=== PATIENT | male | born 1935 | race Caucasian/White ===

== ENCOUNTER 2018-07-22 21:32 | Inpatient (IN) ==
[2018-07-22] MEDS ORDERED: Acetaminophen 325 MG Tablet PO ONE (21:50)
[2018-07-22] MEDS ORDERED: Diphtheria/Tetanus/Pertussis Vaccine Inj 0.5 ML Syringe IM ONE (21:50)
--- NOTE | 2018-07-22 21:56 | ED ---
HPI General Chief complaint: Head Injury Stated complaint: Fall x 1 hr/hit head Time Seen by Provider: 07/22/18 21:42 Source: patient, family and RN notes reviewed Mode of arrival: ambulatory History of Present Illness HPI narrative: 82yM presenting with head injury. The patient's friend says that she had mopped the tile floor in front of the patient's chair, and when he got up he slipped and fell forward, hitting his head on the floor. No LOC, patient reports neck pain ("aching", non-radiating, constant, moderate intensity, not made better or worse by anything), denies numbness/ tingling/ weakness of extremities. He takes aspirin but no other anticoagulants/ antiplatelets. He does not recall when his last tetanus booster was. Family history is non-contributory. Related Data Home Medications Medication Instructions Recorded Confirmed amlodipine 10 mg PO DAILY 07/22/18 07/22/18 aspirin 81 mg PO DAILY 07/22/18 07/22/18 benazepril-hydrochlorothiazide 1 tab PO DAILY 07/22/18 07/22/18 carbidopa-levodopa 2 tab PO Q8H 07/22/18 07/22/18 cetirizine 10 mg PO HS 07/22/18 07/22/18 citalopram 10 mg PO DAILY 07/22/18 07/22/18 ibuprofen 800 mg PO TID PRN 07/22/18 07/22/18 Allergies Allergy/AdvReac Type Severity Reaction Status Date / Time simvastatin Allergy Intermediate RASH Verified 07/22/18 22:02 haloperidol [From Haldol] Allergy Hallucinati Verified 07/22/18 22:05 ons prochlorperazine Allergy Anaphylaxis Verified 07/22/18 22:05 [From Compazine] Review of Systems ROS: all other systems reviewed are negative Constitutional Denies headache(s) Eyes Denies blurry vision Cardiovascular Denies chest pain Respiratory Denies cough Gastrointestinal Denies nausea Genitourinary Denies dysuria Musculoskeletal Reports neck pain Integumentary/Breasts Reports wounds Neurologic Reports tremor(s) Psychiatric Denies confusion PMFSH History History Provided By: Patient Medical History Medical History Hypertension (Acute) Parkinson disease (Acute) Surgical History Surgical History H/O hernia repair (Acute) Social History Social History (Reviewed 07/22/18 @ 21:56 by DEBORAH Block Substance History: No History of Abuse Second Hand Smoke Exposure: No Smoking Status: Former smoker How Often Do You Have a Drink Containing Alcohol: Never Recent Travel in [facility] within the Last 8 Weeks: No Recent Out of Country Travel within the Last 8 Weeks: No Exam Const General: healthy appearing and no acute distress [facility] Other: Superficial 1 cm abrasion to midline upper forehead near hairline, no active bleeding No raccoon eyes or Jeronimo's sign No other head or facial trauma Eyes General: appearance normal, both eyes and all related structures Pupils: PERRL Neck Other: No midline cervical spinal tenderness, cervical collar applied in triage Chest Chest: normal inspection of the chest Resp Effort & Inspection: normal respiratory effort Auscultation: no rhonchi and no wheezes Cardio Rate: regular rate Rhythm: regular rhythm GI Inspection: non-distended Palpation: soft and nontender Skin General: no rashes or lesions noted Neuro General: alert, awake, oriented x3 and no focal motor deficits Other: GCS 15, pupils 3 mm and reactive, speech clear and fluent, answers questions slowly but appropriately (+) tremor (baseline as per friend) Motor strength 5/5 in bilateral shoulder abduction/ adduction/ flexion/ extension, elbow flexion/ extension, deputy assessor strength Motor strength 5/5 in lower extremities, no foot drop Sensation intact to all extremities Psych Affect: normal affect Course Consultations Consultation #1: Case discussed with Dr. Currie of neurosurgery, who recommends that the patient be transferred to the main campus for ICU level of care with AM MRI. I also spoke with Dr. Muse (trauma/ [facility]), who has accepted the patient and would like a CTA neck to rule out blunt cerebrovascular injury, preferably before transfer. Time: 23:03 Initial Documented Vital Signs Temperature 98.5 F 07/22/18 21:36 Pulse Rate 86 07/22/18 21:36 Respiratory Rate 20 07/22/18 21:36 Blood Pressure 132/70 07/22/18 21:36 Pulse Oximetry 96 07/22/18 21:36 Last Documented Vital Signs Temperature 98.5 F 07/22/18 21:36 Pulse Rate 89 07/22/18 23:29 Respiratory Rate 15 07/22/18 23:29 Blood Pressure 146/73 H 07/22/18 23:29 Pulse Oximetry 97 07/22/18 23:29 Critical Care Time Critical Care Time: Yes Total Critical Care Time: 35 Attestation: Total critical care time 35 minutes. This includes examining and stabilizing the patient, gathering a history from a source other than the patient (i.e., chart review, friend), formulating a differential diagnosis, ordering and interpreting laboratory tests, ordering and interpreting radiology tests, discussing the patient's care with other providers (neurosurgery, trauma / critical care attending), arranging transfer to another institution for higher level of care, re-evaluation at frequent intervals, and documentation. Amount of time is separate from teaching, counseling the patient and/or family, and exclusive of procedures. Medical Decision Making MDM Narrative Medical decision making narrative: Assessment: 82yM presenting with head injury after mechanical fall Plan: Tylenol for pain Update tetanus CTH and C spine Addendum: Patient found to have type 3 dens fracture and C1 arch fractures. He will need transfer to the main campus for trauma/ neurosurgical evaluations and ICU level of care. I spoke at length with the patient and his hospice liason ( he is on home hospice for Parkinson's disease); the patient is unsure if he would want surgical intervention if needed but is agreeable to transfer and further workup. Case discussed with Dr. Currie of neurosurgery and Dr. Mina of trauma, please see "consults" section above. Medical Screen Exam Complete: Yes Emergency Medical Condition: Yes Differential Diagnosis Differential Diagnosis: Differential diagnosis includes, but is not limited to: ICH, skull fracture, C spine fracture, closed head injury, facial abrasion Lab Data Lab results reviewed: Yes I reviewed the patient's lab results. Result diagrams: 07/22/18 23:20 07/22/18 23:20 Lab Results 07/22/18 07/22/18 Range/Units 23:20 23:20 CBC w Diff Auto diff final WBC 7.7 (4.0-11.0) th/mm3 RBC 4.78 (4.50-5.90) mil/mm3 Hgb 14.2 (13.0-17.0) gm/dL Hct 42.5 (39.0-51.0) % MCV 88.8 (80.0-100.0) fL MCH 29.7 (27.0-34.0) pg MCHC 33.4 (32.0-36.0) % RDW 13.3 (11.6-17.2) % Plt Count 256 (150-450) th/mm3 MPV 8.1 (7.0-11.0) fL Neut % (Auto) 72.9 H (16.0-70.0) % Lymph % (Auto) 18.3 (9.0-44.0) % [place] % (Auto) 5.3 (0.0-8.0) % Eos % (Auto) 2.8 (0.0-4.0) % Baso % (Auto) 0.7 (0.0-2.0) % Neut # (Auto) 5.6 (1.8-7.7) th/mm3 Lymph # (Auto) 1.4 (1.0-4.8) th/mm3 [place] # (Auto) 0.4 (0.0-0.9) th/mm3 Eos # (Auto) 0.2 (0.0-0.4) th/mm3 Baso # (Auto) 0.1 (0.0-0.2) th/mm3 WBC Differential . Differential Comment . PT 10.8 (9.8-11.6) sec INR 1.1 Ratio Imaging Data Radiologist's impression: Cervical Spine CT 07/22/18 21:50 CONCLUSION: 1. Fracture of the dens at the level of the inferior arch of C1 with mild widening anterior but no posterior displaced fragment. 2. Fractures of the posterior arch of C1 on both the right and left side. Head CT 07/22/18 21:50 CONCLUSION: 1. No acute findings in the brain. . Discharge Plan Discharge Disposition Patient Disposition: 02 Transfer To [facility] Discharge Condition Condition: Stable Discharge Details Diagnosis: C1 cervical fracture, Closed dens fracture, Fall from standing Physicians Team ED Provider: Margarita Pena Primary Care Provider: Robin Jackson Attending Provider: Shilpa Mina Other Providers: Ephraim Currie Status ED Status: Admitted Patient
--- NOTE | 2018-07-22 22:23 | CT ---
EXAM DATE: 07/22/2018 9:57 PM EDT AGE/SEX: 82 years / Male INDICATIONS: Trauma. Fall. Frontal abrasion. CLINICAL DATA: This is the patient's initial encounter. Patient reports that signs and symptoms have been present for 1 day and indicates a pain score of 1/10. MEDICAL/SURGICAL HISTORY: Hypertension. Parkinson's disease. None. RADIATION DOSE: 67.02 CTDI (mGy) COMPARISON: [facility], CT BRAIN W/O CONTRAST, 02/26/2016. . TECHNIQUE: CT of the head without contrast. Using automated exposure control and adjustment of the mA and/or kV according to patient size, radiation dose was kept as low as reasonably achievable to ob tain optimal diagnostic quality images. DICOM format image data is available electronically for revi ew and comparison. FINDINGS: Cerebrum: The ventricles are normal for age. No evidence of midline shift, mass lesion, hemorrhage or acute infarction. No extraaxial fluid collections are seen. Decreased attenuation in the supraten torial white matter suggests diffuse ischemic change, stable from 2016. Posterior Fossa: The cerebellum and brainstem are intact. The 4th ventricle is midline. The cerebe llopontine angle is unremarkable. Extracranial: The visualized portion of the orbits is intact. Skull: The calvaria is intact. No evidence of skull fracture. CONCLUSION: 1. No acute findings in the brain. . Electronically signed by: Wilton Lemos MD 07/22/2018 10:21 PM EDT
--- NOTE | 2018-07-22 22:31 | CT ---
EXAM DATE: 07/22/2018 9:57 PM EDT AGE/SEX: 82 years / Male INDICATIONS: Trauma. Fall. CLINICAL DATA: This is the patient's initial encounter. Patient reports that signs and symptoms have been present for 1 day and indicates a pain score of 1/10. MEDICAL/SURGICAL HISTORY: Hypertension. Parkinson's disease. None. RADIATION DOSE: 26.39 CTDI (mGy) COMPARISON: No prior exams available for comparison. TECHNIQUE: Contiguous axial images were obtained using helical multirow detector technique. The vol umetric data was post-processed with multiplanar reconstruction in oblique axial, sagittal, and coron al planes. Using automated exposure control and adjustment of the mA and/or kV according to patient s ize, radiation dose was kept as low as reasonably achievable to obtain optimal diagnostic quality salvatore ges. DICOM format image data is available electronically for review and comparison. FINDINGS: Examination is abnormal. At C1, there are bilateral posterior ring fractures with 3 mm separation of the right fracture and no displacement of the left fracture. The anterior arch is intact. There is a fracture of the mid dens with mild widening of the anterior fracture line. There is no dis placement of the posterior cortex of the dens with respect to the body of C2. The relationship of ant erior arch and the dens is maintained. The alignment of the cervical vertebral bodies is maintained. There is extensive discogenic degenerat roosevelt changes from C3 through C7 and prominent hypertrophic changes in the facet joints on the left roma e from C3 through C7. No evidence of locked or perched facets. No significant epidural impression seen. Moderate bony neural foraminal stenosis at C3-4, C4-5, C5-6. CONCLUSION: 1. Fracture of the dens at the level of the inferior arch of C1 with mild widening anterior but no p osterior displaced fragment. 2. Fractures of the posterior arch of C1 on both the right and left side. Electronically signed by: Wilton Lemos MD 07/22/2018 10:30 PM EDT
[2018-07-22 23:55] LABS: Baso # (Auto) 0.1 th/mm3 (0.0-0.2); Baso % (Auto) 0.7 % (0.0-2.0); Eos # (Auto) 0.2 th/mm3 (0.0-0.4); Eos % (Auto) 2.8 % (0.0-4.0); Hematocrit 42.5 % (39.0-51.0); Hemoglobin 14.2 gm/dL (13.0-17.0); Lymph # (Auto) 1.4 th/mm3 (1.0-4.8); Lymph % (Auto) 18.3 % (9.0-44.0); Mean Corpuscular HGB Conc 33.4 % (32.0-36.0); Mean Corpuscular Hemoglobin 29.7 pg (27.0-34.0); Mean Corpuscular Volume 88.8 fL (80.0-100.0); Mean Platelet Volume 8.1 fL (7.0-11.0); Mono # (Auto) 0.4 th/mm3 (0.0-0.9); Mono % (Auto) 5.3 % (0.0-8.0); Neut # (Auto) 5.6 th/mm3 (1.8-7.7); Neut % (Auto) 72.9 % (16.0-70.0); Platelet Count 256 th/mm3 (150-450); Red Blood Count 4.78 mil/mm3 (4.50-5.90); Red Cell Distribution Width 13.3 % (11.6-17.2); White Blood Count 7.7 th/mm3 (4.0-11.0)
[2018-07-23 00:05] LABS: INR 1.1 Ratio; Prothrombin Time 10.8 sec (9.8-11.6)
[2018-07-23 00:26] LABS: Chloride 100 meq/L (98-107); Potassium 3.8 meq/L (3.5-5.1); Sodium 135 meq/L (136-145)
[2018-07-23 00:28] LABS: Anion Gap 7 meq/L (5-15); Calcium 9.2 mg/dL (8.5-10.1); Carbon Dioxide 28.1 meq/L (21.0-32.0); Glucose,Random 103 mg/dL (74-106)
[2018-07-23 00:29] LABS: Blood Urea Nitrogen 17 mg/dL (7-18)
[2018-07-23 00:32] LABS: Glomerular Filtration Rate Greater Than 89 mL/min (>89)
[2018-07-23] MEDS: Sod Chloride 0.9% Inj 1,000 ML IV.CONT SCH (01:15)
--- NOTE | 2018-07-23 01:34 | CT ---
EXAM DATE: 07/23/2018 1:04 AM EDT AGE/SEX: 82 years / Male INDICATIONS: Neck fracture. CLINICAL DATA: This is the patient's initial encounter. Patient reports that signs and symptoms have been present for 1 day and indicates a pain score of 8/10. MEDICAL/SURGICAL HISTORY: Non-responsive. Non-responsive. RADIATION DOSE: 12.06 CTDI (mGy) COMPARISON: No prior exams available for comparison. TECHNIQUE: Volumetric scanning was performed using a multirow detector CT scanner during bolus infus ion of 75 ml Omnipaque 350 (iohexol) nonionic water-soluble contrast as a single exam dose. The da ta was postprocessed with a variety of visualization algorithms including full-volume maximum intensi ty projection, multiplanar sliding thin-slab reformation, curved-planar reformation, and surface-rend ering techniques. Using automated exposure control and adjustment of the mA and/or kV according to p atient size, radiation dose was kept as low as reasonably achievable to obtain optimal diagnostic sonia lity images. DICOM format image data is available electronically for review and comparison. Percent stenosis is calculated using the diameter of the stenotic region over the diameter of the nor mal distal internal carotid artery. FINDINGS: Aortic Arch: There is a three-vessel origin of the great vessels from the aorta. No evidence of ost ial narrowing Right Carotid: The common carotid artery is intact. Calcified plaque at the carotid bulb. No evidenc e of significant stenosis. The internal carotid artery lumen is smooth without stenosis. The externa l carotid artery is intact. Left Carotid: The common carotid artery is intact. Calcified plaque at the carotid bulb. No evidenc e of significant stenosis. The internal carotid artery lumen is smooth without stenosis. The exter nal carotid artery is intact. Vertebrals: Left vertebral artery is dominant. No evidence of significant stenosis or dissection CONCLUSION: 1. Atherosclerotic disease of the carotid bulbs but no evidence of significant carotid stenosis. 2. Vertebral arteries are widely patent. No evidence of dissection. 3. Cervical spine fracture fully described on cervical spine CT report. Electronically signed by: Carlyle Quinteros MD 07/23/2018 1:33 AM EDT
[2018-07-23] MEDS ORDERED: Chlorhexidine Gluconate 2% 1 Pack (2 Cloths) TOPICAL PRN (04:00)
[2018-07-23] MEDS: Chlorhexidine Gluconate 2% 1 Pack (2 Cloths) TOPICAL SCH (04:16)
[2018-07-23] MEDS ORDERED: Bisacodyl 10 MG Supp RECTAL PRN (06:08)
[2018-07-23 06:18] LABS: Hematocrit 39.9 % (39.0-51.0)
[2018-07-23 06:32] LABS: Anion Gap 7 meq/L (5-15); Blood Urea Nitrogen 13 mg/dL (7-18); Calcium 8.9 mg/dL (8.5-10.1); Carbon Dioxide 27.7 meq/L (21.0-32.0); Chloride 102 meq/L (98-107); Glomerular Filtration Rate Greater Than 89 mL/min (>89); Glucose,Random 92 mg/dL (74-106); Potassium 4.2 meq/L (3.5-5.1); Sodium 137 meq/L (136-145)
[2018-07-23 06:34] LABS: Hemoglobin 13.5 gm/dL (13.0-17.0); Mean Corpuscular Hemoglobin 29.9 pg (27.0-34.0); Mean Corpuscular Volume 87.5 fL (80.0-100.0); Mean Platelet Volume 8.1 fL (7.0-11.0); Platelet Count 219 th/mm3 (150-450); Red Blood Count 4.53 mil/mm3 (4.50-5.90); Red Cell Distribution Width 13.9 % (11.6-17.2); White Blood Count 7.2 th/mm3 (4.0-11.0)
[2018-07-23] MEDS: Pantoprazole Inj 40 MG Vial IV.PUSH SCH (08:24)
[2018-07-23 09:23] LABS: Baso % (Auto) 0.9 % (0.0-2.0); Eos % (Auto) 2.1 % (0.0-4.0); Lymph # (Auto) 1.1 th/mm3 (1.0-4.8); Lymph % (Auto) 15.3 % (9.0-44.0); Mono # (Auto) 0.4 th/mm3 (0.0-0.9); Mono % (Auto) 6.1 % (0.0-8.0); Neut # (Auto) 5.4 th/mm3 (1.8-7.7); Neut % (Auto) 75.6 % (16.0-70.0)
[2018-07-23 09:24] LABS: Baso # (Auto) 0.1 th/mm3 (0.0-0.2); Eos # (Auto) 0.1 th/mm3 (0.0-0.4)
--- NOTE | 2018-07-23 11:41 | MR ---
EXAM DATE: 07/23/2018 10:14 AM EDT AGE/SEX: 82 years / Male INDICATIONS: Fracture. Post fall. CLINICAL DATA: This is the patient's subsequent encounter. Patient reports that signs and symptoms h ave been present for 1 day and indicates a pain score of 3/10. MEDICAL/SURGICAL HISTORY: Parkinson's disease. . hernia COMPARISON: [facility], CT CERVICAL SPINE W/O CONTRAST, 07/22/2018. . TECHNIQUE: Multiplanar, multisequence MRI examination of the cervical spine was performed without co ntrast. FINDINGS: There are stable fractures of the posterior arch of C1 and minimally displaced dens fracture unchange d from recent CT on July 22. Exaggerated cervical lordosis present. There is moderate degenerative disc disease throughout the cervical spine with posterior disc osteoph yte complexes effacing the anterior thecal sac. However no cord compression. Minimal degenerative ant erolisthesis of C5 on C6, stable. No cord signal abnormalities or evidence for cord impingement or contusion. CONCLUSION: 1. Fractures of the posterior arch of C1 and the dens unchanged from recent CT. No cord signal abnor malities to suggest contusion. No cord impingement. Moderate degenerative changes as above. Electronically signed by: Rickie Choudhury MD 07/23/2018 11:40 AM EDT
--- NOTE | 2018-07-23 13:47 | P.CONNS ---
History of Present Illness Service: Neurosurgery Consult date: 07/23/18 Requesting Physician: Shilpa Mina (Trauma surgery) Reason for Consult: C2 type II odontoid fracture; C1 posterior arch fractures Primary Care Provider: Robin Jackson MD, PhD Family Provider: Robin Jackson MD, PhD History of Present Illness: 82-year-old gentleman who presented to [facility] emergency room after a trip and a fall last evening. The patient's friend says that she had mopped the tile floor in front of the patient's chair, and when he got up he slipped and fell forward, hitting his head on the floor. No LOC, patient reports neck pain but denies any new numbness/ tingling/ weakness of extremities. He relates chronic numbness related to peripheral neuropathy. He also has Parkinson's disease. Workup included CT of the head was negative for any intracranial injury and CT of cervical spine reveals C1 posterior arch bilateral fracture as well as a C2 type II odontoid fracture with widening of the fracture line anteriorly. She is maintaining a cervical spinal precautions with a collar and transferred to [facility] for further management. Review of Systems Constitutional: Reports headache(s), Denies anorexia, Denies body ache(s), Denies chills, Denies daytime sleepiness, Denies excessive sweating, Denies fatigue, Denies fever(s), Denies increased appetite, Denies lack of energy, Denies malaise, Denies night sweats, Denies weakness, Denies weight gain, Denies weight loss, Denies other Eyes: Denies blind spots, Denies blurry vision, Denies bulging eyes, Denies change in vision, Denies double vision, Denies discharge, Denies dry eyes, Denies floaters, Denies irritation, Denies itchy eyes, Denies loss of vision, Denies pain, Denies requires corrective lenses, Denies sensitivity to light, Denies other Ears, Nose, Mouth, and Throat: Denies abnormal hearing, Denies bleeding gums, Denies bad breath, Denies change in voice, Denies dental pain, Denies difficulty swallowing, Denies dizziness, Denies dry mouth, Denies ear discharge , Denies ear pain, Denies facial pain, Denies headache(s), Denies hearing loss, Denies hoarseness, Denies lip swelling, Denies nosebleed, Denies mouth lesions, Denies mouth pain, Denies nasal congestion, Denies nasal discharge, Denies nasal obstruction, Denies nasal trauma, Denies neck lump, Denies neck pain, Denies nose pain, Denies pain with swallowing, Denies poor balance, Denies post nasal drip, Denies ringing in the ears, Denies sinus pain, Denies sinus pressure , Denies sore throat, Denies throat swelling, Denies tongue swelling, Denies other Cardiovascular: Denies chest pain, Denies chest pain at rest, Denies chest pain with activity, Denies excessive sweating, Denies fainting, Denies fast heart rate, Denies foot swelling, Denies generalized swelling, Denies irregular heart rhythm, Denies leg pain with activity, Denies leg sores, Denies leg swelling, Denies lightheadedness, Denies radiating jaw, neck or arm pain, Denies rapid, pounding, or irregular heartbeat, Denies shortness of breath, Denies shortness of breath with activity, Denies shortness of breath when lying down, Denies shortness of breath causing sudden awakening, Denies slow heart rate, Denies other Respiratory: Denies change in phlegm color, Denies chest congestion, Denies cough, Denies coughing up blood, Denies excessive phlegm production, Denies pain on inspiration, Denies pain with cough, Denies shortness of breath, Denies shortness of breath with activity, Denies snoring, Denies stridor, Denies wheezing, Denies other Gastrointestinal: Denies abdominal pain, Denies belching, Denies black, tarry stools, Denies bloating, Denies bright, red blood in stools, Denies change in bowel habits, Denies constant urge to pass stool, Denies change in stools, Denies coffee ground vomit, Denies constipation, Denies cramping, Denies difficulty swallowing, Denies excessive passing of gas, Denies feeling full early, Denies heartburn, Denies incontinent of stools, Denies loose stools, Denies nausea, Denies pain with swallowing, Denies vomiting, Denies vomiting blood, Denies other Genitourinary: Denies blood in semen, Denies blood in urine, Denies decreased urination, Denies difficulty urinating, Denies difficulty with ejaculations, Denies erectile dysfunction, Denies genital lesions, Denies genital pain, Denies painful urination, Denies side pain, Denies frequent nighttime urination , Denies painful ejaculations, Denies penile discharge, Denies scrotal swelling , Denies testicle lump, Denies testicle pain, Denies urinary frequency, Denies urinary hesitancy, Denies urinary incontinence, Denies urinary urgency, Denies other Musculoskeletal: Reports neck pain, Reports numbness (Chronic numbness related to his neuropathy) Skin/Breast: Denies acne, Denies bleeding lesions, Denies boil, Denies breast swelling, Denies breast skin changes, Denies breast pain, Denies breast lump, Denies change in breast shape, Denies change in hair, Denies change in skin color, Denies changing lesions, Denies dry skin, Denies excessive hair growth, Denies hair loss, Denies itching, Denies lesions, Denies nail changes, Denies new lesions, Denies nipple discharge, Denies non-healing lesions, Denies redness , Denies sensitivity to light, Denies rash, Denies skin pain, Denies skin ulcer , Denies sores, Denies stretch pedroza, Denies unusual bruising, Denies wounds, Denies yellowing of the skin, Denies other Neurologic: Reports lack of coordination, Reports numbness, Denies abnormal hearing, Denies abnormal movements, Denies abnormal speech, Denies abnormal walking, Denies behavioral changes, Denies burning sensations, Denies confusion , Denies dizziness, Denies fainting, Denies frequent falls, Denies headache(s), Denies localized weakness, Denies loss of vision, Denies memory loss, Denies other visual disturbances, Denies radiating pain, Denies restless legs, Denies convulsions, Denies seizure-like activity, Denies sensory deficit, Denies tingling, Denies tingling/numbness/burning sensations, Denies tremor(s), Denies unsteadiness, Denies weakness, Denies other Psychiatric: Denies abnormal sleep pattern, Denies anxiety, Denies behavioral changes, Denies change in appetite, Denies change in sex drive, Denies confusion , Denies depression, Denies difficulty concentrating, Denies hearing things others do not hear, Denies hopelessness, Denies irritability, Denies lack of enjoyment, Denies memory loss, Denies mood swings, Denies panic attacks, Denies paranoia, Denies seeing things others do not see, Denies sensing things others do not sense, Denies tactile hallucinations, Denies thoughts of hurting/killing others, Denies thoughts of hurting/killing yourself, Denies other Endocrine: Denies cold intolerance, Denies excessive sweating, Denies flushing, Denies heat intolerance, Denies increased hunger, Denies increased thirst, Denies increased urination, Denies rapid, pounding, or irregular heartbeat, Denies other Hematologic/Lymphatic: Denies easy bleeding, Denies easy bruising, Denies enlarged lymph nodes, Denies other Allergic/Immunologic: Denies GI upset with certain foods, Denies hives, Denies itchy eyes, Denies lip swelling, Denies seasonal runny nose, Denies throat swelling, Denies tongue swelling, Denies wheezing, Denies other PMFSH - History History Provided By: Patient - Medical History Medical History: Medical History (Last Updated 07/23/18 @ 13:46 by Ephraim Currie MD) Hypertension Neuropathy, peripheral Parkinson disease - Surgical History Surgical History: Surgical History (Last Reviewed 07/23/18 @ 13:45 by Ephraim Currie MD) H/O hernia repair - Tobacco History Second Hand Smoke Exposure: No Tobacco Use In Past 30 Days: No Smoking Status: Former smoker - Alcohol History How Often Do You Have a Drink Containing Alcohol: Never - Substance Use History Substance History: No History of Abuse - Travel History Recent Travel in the [facility] Within the Last 8 Weeks: No Recent Travel Out of the Country Within the Last 8 Weeks: No - Immunization History Tetanus Immunization: Unsure Hx Influenza Vaccine This Season: No Medications and Allergies Active Medications: Active Medications Albuterol (Duoneb Neb (Prn)) 1 ampul NEB Q2HR NEB PRN PRN Reason: SHORTNESS OF BREATH Bisacodyl (Dulcolax Supp) 10 mg RECTAL DAILY PRN PRN Reason: constipation Chlorhexidine Gluconate (Chlorhexidine 2% Cloth) 3 pack TOPICAL DAILY@0400 [facility] Stop: 07/28/18 03:59 Last Admin: 07/23/18 04:16 Dose: 3 pack Chlorhexidine Gluconate (Chlorhexidine 2% Cloth) 3 pack TOPICAL DAILY@0400 PRN PRN Reason: Extra cloth needed Stop: 07/28/18 03:59 Enalaprilat (Vasotec Inj) 1.25 mg IV.PUSH Q6H PRN PRN Reason: SBP>180, DBP>95 Sodium Chloride (Ns Inj) 1,000 mls @ 75 mls/hr IV.CONT .[id number] [facility] Last Admin: 07/23/18 01:15 Dose: 75 mls/hr Acetaminophen (Ofirmev Inj) 1,000 mg in 100 mls @ 400 mls/hr IV.SIG Q6H PRN PRN Reason: PAIN SCALE 1 TO 10 Last Admin: 07/23/18 08:24 Dose: 400 mls/hr Ondansetron HCl (Zofran Inj) 4 mg IV.PUSH Q6H PRN PRN Reason: NAUSEA OR VOMITING Pantoprazole Sodium (Protonix Inj) 40 mg IV.PUSH Q24H [facility] Last Admin: 07/23/18 08:24 Dose: 40 mg Allergies Allergy/AdvReac Type Severity Reaction Status Date / Time simvastatin Allergy Intermediate RASH Verified 07/22/18 22:02 haloperidol [From Haldol] Allergy Hallucinati Verified 07/22/18 22:05 ons prochlorperazine Allergy Anaphylaxis Verified 07/22/18 22:05 [From Compazine] Home Medications Medication Instructions Recorded Confirmed Type amlodipine 10 mg PO DAILY 07/22/18 07/22/18 History aspirin 81 mg PO DAILY 07/22/18 07/22/18 History benazepril-hydrochlorothiazide 1 tab PO DAILY 07/22/18 07/22/18 History carbidopa-levodopa 2 tab PO Q8H 07/22/18 07/22/18 History cetirizine 10 mg PO HS 07/22/18 07/22/18 History citalopram 10 mg PO DAILY 07/22/18 07/22/18 History ibuprofen 800 mg PO TID PRN 07/22/18 07/22/18 History Exam Vital signs: Vital Signs 07/22/18 21:36 07/22/18 23:29 07/23/18 04:00 Temperature 98.5 F 98.2 F Pulse Rate 86 89 72 Respiratory Rate 20 15 18 Blood Pressure 132/70 146/73 H 133/62 Pulse Oximetry 96 97 97 07/23/18 08:00 07/23/18 12:00 Temperature 97.7 F 98.0 F Pulse Rate 73 76 Respiratory Rate 14 15 Blood Pressure 148/77 H 131/63 Pulse Oximetry 96 96 Intake & Output 07/22/18 07/23/18 07/23/18 18:59 06:59 18:59 Intake Total 0 / 0 Output Total 800 / 800 Balance -800 / -800 Weight 74.6 kg Intake: Oral 0 / 0 Output: Urine Amount (Catheter) 800 / 800 Coude 800 / 800 - Constitutional no acute distress - Routine HEENT Exam Head: Present: normocephalic, abrasion (Forehead abrasion), hematoma Eye: Present: EOMI, PERRL ENT: Present: mucous membranes moist, oropharynx clear, nares patent, external ear normal - Routine Neck Exam Present: tenderness ([place] J cervical collar in place), trachea midline - Routine Respiratory Exam Present: CTA bilaterally - Routine Cardiovascular Exam Present: RRR, S1, S2 - Routine Abdominal Exam Present: soft, normoactive bowel sounds - Routine Extremities Exam Present: full ROM - Routine Skin Exam Present: intact, wounds - Routine Neurological Exam Present: oriented X3, CN II-XII intact, plantar reflex, moving all extremities, normal speech, tremors Results - Laboratory Findings CBC and BMP: 07/23/18 05:43 07/23/18 05:43 Abnormal lab findings: Abnormal Labs 07/22/18 07/22/18 07/23/18 23:20 23:20 05:43 Neut % (Auto) 72.9 H 75.6 H Sodium 135 L Creatinine 07/23/18 05:43 Neut % (Auto) Sodium Creatinine 0.57 L - Diagnostic Findings Additional findings: Impressions Cervical Spine CT 07/22/18 21:50 CONCLUSION: 1. Fracture of the dens at the level of the inferior arch of C1 with mild widening anterior but no posterior displaced fragment. 2. Fractures of the posterior arch of C1 on both the right and left side. Head CT 07/22/18 21:50 CONCLUSION: 1. No acute findings in the brain. . Cervical Spine MRI 07/23/18 00:00 CONCLUSION: 1. Fractures of the posterior arch of C1 and the dens unchanged from recent CT. No cord signal abnormalities to suggest contusion. No cord impingement. Moderate degenerative changes as above. Neck CTA 07/23/18 00:00 CONCLUSION: 1. Atherosclerotic disease of the carotid bulbs but no evidence of significant carotid stenosis. 2. Vertebral arteries are widely patent. No evidence of dissection. 3. Cervical spine fracture fully described on cervical spine CT report. Assessment and Plan - Assessment (1) Type II dens fracture of second cervical vertebra Code(s): S12.110A - Anterior displaced Type II dens fracture, initial encounter for closed fracture Status: Acute (2) C1 cervical fracture Code(s): S12.000A - Unspecified displaced fracture of first cervical vertebra, initial encounter for closed fracture Status: Acute (3) Parkinson disease Code(s): G20 - Parkinson's disease Status: Acute - Plan 82-year-old gentleman with debilitating Parkinson's disease with the C1 bilateral posterior arch and C2 type II odontoid fracture after a fall last evening. The C1 fracture will likely heal with a collar but the type II odontoid fracture is unstable and will require intervention with anterior C2 odontoid screw placement. 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 Plan for surgical intervention tomorrow and will discuss with family when available. (1) Type II dens fracture of second cervical vertebra Qualifiers: Encounter type: initial encounter Fracture type: closed Fracture alignment: posteriorly displaced Qualified Code(s): S12.111A - Posterior displaced Type II dens fracture, initial encounter for closed fracture (2) C1 cervical fracture Qualifiers: Encounter type: initial encounter Fracture type: closed Fracture morphology : posterior arch Fracture alignment: displaced Qualified Code(s): S12.030A - Displaced posterior arch fracture of first cervical vertebra, initial encounter for closed fracture
[2018-07-23] MEDS ORDERED: Non-Formulary Drug (Benazepril-Hydrochlorothiazide [Benazepril-Hydrochlorothiazide] 1 TAB) PO SCH (14:00)
--- NOTE | 2018-07-23 14:16 | P.HPCC ---
History of Present Illness Primary Care Physician: Robin Jackson MD, PhD History of Present Illness: 82-year-old male transfer from [facility]. She was seen in the ER after a fall from his wheelchair, which resulted in a C1 fracture -patient is with severe Parkinson disease, he is hemodynamically normal, neurologically intact, his baseline range of motion all extremities Inpatient Certification: I certify that the inpatient services were ordered in accordance with Medicare regulations governing the order. This includes certification that hospital inpatient services are reasonable and necessary and in the case of services not specified as inpatient-only under 42 CFR 419.22(n), that they are appropriately provided as inpatient services in accordance to with the 2-midnight benchmark under 43 CFR 412.3(e) Estimated Total Length of Stay (Days): 2 Plans for Post Hospital Care: Home Review of Systems All other systems reviewed negative except as stated in HPI [facility] - History History Provided By: Patient - Medical History Medical History: Medical History (Last Reviewed 07/23/18 @ 13:55 by Maria Del Rosario Currie PT) Hypertension Neuropathy, peripheral Parkinson disease - Surgical History Surgical History: Surgical History (Last Reviewed 07/23/18 @ 13:55 by Maria Del Rosario Currie, PT) H/O hernia repair - Tobacco History Second Hand Smoke Exposure: No Tobacco Use In Past 30 Days: No Smoking Status: Former smoker - Alcohol History How Often Do You Have a Drink Containing Alcohol: Never - Substance Use History Substance History: No History of Abuse - Travel History Recent Travel in the [place] Within the Last 8 Weeks: No Recent Travel Out of the Country Within the Last 8 Weeks: No - Immunization History Tetanus Immunization: Unsure Hx Influenza Vaccine This Season: No Medications and Allergies Active Medications: Active Medications Albuterol (Duoneb Neb (Prn)) 1 ampul NEB Q2HR NEB PRN PRN Reason: SHORTNESS OF BREATH Amlodipine Besylate (Norvasc) 10 mg PO DAILY [facility] Aspirin (Ecotrin) 81 mg PO DAILY [facility] Bisacodyl (Dulcolax Supp) 10 mg RECTAL DAILY PRN PRN Reason: constipation Cetirizine HCl (Zyrtec) 10 mg PO HS [facility] Chlorhexidine Gluconate (Chlorhexidine 2% Cloth) 3 pack TOPICAL DAILY@0400 [facility] Stop: 07/28/18 03:59 Last Admin: 07/23/18 04:16 Dose: 3 pack Chlorhexidine Gluconate (Chlorhexidine 2% Cloth) 3 pack TOPICAL DAILY@0400 PRN PRN Reason: Extra cloth needed Stop: 07/28/18 03:59 Enalaprilat (Vasotec Inj) 1.25 mg IV.PUSH Q6H PRN PRN Reason: SBP>180, DBP>95 Sodium Chloride (Ns Inj) 1,000 mls @ 75 mls/hr IV.CONT .[id number] [facility] Last Admin: 07/23/18 01:15 Dose: 75 mls/hr Acetaminophen (Ofirmev Inj) 1,000 mg in 100 mls @ 400 mls/hr IV.SIG Q6H PRN PRN Reason: PAIN SCALE 1 TO 10 Last Admin: 07/23/18 08:24 Dose: 400 mls/hr Ibuprofen (Motrin) 800 mg PO TID PRN PRN Reason: Pain Non-Formulary Medication (Benazepril-Hydrochlorothiazide [Benazepril- Hydrochlorothiazide]) 1 tab PO DAILY [facility] Non-Formulary Medication (Carbidopa-Levodopa [Carbidopa-Levodopa]) 2 tab PO Q8H [facility] Non-Formulary Medication (Citalopram [Citalopram]) 10 mg PO DAILY [facility] Ondansetron HCl (Zofran Inj) 4 mg IV.PUSH Q6H PRN PRN Reason: NAUSEA OR VOMITING Pantoprazole Sodium (Protonix Inj) 40 mg IV.PUSH Q24H [facility] Last Admin: 07/23/18 08:24 Dose: 40 mg Allergies Allergy/AdvReac Type Severity Reaction Status Date / Time simvastatin Allergy Intermediate RASH Verified 07/22/18 22:02 haloperidol [From Haldol] Allergy Hallucinati Verified 07/22/18 22:05 ons prochlorperazine Allergy Anaphylaxis Verified 07/22/18 22:05 [From Compazine] Home Medications Medication Instructions Recorded Confirmed Type amlodipine 10 mg PO DAILY 07/22/18 07/22/18 History aspirin 81 mg PO DAILY 07/22/18 07/22/18 History benazepril-hydrochlorothiazide 1 tab PO DAILY 07/22/18 07/22/18 History carbidopa-levodopa 2 tab PO Q8H 07/22/18 07/22/18 History cetirizine 10 mg PO HS 07/22/18 07/22/18 History citalopram 10 mg PO DAILY 07/22/18 07/22/18 History ibuprofen 800 mg PO TID PRN 07/22/18 07/22/18 History Results - Labs CBC & Chem 7: 07/23/18 05:43 07/23/18 05:43 Labs: Short CBC 07/22/18 07/23/18 Range/Units 23:20 05:43 WBC 7.7 7.2 (4.0-11.0) th/mm3 Hgb 14.2 13.5 (13.0-17.0) gm/dL Hct 42.5 39.9 (39.0-51.0) % Plt Count 256 219 (150-450) th/mm3 BMP 07/22/18 07/23/18 23:20 05:43 Sodium 135 L 137 Potassium 3.8 4.2 Chloride 100 102 Carbon Dioxide 28.1 27.7 BUN 17 13 Creatinine 0.70 0.57 L Calcium 9.2 8.9 - Imaging Impressions Cervical Spine CT 07/22/18 21:50 CONCLUSION: 1. Fracture of the dens at the level of the inferior arch of C1 with mild widening anterior but no posterior displaced fragment. 2. Fractures of the posterior arch of C1 on both the right and left side. Head CT 07/22/18 21:50 CONCLUSION: 1. No acute findings in the brain. . Cervical Spine MRI 07/23/18 00:00 CONCLUSION: 1. Fractures of the posterior arch of C1 and the dens unchanged from recent CT. No cord signal abnormalities to suggest contusion. No cord impingement. Moderate degenerative changes as above. Neck CTA 07/23/18 00:00 CONCLUSION: 1. Atherosclerotic disease of the carotid bulbs but no evidence of significant carotid stenosis. 2. Vertebral arteries are widely patent. No evidence of dissection. 3. Cervical spine fracture fully described on cervical spine CT report. Exam Vital signs: Vital Signs 07/22/18 21:36 07/22/18 23:29 07/23/18 04:00 Temperature 98.5 F 98.2 F Pulse Rate 86 89 72 Respiratory Rate 20 15 18 Blood Pressure 132/70 146/73 H 133/62 Pulse Oximetry 96 97 97 07/23/18 08:00 07/23/18 12:00 Temperature 97.7 F 98.0 F Pulse Rate 73 76 Respiratory Rate 14 15 Blood Pressure 148/77 H 131/63 Pulse Oximetry 96 96 Intake & Output 07/22/18 07/23/18 07/23/18 18:59 06:59 18:59 Intake Total 0 / 0 Output Total 800 / 800 Balance -800 / -800 Weight 74.6 kg Intake: Oral 0 / 0 Output: Urine Amount (Catheter) 800 / 800 Coude 800 / 800 - Constitutional no acute distress - Routine HEENT Exam Head: Present: normocephalic, atraumatic Eye: Present: EOMI, PERRL ENT: Present: mucous membranes dry - Routine Neck Exam Present: supple, tenderness, trachea midline - Routine Respiratory Exam Present: CTA bilaterally - Routine Cardiovascular Exam Present: RRR - Routine Abdominal Exam Present: soft - Routine Extremities Exam Present: full ROM, pulses intact - Routine Skin Exam Present: intact - Routine Neurological Exam Present: alert, normal speech, tremors Caprini VTE Risk Assessment Caprini VTE Risk Assessment: Moderate/High Risk (score >= 2) (trauma) VTE Pharmacological Exception Reason: High risk for bleeding Caprini Risk Assessment Model: Point Value = 1 Point Value = 2 Point Value = 3 Point Value = 5 Age 41-60 Minor surgery BMI > 25 kg/m2 Swollen legs Varicose veins or History of unexplained or recurrent spontaneous Oral contraceptives or hormone replacement Sepsis (< 1 month) Serious lung disease, including pneumonia (< 1 month) Abnormal pulmonary function Acute myocardial infarction Congestive heart failure (< 1 month) History of inflammatory bowel disease Medical patient at bed rest Age 61-74 Arthroscopic surgery Major open surgery (> 45 min) Laparoscopic surgery (> 45 min) Malignancy Confined to bed (> 72 hours) Immobilizing plaster cast Central venous access Age >= 75 History of VTE Family history of VTE Factor V Leiden Prothrombin [id number] Lupus anticoagulant Anticardiolipin antibodies Elevated serum homocysteine Heparin-induced thrombocytopenia Other congenital or acquired thrombophilia Stroke (< 1 month) Elective arthroplasty Hip, pelvis, or leg fracture Acute spinal cord injury (< 1 month) Prophylaxis Regimen: Total Risk Factor Score Risk Level Prophylaxis Regimen 0-1 Low Early ambulation 2 Moderate Order ONE of the following: *Sequential Compression Device (SCD) *Heparin 5000 units SQ BID 3-4 Higher Order ONE of the following medications: *Heparin 5000 units SQ TID *Enoxaparin/Lovenox 40 mg SQ daily (WT < 150 kg, CrCl > 30 mL/min) *Enoxaparin/Lovenox 30 mg SQ daily (WT < 150 kg, CrCl > 10-29 mL/min) *Enoxaparin/Lovenox 30 mg SQ BID (WT < 150 kg, CrCl > 30 mL/min) AND/OR *Sequential Compression Device (SCD) 5 or more Highest Order ONE of the following medications: *Heparin 5000 units SQ TID (Preferred with Epidurals) *Enoxaparin/Lovenox 40 mg SQ daily (WT < 150 kg, CrCl > 30 mL/min) *Enoxaparin/Lovenox 30 mg SQ daily (WT < 150 kg, CrCl > 10-29 mL/min) *Enoxaparin/Lovenox 30 mg SQ BID (WT < 150 kg, CrCl > 30 mL/min) AND *Sequential Compression Device (SCD) Assessment and Plan - Assessment and Plan Plan: pain control MRI C spine as per NS speech and swallow study Edward martinez
[2018-07-23] MEDS: Citalopram 20 MG Tablet PO SCH (15:00)
[2018-07-23] MEDS: amLODIPine 10 MG Tablet PO SCH (15:00)
--- NOTE | 2018-07-23 16:27 | XR ---
EXAM DATE: 07/23/2018 12:00 AM EDT AGE/SEX: 82 years / Male INDICATIONS: Short of breath. CLINICAL DATA: This is the patient's subsequent encounter. Patient reports that signs and symptoms h ave been present for 2 days and indicates a pain score of 0/10. MEDICAL/SURGICAL HISTORY: None. None. COMPARISON: No prior exams available for comparison. FINDINGS: Mild diffuse interstitial prominence and senescent changes. Right apical pleural-parenchymal scarring . No significant focal pleural or parenchymal abnormalities. The cardiomediastinal contours are unrem arkable. Osseous structures are intact. CONCLUSION: 1. Senescent changes and right apical pleural-parenchymal scarring. 2. No acute abnormality. Electronically signed by: Lavell Carreno MD 07/23/2018 4:25 PM EDT
--- NOTE | 2018-07-23 16:33 | P.CONIM ---
History of Present Illness Service: [facility] Consult date: 07/23/18 Requesting Physician: Shilpa Mina Reason for Consult: MEDICAL MANAGEMENT Primary Care Provider: Robin Jackson MD, PhD Family Provider: Robin Jackson MD, PhD Chief Complaint: C2 type II odontoid fracture and C1 posterior arch fractures History of Present Illness: Patient is a 82-year-old gentleman who was recently in hospice. He was seen at the [place] emergency department after trip and fall last evening. Patient's friend states that he had down off the tile floor and from the patient's chair and when he got up he slipped and fell forward hitting his head on the floor denies any loss of consciousness patient reports neck pain but denies any new numbness or tingling or weakness of extremities. He had chronic numbness related to peripheral neuropathy. Also has history of Parkinson disease. Had a CT of the head which was negative for any intracranial injury and CAT scan of the cervical spine revealed a C1 posterior arch bilateral fracture as well as a C2 type II odontoid fracture with widening of the fracture line anteriorly patient has a cervical collar in place transferred to the main hospital for evaluation has been seen by neurosurgery as well as trauma surgery we have now been consulted to help with medical management and to assume care of appears We will follow the patient throughout the admission for any other issues that may arise Patient is scheduled to have surgery tomorrow with neurosurgery Dr. Currie Review of Systems All other systems reviewed negative except as stated in HPI PMFSH - History History Provided By: Patient - Medical History Medical History: Medical History (Last Reviewed 07/23/18 @ 16:21 by Harvinder Mayo DO) Hypertension Neuropathy, peripheral Parkinson disease - Surgical History Surgical History: Surgical History (Last Reviewed 07/23/18 @ 16:21 by Harvinder Mayo DO) H/O hernia repair - Family History Family History: Family History (Last Reviewed 07/23/18 @ 16:21 by Harvinder Mayo DO) Other Family history of hypertension - Social History I have reviewed the patient's Social History: Yes - Tobacco History Second Hand Smoke Exposure: No Tobacco Use In Past 30 Days: No Smoking Status: Former smoker Tobacco Type: Cigarettes - Alcohol History How Often Do You Have a Drink Containing Alcohol: Never - Substance Use History Substance History: No History of Abuse - Travel History History of Recent Travel: No Recent Travel in the [place] Within the Last 8 Weeks: No Recent Travel Out of the Country Within the Last 8 Weeks: No - Immunization History Tetanus Immunization: Unsure Hx Influenza Vaccine This Season: No Medications and Allergies Active Medications: Active Medications Albuterol (Duoneb Neb (Prn)) 1 ampul NEB Q2HR NEB PRN PRN Reason: SHORTNESS OF BREATH Amlodipine Besylate (Norvasc) 10 mg PO DAILY [facility] Aspirin (Ecotrin) 81 mg PO DAILY [facility] Bisacodyl (Dulcolax Supp) 10 mg RECTAL DAILY PRN PRN Reason: constipation Carbidopa/Levodopa (Sinemet Cr 50/200 Mg) 1 tab PO Q8H [facility] Cetirizine HCl (Zyrtec) 10 mg PO HS [facility] Chlorhexidine Gluconate (Chlorhexidine 2% Cloth) 3 pack TOPICAL DAILY@0400 [facility] Stop: 07/28/18 03:59 Last Admin: 07/23/18 04:16 Dose: 3 pack Chlorhexidine Gluconate (Chlorhexidine 2% Cloth) 3 pack TOPICAL DAILY@0400 PRN PRN Reason: Extra cloth needed Stop: 07/28/18 03:59 Citalopram Hydrobromide (Celexa) 10 mg PO DAILY [facility] Enalaprilat (Vasotec Inj) 1.25 mg IV.PUSH Q6H PRN PRN Reason: SBP>180, DBP>95 Hydrochlorothiazide (Microzide) 12.5 mg PO DAILY [facility] Sodium Chloride (Ns Inj) 1,000 mls @ 75 mls/hr IV.CONT .[id number] [facility] Last Admin: 07/23/18 01:15 Dose: 75 mls/hr Acetaminophen (Ofirmev Inj) 1,000 mg in 100 mls @ 400 mls/hr IV.SIG Q6H PRN PRN Reason: PAIN SCALE 1 TO 10 Last Admin: 07/23/18 08:24 Dose: 400 mls/hr Ibuprofen (Motrin) 800 mg PO TID PRN PRN Reason: PAIN SCALE 1 TO 10 Lisinopril (Prinivil) 10 mg PO DAILY [facility] Ondansetron HCl (Zofran Inj) 4 mg IV.PUSH Q6H PRN PRN Reason: NAUSEA OR VOMITING Pantoprazole Sodium (Protonix Inj) 40 mg IV.PUSH Q24H [facility] Last Admin: 07/23/18 08:24 Dose: 40 mg Allergies Allergy/AdvReac Type Severity Reaction Status Date / Time simvastatin Allergy Intermediate RASH Verified 07/22/18 22:02 haloperidol [From Haldol] Allergy Hallucinati Verified 07/22/18 22:05 ons prochlorperazine Allergy Anaphylaxis Verified 07/22/18 22:05 [From Compazine] Home Medications Medication Instructions Recorded Confirmed Type amlodipine 10 mg PO DAILY 07/22/18 07/22/18 History aspirin 81 mg PO DAILY 07/22/18 07/22/18 History benazepril-hydrochlorothiazide 1 tab PO DAILY 07/22/18 07/22/18 History carbidopa-levodopa 2 tab PO Q8H 07/22/18 07/22/18 History cetirizine 10 mg PO HS 07/22/18 07/22/18 History citalopram 10 mg PO DAILY 07/22/18 07/22/18 History ibuprofen 800 mg PO TID PRN 07/22/18 07/22/18 History Exam Vital signs: Vital Signs 07/22/18 21:36 07/22/18 23:29 07/23/18 04:00 Temperature 98.5 F 98.2 F Pulse Rate 86 89 72 Respiratory Rate 20 15 18 Blood Pressure 132/70 146/73 H 133/62 Pulse Oximetry 96 97 97 07/23/18 08:00 07/23/18 12:00 Temperature 97.7 F 98.0 F Pulse Rate 73 76 Respiratory Rate 14 15 Blood Pressure 148/77 H 131/63 Pulse Oximetry 96 96 Intake & Output 07/22/18 07/23/18 07/23/18 18:59 06:59 18:59 Intake Total 0 / 0 Output Total 800 / 800 Balance -800 / -800 Weight 74.6 kg Intake: Oral 0 / 0 Output: Urine Amount (Catheter) 800 / 800 Coude 800 / 800 Narrative: GENERAL: Awake alert talkative and cooperative currently wearing a hard cervical collar appears to be a [place] J collar SKIN: Warm and dry. HEAD: Atraumatic. Normocephalic. EYES: Pupils equal and round. No scleral icterus. No injection or drainage. EOMI ENT: No nasal bleeding or discharge. Mucous membranes pink and moist. NECK: Trachea midline. No JVD. Hard collar in place [place] J CARDIOVASCULAR: Regular rate and rhythm. S1-S2 no S3 or S4 RESPIRATORY: No accessory muscle use. Clear to auscultation. Breath sounds equal bilaterally. GASTROINTESTINAL: Abdomen soft, non-tender, nondistended. Hepatic and splenic margins not palpable. MUSCULOSKELETAL: Extremities without clubbing, cyanosis, or edema. No obvious deformities. NEUROLOGICAL: Awake and alert. No obvious cranial nerve deficits. Motor grossly within normal limits. 4 out of 5 muscle strength in the arms and legs. Normal speech. PSYCHIATRIC: Appropriate mood and affect; insight and judgment ABnormal. Results - Labs CBC & Chem 7: 07/23/18 05:43 07/23/18 05:43 Labs: Laboratory Results - last 24 hr 07/22/18 07/22/18 07/22/18 23:00 23:20 23:20 CBC w Diff Auto diff final WBC 7.7 RBC 4.78 Hgb 14.2 Hct 42.5 MCV 88.8 MCH 29.7 MCHC 33.4 RDW 13.3 Plt Count 256 MPV 8.1 Neut % (Auto) 72.9 H Lymph % (Auto) 18.3 [place] % (Auto) 5.3 Eos % (Auto) 2.8 Baso % (Auto) 0.7 Neut # (Auto) 5.6 Lymph # (Auto) 1.4 [place] # (Auto) 0.4 Eos # (Auto) 0.2 Baso # (Auto) 0.1 WBC Differential . Differential Comment . PT 10.8 INR 1.1 Sodium Potassium Chloride Carbon Dioxide Anion Gap BUN Creatinine Estimated GFR Random Glucose Calcium Nasal Screen MRSA (PCR) Blood Type O Positive Blood Type Recheck Required Antibody Screen Negative 07/22/18 07/23/18 07/23/18 23:20 05:43 05:43 CBC w Diff WBC 7.2 RBC 4.53 Hgb 13.5 Hct 39.9 MCV 87.5 MCH 29.9 MCHC RDW 13.9 Plt Count 219 MPV 8.1 Neut % (Auto) 75.6 H Lymph % (Auto) 15.3 [place] % (Auto) 6.1 Eos % (Auto) 2.1 Baso % (Auto) 0.9 Neut # (Auto) 5.4 Lymph # (Auto) 1.1 [place] # (Auto) 0.4 Eos # (Auto) 0.1 Baso # (Auto) 0.1 WBC Differential . Differential Comment Auto diff final PT INR Sodium 135 L 137 Potassium 3.8 4.2 Chloride 100 102 Carbon Dioxide 28.1 27.7 Anion Gap 7 7 BUN 17 13 Creatinine 0.70 0.57 L Estimated GFR Greater than 89 Greater than 89 Random Glucose 103 92 Calcium 9.2 8.9 Nasal Screen MRSA (PCR) Blood Type Blood Type Recheck Antibody Screen 07/23/18 06:30 CBC w Diff WBC RBC Hgb Hct MCV MCH MCHC RDW Plt Count MPV Neut % (Auto) Lymph % (Auto) [place] % (Auto) Eos % (Auto) Baso % (Auto) Neut # (Auto) Lymph # (Auto) [place] # (Auto) Eos # (Auto) Baso # (Auto) WBC Differential Differential Comment PT INR Sodium Potassium Chloride Carbon Dioxide Anion Gap BUN Creatinine Estimated GFR Random Glucose Calcium Nasal Screen MRSA (PCR) Not detected Blood Type Blood Type Recheck Antibody Screen - Imaging Impressions Cervical Spine CT 07/22/18 21:50 CONCLUSION: 1. Fracture of the dens at the level of the inferior arch of C1 with mild widening anterior but no posterior displaced fragment. 2. Fractures of the posterior arch of C1 on both the right and left side. Head CT 07/22/18 21:50 CONCLUSION: 1. No acute findings in the brain. . Cervical Spine MRI 07/23/18 00:00 CONCLUSION: 1. Fractures of the posterior arch of C1 and the dens unchanged from recent CT. No cord signal abnormalities to suggest contusion. No cord impingement. Moderate degenerative changes as above. Neck CTA 07/23/18 00:00 CONCLUSION: 1. Atherosclerotic disease of the carotid bulbs but no evidence of significant carotid stenosis. 2. Vertebral arteries are widely patent. No evidence of dissection. 3. Cervical spine fracture fully described on cervical spine CT report. Assessment and Plan - Plan Patient is an 82-year-old gentleman with Parkinson's disease found to have a C1 bilateral posterior arch and C2 type II odontoid fracture after a fall yesterday. See one fracture will likely heal with the collars but the type II odontoid fracture is unstable or require intervention with an anterior C2 odontoid screw placement. And/or Halo. Patient will undergo surgery tomorrow with neurosurgery Dr. Currie Pain control N.p.o. after midnight Status post fall Once patient has had surgery will need physical therapy and occupational therapy and possibly even speech therapy Chronic Parkinson's disease -Continue on his Sinemet carbidopalevodopa Chronic peripheral neuropathy Hypertension on amlodipine and benazepril hydrochlorothiazide Depression on citalopram Seasonal allergies continue on CERTIRIZINE A.m. labs Discussed with RN and patient Code Status: DNR Discussed Condition With: RN and patient Discharge Planning: Once
[2018-07-23] MEDS: Carbidopa/Levodopa CR 50/200 MG Tablet PO SCH (17:00)
[2018-07-23] MEDS: Lisinopril 10 MG Tablet PO SCH (17:00)
[2018-07-23 19:44] LABS: Bilirubin,Urine Negative (Negative); Clarity,Urine Clear (Clear); Color,Urine Yellow (Yellw/Straw); Glucose,Urine (UA) Negative (Negative); Leukocyte Esterase,Urine Trace (Negative); Mucus,Urine Few /lpf (Occasional); Nitrite,Urine Negative (Negative); Specific Gravity,Urine 1.014 (1.002-1.035)
[2018-07-24] MEDS: Carbidopa/Levodopa CR 50/200 MG Tablet PO SCH ×2 (00:57→08:00)
[2018-07-24] MEDS: Sod Chloride 0.9% Inj 1,000 ML IV.CONT SCH ×2 (01:58→01:59)
[2018-07-24 04:29] LABS: Baso # (Auto) 0.1 th/mm3 (0.0-0.2); Baso % (Auto) 0.9 % (0.0-2.0); Eos # (Auto) 0.2 th/mm3 (0.0-0.4); Eos % (Auto) 3.1 % (0.0-4.0); Hematocrit 39.8 % (39.0-51.0); Hemoglobin 13.5 gm/dL (13.0-17.0); Lymph # (Auto) 1.3 th/mm3 (1.0-4.8); Mean Corpuscular HGB Conc 34.1 % (32.0-36.0); Mean Corpuscular Hemoglobin 29.9 pg (27.0-34.0); Mean Corpuscular Volume 87.9 fL (80.0-100.0); Mean Platelet Volume 7.9 fL (7.0-11.0); Mono # (Auto) 0.6 th/mm3 (0.0-0.9); Mono % (Auto) 7.3 % (0.0-8.0); Neut # (Auto) 5.6 th/mm3 (1.8-7.7); Neut % (Auto) 71.7 % (16.0-70.0); Platelet Count 225 th/mm3 (150-450); Red Blood Count 4.52 mil/mm3 (4.50-5.90); Red Cell Distribution Width 14.2 % (11.6-17.2); White Blood Count 7.8 th/mm3 (4.0-11.0)
[2018-07-24 05:01] LABS: Albumin 3.6 g/dL (3.4-5.0); Anion Gap 7 meq/L (5-15); Aspartate Aminotransferase 10 U/L (15-37); Blood Urea Nitrogen 15 mg/dL (7-18); Calcium 8.7 mg/dL (8.5-10.1); Carbon Dioxide 28.9 meq/L (21.0-32.0); Chloride 102 meq/L (98-107); Glomerular Filtration Rate Greater Than 89 mL/min (>89); Glucose,Random 90 mg/dL (74-106); Magnesium 2.1 mg/dL (1.5-2.5); Sodium 138 meq/L (136-145)
[2018-07-24 05:02] LABS: Alanine Aminotransferase 7 U/L (12-78); Phosphorus 3.4 mg/dL (2.5-4.9)
[2018-07-24 05:11] LABS: Alkaline Phosphatase 91 U/L (45-117); Free T4 (Free Thyroxine) 0.95 ng/dL (0.76-1.46); Total Protein 6.8 g/dL (6.4-8.2)
[2018-07-24] MEDS: Chlorhexidine Gluconate 2% 1 Pack (2 Cloths) TOPICAL SCH (06:25)
[2018-07-24] MEDS: Pantoprazole Inj 40 MG Vial IV.PUSH SCH (06:28)
[2018-07-24] MEDS ORDERED: Bupivacaine/Epinephrine 0.5% Inj 50 ML Vial ONE (06:51)
[2018-07-24] MEDS ORDERED: Thrombin Topical Soln 5,000 UNIT Vial TOPICAL ONE (06:58)
[2018-07-24] MEDS ORDERED: Gelatin Size 100 Topical Foam ONE (06:58)
[2018-07-24] MEDS: Citalopram 20 MG Tablet PO SCH (08:00)
[2018-07-24] MEDS: Lisinopril 10 MG Tablet PO SCH (08:02)
[2018-07-24] MEDS: amLODIPine 10 MG Tablet PO SCH (08:03)
--- NOTE | 2018-07-24 11:09 | P.PNIM ---
Subjective Interval history: Patient is a 82-year-old gentleman who was recently in hospice. He was seen at the [place] emergency department after trip and fall last evening. Patient's friend states that he had down off the tile floor and from the patient's chair and when he got up he slipped and fell forward hitting his head on the floor denies any loss of consciousness patient reports neck pain but denies any new numbness or tingling or weakness of extremities. He had chronic numbness related to peripheral neuropathy. Also has history of Parkinson disease. Had a CT of the head which was negative for any intracranial injury and CAT scan of the cervical spine revealed a C1 posterior arch bilateral fracture as well as a C2 type II odontoid fracture with widening of the fracture line anteriorly patient has a cervical collar in place transferred to the main hospital for evaluation has been seen by neurosurgery as well as trauma surgery we have now been consulted to help with medical management and to assume care of appears We will follow the patient throughout the admission for any other issues that may arise Patient is scheduled to have surgery tomorrow with neurosurgery Dr. Currie 07-24 to go for surgery later today remains in collar needs sinemet clarified AM LABS DW RN Physical Exam Vital signs: Vital Signs 07/23/18 12:00 07/23/18 16:00 07/23/18 20:00 Temperature 98.0 F 98.5 F 97.4 F L Pulse Rate 76 81 78 Respiratory Rate 15 13 15 Blood Pressure 131/63 141/68 H 151/72 H Pulse Oximetry 96 96 96 07/24/18 00:00 07/24/18 04:00 07/24/18 08:00 Temperature 98.1 F 98 F 98.4 F Pulse Rate 69 66 73 Respiratory Rate 20 16 17 Blood Pressure 114/65 124/59 L 125/63 Pulse Oximetry 94 L 97 95 Intake & Output 07/23/18 07/24/18 07/24/18 18:59 06:59 18:59 Intake Total 100 / 100 1120 / 1120 Output Total 950 / 950 Balance 100 / 100 170 / 170 Weight 72.5 kg Intake: IV 100 / 100 1000 / 1000 NS Inj 1,000 ML @ 75 mls/hr IV. 1000 / 1000 CONT .[id number] [facility]ASU Rx#: [id number] Ofirmev Inj 1,000 mg In 100 ml 100 / 100 @ 400 mls/hr IV.SIG Q6H PRN Rx# :[id number] Oral 120 / 120 Output: Urine Amount (Catheter) 950 / 950 Coude 950 / 950 Narrative: GENERAL: Awake alert talkative and cooperative currently wearing a hard cervical collar appears to be a [place] J collar SKIN: Warm and dry. HEAD: Atraumatic. Normocephalic. EYES: Pupils equal and round. No scleral icterus. No injection or drainage. EOMI ENT: No nasal bleeding or discharge. Mucous membranes pink and moist. NECK: Trachea midline. No JVD. Hard collar in place [place] J CARDIOVASCULAR: Regular rate and rhythm. S1-S2 no S3 or S4 RESPIRATORY: No accessory muscle use. Clear to auscultation. Breath sounds equal bilaterally. GASTROINTESTINAL: Abdomen soft, non-tender, nondistended. Hepatic and splenic margins not palpable. MUSCULOSKELETAL: Extremities without clubbing, cyanosis, or edema. No obvious deformities. NEUROLOGICAL: Awake and alert. No obvious cranial nerve deficits. Motor grossly within normal limits. 4 out of 5 muscle strength in the arms and legs. Normal speech. PSYCHIATRIC: Appropriate mood and affect; insight and judgment ABnormal. - Urinary Catheter Management Coude Cath placed during this visit: yes Reason for continuing: Acute urinary retention Insertion date: 07/23/18 Insertion time: 01:42 Results - Labs CBC & Chem 7: 07/24/18 03:46 07/24/18 03:46 Laboratory Results - last 24 hr 07/23/18 07/24/18 07/24/18 18:26 03:46 03:46 WBC 7.8 RBC 4.52 Hgb 13.5 Hct 39.8 MCV 87.9 MCH 29.9 MCHC 34.1 RDW 14.2 Plt Count 225 MPV 7.9 Neut % (Auto) 71.7 H Lymph % (Auto) 17.0 [place] % (Auto) 7.3 Eos % (Auto) 3.1 Baso % (Auto) 0.9 Neut # (Auto) 5.6 Lymph # (Auto) 1.3 [place] # (Auto) 0.6 Eos # (Auto) 0.2 Baso # (Auto) 0.1 WBC Differential . Differential Comment Auto diff final Sodium 138 Potassium 4.0 Chloride 102 Carbon Dioxide 28.9 Anion Gap 7 BUN 15 Creatinine 0.71 Estimated GFR Greater than 89 Random Glucose 90 Calcium 8.7 Phosphorus 3.4 Magnesium 2.1 Total Bilirubin 0.5 AST 10 L ALT 7 L Alkaline Phosphatase 91 Total Protein 6.8 Albumin 3.6 TSH 1.210 Free T4 0.95 Urine Color Yellow Urine Clarity Clear Urine pH 7.0 Ur Specific [place] 1.014 Urine Protein Negative Urine Glucose (UA) Negative Urine Ketones Negative Urine Occult Blood Moderate H Urine Nitrate Negative Urine Bilirubin Negative Urine Urobilinogen Less than 2 Ur Leukocyte Esterase Trace H Urine RBC 24 H Urine WBC 8 H Urine Mucus Few H Micro UA Comment Culture not ind Ur Microscopic Review Not Reportable Urine Culture Comments Culture not ind - Imaging Impressions Cervical Spine MRI 07/23/18 00:00 CONCLUSION: 1. Fractures of the posterior arch of C1 and the dens unchanged from recent CT. No cord signal abnormalities to suggest contusion. No cord impingement. Moderate degenerative changes as above. Chest X-Ray 07/23/18 00:00 CONCLUSION: 1. Senescent changes and right apical pleural-parenchymal scarring. 2. No acute abnormality. Assessment and Plan - Plan Patient is an 82-year-old gentleman with Parkinson's disease found to have a C1 bilateral posterior arch and C2 type II odontoid fracture after a fall yesterday. See one fracture will likely heal with the collars but the type II odontoid fracture is unstable or require intervention with an anterior C2 odontoid screw placement. And/or Halo. Patient will undergo surgery tomorrow with neurosurgery Dr. Currie Pain control N.p.o. after midnight Status post fall Once patient has had surgery will need physical therapy and occupational therapy and possibly even speech therapy Chronic Parkinson's disease -Continue on his Sinemet carbidopalevodopa Chronic peripheral neuropathy Hypertension on amlodipine and benazepril hydrochlorothiazide Depression on citalopram Seasonal allergies continue on CERTIRIZINE A.m. labs Discussed with RN and patient FOR SURGERY LATER TODAY Code Status: DNR Discussed Condition With: VANDANA RN AND PT Discharge Planning: Once
--- NOTE | 2018-07-24 14:18 | OTSOAPIP ---
TIME SESSION COMPLETED: 1400 TREATMENT TIME: 0 MINS. CHART REVIEWED. ATTEMPTED TO SEE PATIENT HOWEVER PATIENT WAS NOT AVAILABLE SECONDARY TO BEING INVOLVED IN A SURGICAL PROCEDURE. PLAN: WILL SEE NEXT TREATMENT DAY Therapist: Lincoln Rasmussen Signature on file
[2018-07-24] MEDS ORDERED: HYDROmorphone PF Inj 2 MG/ML Vial ONE (15:09)
[2018-07-24] MEDS ORDERED: Propofol Inj 500 MG/50 ML Vial ONE (15:09)
[2018-07-24] MEDS ORDERED: Sugammadex Inj 200 MG/2 ML Vial IV.PUSH ONE (15:09)
--- NOTE | 2018-07-24 15:15 | ECG ---
Date Performed: 07/23/2018 Time Performed: 15:57:36 PTAGE: 82 years EKG: Sinus rhythm NORMAL ECG Since the PREVIOUS TRACING , no significant change noted PREVIOUS TRACIN12/25/2009 13.12 DOCTOR: Beronica Dunn Interpretating Date/Time 07/24/2018 15:10:28
--- NOTE | 2018-07-24 15:40 | P.PNCC ---
Subjective Brief History: 82-year-old gentleman who presented to [place] emergency room after a trip and a fall last evening. The patient's friend says that she had mopped the tile floor in front of the patient's chair, and when he got up he slipped and fell forward, hitting his head on the floor. No LOC, patient reports neck pain but denies any new numbness/ tingling/ weakness of extremities. He relates chronic numbness related to peripheral neuropathy. He also has Parkinson's disease. Workup included CT of the head was negative for any intracranial injury and CT of cervical spine reveals C1 posterior arch bilateral fracture as well as a C2 type II odontoid fracture with widening of the fracture line anteriorly. She is maintaining a cervical spinal precautions with a collar and transferred to [facility] for further management. Patient is known to have severe Parkinson's disease and is medicated appropriately. Patient will be admitted to ICU for further care Neurosurgery consult greatly appreciated Objective Vital Signs / I&O: Vital Signs 07/23/18 16:00 07/23/18 20:00 07/24/18 00:00 Temperature 98.5 F 97.4 F L 98.1 F Pulse Rate 81 78 69 Respiratory Rate 13 15 20 Blood Pressure 141/68 H 151/72 H 114/65 Pulse Oximetry 96 96 94 L 07/24/18 04:00 07/24/18 08:00 07/24/18 12:00 Temperature 98 F 98.4 F 97.6 F Pulse Rate 66 73 77 Respiratory Rate 16 17 14 Blood Pressure 124/59 L 125/63 139/64 Pulse Oximetry 97 95 96 07/24/18 13:29 07/24/18 13:45 07/24/18 14:00 Temperature 98.3 F Pulse Rate 75 71 69 Respiratory Rate 12 14 15 Blood Pressure 133/60 118/58 L 127/60 Pulse Oximetry 95 97 97 07/24/18 15:00 Temperature Pulse Rate 68 Respiratory Rate 17 Blood Pressure 130/61 Pulse Oximetry 96 Intake & Output 07/23/18 07/24/18 07/24/18 18:59 06:59 18:59 Intake Total 100 / 100 1120 / 1120 Output Total 950 / 950 Balance 100 / 100 170 / 170 Weight 72.5 kg Intake: IV 100 / 100 1000 / 1000 NS Inj 1,000 ML @ 75 mls/hr IV. 1000 / 1000 CONT .[id number] [facility]ASU Rx#: [id number] Ofirmev Inj 1,000 mg In 100 ml 100 / 100 @ 400 mls/hr IV.SIG Q6H PRN Rx# :[id number] Oral 120 / 120 Output: Urine Amount (Catheter) 950 / 950 Coude 950 / 950 Result Diagrams: 07/24/18 03:46 07/24/18 03:46 Imaging: Impressions Chest X-Ray 07/23/18 00:00 CONCLUSION: 1. Senescent changes and right apical pleural-parenchymal scarring. 2. No acute abnormality. Disinhibition Score: 14.00 Aggression Score: 14.00 Lability Score: 14.00 Agitated Behavior Total Score: 14 - Exam BULK RECEIVER: Patient is awake alert and oriented slightly somnolent but has not slept the whole night Neurologically he is fully intact For neurosurgical intervention C1-C2 today Hemodynamic/Cardiac: Hemodynamically stable Pulmonary/Respiratory: Bilateral breath sounds decreased over the both lung connell consistent with senile emphysema Loss of chest were musculature consistent with pulmonary cachexia and functional decline being a combination of COPD and severe Parkinson's disease Neurosurgery and medicine help greatly appreciated Abdomen/GI Nutrition: Abdomen soft patulous active bowel sounds no rebound guarding or trauma Renal/I&O: Renal function preserved Assessment and Plan Attestation: For neurosurgical fixation of C1 and C2 fracture today Patient's prognosis is very guarded considering his age and severe injury as well as comorbidities He may end up for prolonged time on the respirator Critical care time 34 minutes
[2018-07-24] MEDS ORDERED: Lidocaine PF 1% Inj 5 ML Syringe OTHER ONE (15:45)
[2018-07-24] MEDS ORDERED: Phenylephrine/NS 1000 MCG/10ML Syringe IV.PUSH ONE (15:45)
[2018-07-24] MEDS ORDERED: Glycopyrrolate Inj 1 MG/5 ML Syringe IV.PUSH ONE (15:45)
[2018-07-24 17:40] LABS: Hemoglobin A1c 5.9 % (4.3-6.0)
[2018-07-24] MEDS ORDERED: fentaNYL Citrate Inj 100 MCG/2 ML Ampul ONE (18:22)
--- NOTE | 2018-07-24 18:25 | P.OP ---
- Preoperative Diagnosis (1) Type II dens fracture of second cervical vertebra (2) C1 cervical fracture Date of procedure: 07/24/18 Procedure: Anterior cervical C2 odontoid screw placement Anesthesia: JERODA Surgeon: Ephraim Currie MD Sealing And Canceling Machine Operator: Juliane Bowers Estimated blood loss (mL): 10 Operation and Findings: Following administration of general endotracheal anesthesia with the neck maintained in a [place] J collar, the patient received a gram of vancomycin and Decadron 10 mg intravenously. Sequential compression devices were placed in supine position on a Gilberto table and all pressure points adequately padded. The head secured in a donut and anterior cervical region then shaved and prepped with Chloraprep and sterilely draped with Ioban along with the usual sterile draping. A longitudinal skin incision on the right side of the neck was then made after infiltrating the skin with 0.5% Marcaine with epinephrine solution extending down through the platysma. At the anterior border of the sternocleidomastoid further dissection was undertaken developing a plane between the carotid sheath laterally and the trachea esophagus medially. The prevertebral fascia was exposed and dissected out. Using AP and lateral fluoroscopy the base of the anterior inferior C2 body was localized today with placement of the [employer] guide and subsequently a drill trajectory created extending through the C2 vertebral body into the tip of the dens crossing the fracture line. Subsequent lag screw 36 mm in length was then placed with position confirmed with AP and lateral fluoroscopy. The guide was then removed and muscular bleeding points were cauterized with bipolar cautery and Gelfoam was then also used for hemostasis which was removed. The platysma was then approximated using 3-0 Vicryl interrupted stitches and 3-0 Vicryl subcuticular stitch also placed in an interrupted fashion, and final skin closure was with Mastisol and Steri-Strips. Sterile dressing was then applied. The neck was then immobilized in a [place] J collar. The patient was then extubated and taken to the recovery room. There are no intraoperative complications and all sponge and needle counts were correct at the end of procedure. Estimated blood loss was about 10 cc. The patient did undergo intraoperative neurologic monitoring which remained stable throughout the surgery.
[2018-07-24] MEDS ORDERED: Magnesium Sulfate Inj 2 GM in Sodium Chlor 0.9% Inj 96 ML IV.SIG PRN (18:26)
[2018-07-24] MEDS ORDERED: Calcium Gluconate Inj 1 GM in Sodium Chlor 0.9% Inj 100 ML IV.SIG PRN (18:26)
[2018-07-24] MEDS ORDERED: Potassium Chlor 20 mEq Premix 20 MEQ/100 ML PIGGYBACK IV.SIG PRN (18:26)
[2018-07-24] MEDS ORDERED: Labetalol HCl Inj 100 MG/20 ML Vial IV.PUSH PRN (18:26)
[2018-07-24] MEDS ORDERED: Menthol 5.8 MG Lozenge BUCCAL PRN (18:26)
[2018-07-24] MEDS ORDERED: Morphine Sulfate Inj 2 MG/ML Vial IV.PUSH PRN (18:26)
[2018-07-24] MEDS ORDERED: Aluminum/Magnesium/Simethacone Susp 30 ML UDC PO PRN (18:26)
--- NOTE | 2018-07-24 18:53 | XR ---
EXAM DATE: 07/24/2018 12:00 AM EDT AGE/SEX: 82 years / Male INDICATIONS: Odontoid screw placement. CLINICAL DATA: This is the patient's subsequent encounter. Patient reports that signs and symptoms h ave been present for 1 day and indicates a pain score of Nonresponsive. MEDICAL/SURGICAL HISTORY: Non-responsive. Non-responsive. COMPARISON: No prior exams available for comparison. FINDINGS: AP and lateral views of the cervical spine reveal lack screw fixation. Dense fracture with near-anato bev alignment. Patient intubated. No complications identified. CONCLUSION: C2 fixation as above. Electronically signed by: Rickie Choudhury MD 07/24/2018 6:52 PM EDT
[2018-07-24] MEDS: Senna/Docusate Sodium 8.6/50 MG Tablet PO SCH (20:50)
[2018-07-25] MEDS: Chlorhexidine Gluconate 2% 1 Pack (2 Cloths) TOPICAL SCH (04:26)
[2018-07-25 04:36] LABS: Baso % (Auto) 0.1 % (0.0-2.0); Hematocrit 39.6 % (39.0-51.0); Hemoglobin 13.5 gm/dL (13.0-17.0); Lymph # (Auto) 0.3 th/mm3 (1.0-4.8); Lymph % (Auto) 4.1 % (9.0-44.0); Mean Corpuscular HGB Conc 34.1 % (32.0-36.0); Mean Corpuscular Hemoglobin 29.9 pg (27.0-34.0); Mean Corpuscular Volume 87.6 fL (80.0-100.0); Mean Platelet Volume 7.9 fL (7.0-11.0); Mono # (Auto) 0.1 th/mm3 (0.0-0.9); Mono % (Auto) 1.1 % (0.0-8.0); Neut # (Auto) 7.4 th/mm3 (1.8-7.7); Neut % (Auto) 94.7 % (16.0-70.0); Platelet Count 218 th/mm3 (150-450); Red Blood Count 4.52 mil/mm3 (4.50-5.90); Red Cell Distribution Width 14.1 % (11.6-17.2); White Blood Count 7.8 th/mm3 (4.0-11.0)
[2018-07-25 04:58] LABS: Albumin 3.4 g/dL (3.4-5.0); Anion Gap 10 meq/L (5-15); Aspartate Aminotransferase 13 U/L (15-37); Blood Urea Nitrogen 15 mg/dL (7-18); Calcium 8.2 mg/dL (8.5-10.1); Carbon Dioxide 28.1 meq/L (21.0-32.0); Chloride 99 meq/L (98-107); Glomerular Filtration Rate Greater Than 89 mL/min (>89); Glucose,Random 152 mg/dL (74-106); Magnesium 1.9 mg/dL (1.5-2.5); Potassium 4.7 meq/L (3.5-5.1); Sodium 137 meq/L (136-145)
[2018-07-25 04:59] LABS: Alanine Aminotransferase 7 U/L (12-78); Phosphorus 4.3 mg/dL (2.5-4.9)
[2018-07-25 05:01] LABS: Alkaline Phosphatase 87 U/L (45-117); Total Protein 6.9 g/dL (6.4-8.2)
[2018-07-25] MEDS: Pantoprazole Inj 40 MG Vial IV.PUSH SCH (06:17)
[2018-07-25] MEDS: Citalopram 20 MG Tablet PO SCH (08:08)
[2018-07-25] MEDS: Lisinopril 10 MG Tablet PO SCH (08:08)
[2018-07-25] MEDS: Senna/Docusate Sodium 8.6/50 MG Tablet PO SCH ×2 (08:09→21:10)
[2018-07-25] MEDS: amLODIPine 10 MG Tablet PO SCH (08:09)
[2018-07-25] MEDS: Sod Chloride 0.9% Inj 1,000 ML IV.CONT SCH ×3 (08:10→23:15)
--- NOTE | 2018-07-25 10:56 | P.PNIM ---
Subjective Interval history: Patient reports he is feeling okay. He denies any pain. Discussed with RN. Doing well postop. Physical Exam Vital signs: Vital Signs 07/24/18 12:00 07/24/18 13:29 07/24/18 13:45 Temperature 97.6 F 98.3 F Pulse Rate 77 75 71 Respiratory Rate 14 12 14 Blood Pressure 139/64 133/60 118/58 L Pulse Oximetry 96 95 97 07/24/18 14:00 07/24/18 15:00 07/24/18 18:10 Temperature 98.1 F Pulse Rate 69 68 92 H Respiratory Rate 15 17 8 L Blood Pressure 127/60 130/61 105/54 L Pulse Oximetry 97 96 96 07/24/18 18:15 07/24/18 18:20 07/24/18 18:30 Temperature Pulse Rate 99 H 100 H Respiratory Rate 14 15 Blood Pressure 110/52 L 124/64 Pulse Oximetry 97 98 98 07/24/18 18:45 07/24/18 19:00 07/24/18 19:15 Temperature Pulse Rate 98 H 95 H 99 H Respiratory Rate 16 15 15 Blood Pressure 108/54 L 109/58 L 112/59 L Pulse Oximetry 99 98 96 07/24/18 19:25 07/24/18 19:30 07/24/18 20:00 Temperature 98.6 F 98.4 F Pulse Rate 98 H 106 H Respiratory Rate 16 14 Blood Pressure 117/68 107/55 L Pulse Oximetry 97 97 95 07/24/18 21:32 07/25/18 00:00 07/25/18 04:00 Temperature 98.4 F 98.5 F Pulse Rate 88 86 Respiratory Rate 11 L 11 L Blood Pressure 102/59 L 119/54 L Pulse Oximetry 100 99 100 07/25/18 08:00 07/25/18 09:16 Temperature 98.4 F Pulse Rate 90 Respiratory Rate 16 Blood Pressure 123/65 Pulse Oximetry 99 97 Intake & Output 07/24/18 07/25/18 07/25/18 18:59 06:59 18:59 Intake Total 2500 / 2500 320 / 320 Output Total 210 / 210 1000 / 1000 Balance 2290 / 2290 -680 / -680 Weight 74 kg Intake: IV 1000 / 1000 200 / 200 NS Inj 1,000 ML @ 75 mls/hr IV. 1000 / 1000 CONT .[id number] [facility] Rx#: [id number] Ancef Inj 1,000 MG In NS Inj 200 / 200 100 ML @ 200 mls/hr IV.SIG Q8H [facility] Rx#:[id number] Oral 120 / 120 Anesthesia Amount 1500 / 1500 Output: Estimated Blood Loss 10 / 10 Urine Amount (Catheter) 200 / 200 1000 / 1000 Coude 200 / 200 850 / 850 Indwelling Urethral Catheter 150 / 150 Narrative: GENERAL: Elderly male, no acute distress. Cervical collar in place CARDIOVASCULAR: Regular rate and rhythm. S1-S2 no S3 or S4 RESPIRATORY: No accessory muscle use. Clear to auscultation. Breath sounds equal bilaterally. GASTROINTESTINAL: Abdomen soft, non-tender, nondistended. Hepatic and splenic margins not palpable. MUSCULOSKELETAL: Extremities without clubbing, cyanosis, or edema. No obvious deformities. NEUROLOGICAL: Awake and alert. No obvious cranial nerve deficits. Motor grossly within normal limits. 4 out of 5 muscle strength in the arms and legs bilaterally. Normal speech. - Urinary Catheter Management Coude Cath placed during this visit: yes Reason for continuing: Hourly intake/output Insertion date: 07/23/18 Insertion time: 01:42 Indwelling Urethral Catheter Cath placed during this visit: no Reason for continuing: Hourly intake/output Results - Labs CBC & Chem 7: 07/25/18 04:01 07/25/18 04:01 Laboratory Results - last 24 hr 07/24/18 07/25/18 07/25/18 03:46 04:01 04:01 WBC 7.8 RBC 4.52 Hgb 13.5 Hct 39.6 MCV 87.6 MCH 29.9 MCHC 34.1 RDW 14.1 Plt Count 218 MPV 7.9 Neut % (Auto) 94.7 H Lymph % (Auto) 4.1 L [place] % (Auto) 1.1 Eos % (Auto) 0.0 Baso % (Auto) 0.1 Neut # (Auto) 7.4 Lymph # (Auto) 0.3 L [place] # (Auto) 0.1 Eos # (Auto) 0.0 Baso # (Auto) 0.0 WBC Differential . Differential Comment Auto diff final Sodium 137 Potassium 4.7 Chloride 99 Carbon Dioxide 28.1 Anion Gap 10 BUN 15 Creatinine 0.80 Estimated GFR Greater than 89 Random Glucose 152 H Hemoglobin A1c 5.9 Calcium 8.2 L Phosphorus 4.3 Magnesium 1.9 Total Bilirubin 0.6 AST 13 L ALT 7 L Alkaline Phosphatase 87 Total Protein 6.9 Albumin 3.4 - Imaging Impressions Cervical Spine X-Ray 07/24/18 00:00 CONCLUSION: C2 fixation as above. Assessment and Plan - Plan 82-year-old male with Parkinson's disease admitted to the trauma service after traumatic fall where he sustained a C1 bilateral posterior arch fracture in the C2 odontoid fracture. C1 bilateral posterior arch and C2 type II odontoid fracture: -Neurosurgery following. Patient is status post anterior cervical C2 odontoid screw placement -Routine postoperative care per neurosurgery. - Early PT Chronic Parkinson's disease -Continue on his Sinemet carbidopalevodopa Chronic peripheral neuropathy: -Fall risk. PT Hypertension: on amlodipine and benazepril hydrochlorothiazide Depression: on citalopram Seasonal allergies continue on CERTIRIZINE Discussed with RN, patient and his son at bedside.
--- NOTE | 2018-07-25 11:13 | P.PNCC ---
Subjective Brief History: 82-year-old gentleman who presented to [place] emergency room after a trip and a fall last evening. The patient's friend says that she had mopped the tile floor in front of the patient's chair, and when he got up he slipped and fell forward, hitting his head on the floor. No LOC, patient reports neck pain but denies any new numbness/ tingling/ weakness of extremities. He relates chronic numbness related to peripheral neuropathy. He also has Parkinson's disease. Workup included CT of the head was negative for any intracranial injury and CT of cervical spine reveals C1 posterior arch bilateral fracture as well as a C2 type II odontoid fracture with widening of the fracture line anteriorly. She is maintaining a cervical spinal precautions with a collar and transferred to [facility] for further management. Patient is known to have severe Parkinson's disease and is medicated appropriately. Patient will be admitted to ICU for further care Neurosurgery consult greatly appreciated 07/25/2018 Patient is awake alert and oriented and status post C2 anterior screw placement Neurologically patient is intact Hemodynamically stable Bilateral breath sounds with good inspiratory effort Abdomen soft active bowel sounds and patient is started on a diet Restart levodopa / carbodopa i.e. Sinemet for Parkinson's disease Renal function preserved Patient will require aggressive physical therapy and should be referred to the [facility] rehab Consult Dr. Eller Objective Vital Signs / I&O: Vital Signs 07/24/18 12:00 07/24/18 13:29 07/24/18 13:45 Temperature 97.6 F 98.3 F Pulse Rate 77 75 71 Respiratory Rate 14 12 14 Blood Pressure 139/64 133/60 118/58 L Pulse Oximetry 96 95 97 07/24/18 14:00 07/24/18 15:00 07/24/18 18:10 Temperature 98.1 F Pulse Rate 69 68 92 H Respiratory Rate 15 17 8 L Blood Pressure 127/60 130/61 105/54 L Pulse Oximetry 97 96 96 07/24/18 18:15 07/24/18 18:20 07/24/18 18:30 Temperature Pulse Rate 99 H 100 H Respiratory Rate 14 15 Blood Pressure 110/52 L 124/64 Pulse Oximetry 97 98 98 07/24/18 18:45 07/24/18 19:00 07/24/18 19:15 Temperature Pulse Rate 98 H 95 H 99 H Respiratory Rate 16 15 15 Blood Pressure 108/54 L 109/58 L 112/59 L Pulse Oximetry 99 98 96 07/24/18 19:25 07/24/18 19:30 07/24/18 20:00 Temperature 98.6 F 98.4 F Pulse Rate 98 H 106 H Respiratory Rate 16 14 Blood Pressure 117/68 107/55 L Pulse Oximetry 97 97 95 07/24/18 21:32 07/25/18 00:00 07/25/18 04:00 Temperature 98.4 F 98.5 F Pulse Rate 88 86 Respiratory Rate 11 L 11 L Blood Pressure 102/59 L 119/54 L Pulse Oximetry 100 99 100 07/25/18 08:00 07/25/18 09:16 Temperature 98.4 F Pulse Rate 90 Respiratory Rate 16 Blood Pressure 123/65 Pulse Oximetry 99 97 Intake & Output 07/24/18 07/25/18 07/25/18 18:59 06:59 18:59 Intake Total 2500 / 2500 320 / 320 Output Total 210 / 210 1000 / 1000 Balance 2290 / 2290 -680 / -680 Weight 74 kg Intake: IV 1000 / 1000 200 / 200 NS Inj 1,000 ML @ 75 mls/hr IV. 1000 / 1000 CONT .[id number] [facility] Rx#: [id number] Ancef Inj 1,000 MG In NS Inj 200 / 200 100 ML @ 200 mls/hr IV.SIG Q8H [facility] Rx#:[id number] Oral 120 / 120 Anesthesia Amount 1500 / 1500 Output: Estimated Blood Loss 10 / 10 Urine Amount (Catheter) 200 / 200 1000 / 1000 Coude 200 / 200 850 / 850 Indwelling Urethral Catheter 150 / 150 Result Diagrams: 07/25/18 04:01 07/25/18 04:01 Imaging: Impressions Cervical Spine X-Ray 07/24/18 00:00 CONCLUSION: C2 fixation as above. Disinhibition Score: 14.00 Aggression Score: 14.00 Lability Score: 14.00 Agitated Behavior Total Score: 14 Assessment and Plan Attestation: Critical care 32 minutes
--- NOTE | 2018-07-25 16:18 | P.PNNS ---
Subjective Interval history: No acute events overnight. Physical Exam Vital signs: Vital Signs 07/24/18 18:10 07/24/18 18:15 07/24/18 18:20 Temperature 98.1 F Pulse Rate 92 H 99 H Respiratory Rate 8 L 14 Blood Pressure 105/54 L 110/52 L Pulse Oximetry 96 97 98 07/24/18 18:30 07/24/18 18:45 07/24/18 19:00 Temperature Pulse Rate 100 H 98 H 95 H Respiratory Rate 15 16 15 Blood Pressure 124/64 108/54 L 109/58 L Pulse Oximetry 98 99 98 07/24/18 19:15 07/24/18 19:25 07/24/18 19:30 Temperature 98.6 F Pulse Rate 99 H 98 H Respiratory Rate 15 16 Blood Pressure 112/59 L 117/68 Pulse Oximetry 96 97 97 07/24/18 20:00 07/24/18 21:32 07/25/18 00:00 Temperature 98.4 F 98.4 F Pulse Rate 106 H 88 Respiratory Rate 14 11 L Blood Pressure 107/55 L 102/59 L Pulse Oximetry 95 100 99 07/25/18 04:00 07/25/18 08:00 07/25/18 09:16 Temperature 98.5 F 98.4 F Pulse Rate 86 90 Respiratory Rate 11 L 16 Blood Pressure 119/54 L 123/65 Pulse Oximetry 100 99 97 07/25/18 12:00 Temperature 98.6 F Pulse Rate 86 Respiratory Rate 13 Blood Pressure 96/54 L Pulse Oximetry 100 Intake & Output 07/24/18 07/25/18 07/25/18 18:59 06:59 18:59 Intake Total 2600 / 2600 320 / 320 Output Total 210 / 210 1000 / 1000 Balance 2390 / 2390 -680 / -680 Weight 74 kg Intake: IV 1100 / 1100 200 / 200 NS Inj 1,000 ML @ 75 mls/hr IV. 1000 / 1000 CONT .[id number] [facility] Rx#: [id number] Ofirmev Inj 1,000 mg In 100 ml 100 / 100 @ 400 mls/hr IV.SIG Q6H PRN Rx# :[id number] Ancef Inj 1,000 MG In NS Inj 200 / 200 100 ML @ 200 mls/hr IV.SIG Q8H [facility] Rx#:[id number] Oral 120 / 120 Anesthesia Amount 1500 / 1500 Output: Estimated Blood Loss 10 / 10 Urine Amount (Catheter) 200 / 200 1000 / 1000 Coude 200 / 200 850 / 850 Indwelling Urethral Catheter 150 / 150 Narrative: Opens eyes spontaneously Alert and oriented to self, place Follows commands x4 Anti-gravity throughout Cervical collar in place Incision/dressing: clean, dry, intact - Urinary Catheter Management Coude Cath placed during this visit: yes Reason for continuing: Hourly intake/output Insertion date: 07/23/18 Insertion time: 01:42 Indwelling Urethral Catheter Cath placed during this visit: no Reason for continuing: Hourly intake/output Assessment and Plan - Plan 82 y/o male with Parkinson's disease, C1 arch fracture, C2 type 2 dens fracture s/p C2 odontoid screw by Dr. Currie on 07/24/18. Neurologically stable. Plan: Maintain cervical collar PT/OT Pain control
[2018-07-26] MEDS: Pantoprazole Inj 40 MG Vial IV.PUSH SCH (06:34)
[2018-07-26] MEDS: Chlorhexidine Gluconate 2% 1 Pack (2 Cloths) TOPICAL SCH (06:35)
--- NOTE | 2018-07-26 09:41 | P.PNIM ---
Subjective Interval history: Patient reports is feeling okay today. He denies any pain. Discussed with RN. Physical Exam Vital signs: Vital Signs 07/25/18 12:00 07/25/18 16:00 07/25/18 20:00 Temperature 98.6 F 98.5 F 98.1 F Pulse Rate 86 87 92 H Respiratory Rate 13 20 12 Blood Pressure 96/54 L 118/58 L 132/63 Pulse Oximetry 100 98 97 07/25/18 21:12 07/26/18 00:00 07/26/18 04:00 Temperature 98.4 F 97.7 F Pulse Rate 89 83 Respiratory Rate 16 18 Blood Pressure 129/60 146/84 H Pulse Oximetry 94 L 99 98 07/26/18 06:00 07/26/18 09:08 Temperature Pulse Rate 84 Respiratory Rate Blood Pressure Pulse Oximetry 95 Intake & Output 07/25/18 07/26/18 07/26/18 18:59 06:59 18:59 Intake Total 720 / 720 1360 / 1360 Output Total 600 / 600 1850 / 1850 Balance 120 / 120 -490 / -490 Weight 74.6 kg Intake: IV 1000 / 1000 NS Inj 1,000 ML @ 75 mls/hr IV. 1000 / 1000 CONT .[id number] [facility] Rx#: [id number] Oral 720 / 720 360 / 360 Output: Urine 1850 / 1850 Urine Amount (Catheter) 600 / 600 Coude 600 / 600 Other: # Voids 1 # Incontinent Voids 1 1 # Bowel Movements 0 0 Narrative: GENERAL: Elderly male, no acute distress. Cervical collar in place CARDIOVASCULAR: Regular rate and rhythm. S1-S2 no S3 or S4 RESPIRATORY: No accessory muscle use. Clear to auscultation. Breath sounds equal bilaterally. GASTROINTESTINAL: Abdomen soft, non-tender, nondistended. Hepatic and splenic margins not palpable. MUSCULOSKELETAL: Extremities without clubbing, cyanosis, or edema. No obvious deformities. NEUROLOGICAL: Awake and alert. No obvious cranial nerve deficits. Motor grossly within normal limits. 4 out of 5 muscle strength in the arms and legs bilaterally. Normal speech. - Urinary Catheter Management Coude Cath placed during this visit: yes Reason for continuing: Hourly intake/output Insertion date: 07/23/18 Insertion time: 01:42 Indwelling Urethral Catheter Cath placed during this visit: no Reason for continuing: Hourly intake/output Results - Labs CBC & Chem 7: 07/25/18 04:01 07/25/18 04:01 Assessment and Plan - Plan 82-year-old male with Parkinson's disease admitted to the trauma service after traumatic fall where he sustained a C1 bilateral posterior arch fracture in the C2 odontoid fracture. C1 bilateral posterior arch and C2 type II odontoid fracture: -Neurosurgery following. Patient is status post anterior cervical C2 odontoid screw placement -Routine postoperative care per neurosurgery. - Early PT Chronic Parkinson's disease -Continue on his Sinemet carbidopalevodopa. Discussed q 4 hours dosing with RN. Chronic peripheral neuropathy: -Fall risk. Continue PT Hypertension: on amlodipine and benazepril hydrochlorothiazide Depression: on citalopram Seasonal allergies continue on CERTIRIZINE Discussed with RN Patient appears to be medically stable. He needs rehabilitation.
[2018-07-26] MEDS: Enoxaparin Inj 40 MG/0.4 ML Syringe SQ SCH (10:37)
[2018-07-26] MEDS: Senna/Docusate Sodium 8.6/50 MG Tablet PO SCH ×2 (10:37→23:09)
[2018-07-26] MEDS: amLODIPine 10 MG Tablet PO SCH (10:38)
[2018-07-26] MEDS: Lisinopril 10 MG Tablet PO SCH (10:38)
[2018-07-26] MEDS: Citalopram 20 MG Tablet PO SCH (10:39)
--- NOTE | 2018-07-26 10:57 | P.PNNS ---
Subjective Interval history: No acute events overnight. Dysphagia. Physical Exam Vital signs: Vital Signs 07/25/18 12:00 07/25/18 16:00 07/25/18 20:00 Temperature 98.6 F 98.5 F 98.1 F Pulse Rate 86 87 92 H Respiratory Rate 13 20 12 Blood Pressure 96/54 L 118/58 L 132/63 Pulse Oximetry 100 98 97 07/25/18 21:12 07/26/18 00:00 07/26/18 04:00 Temperature 98.4 F 97.7 F Pulse Rate 89 83 Respiratory Rate 16 18 Blood Pressure 129/60 146/84 H Pulse Oximetry 94 L 99 98 07/26/18 06:00 07/26/18 09:08 Temperature Pulse Rate 84 Respiratory Rate Blood Pressure Pulse Oximetry 95 Intake & Output 07/25/18 07/26/18 07/26/18 18:59 06:59 18:59 Intake Total 720 / 720 1360 / 1360 Output Total 600 / 600 1850 / 1850 Balance 120 / 120 -490 / -490 Weight 74.6 kg Intake: IV 1000 / 1000 NS Inj 1,000 ML @ 75 mls/hr IV. 1000 / 1000 CONT .[id number] [facility] Rx#: [id number] Oral 720 / 720 360 / 360 Output: Urine 1850 / 1850 Urine Amount (Catheter) 600 / 600 Coude 600 / 600 Other: # Voids 1 # Incontinent Voids 1 1 # Bowel Movements 0 0 Narrative: Opens eyes spontaneously Alert and oriented to self, place Follows commands x4 Anti-gravity throughout Cervical collar in place Incision/dressing: clean, dry, intact - Urinary Catheter Management Coude Cath placed during this visit: yes Reason for continuing: Hourly intake/output Insertion date: 07/23/18 Insertion time: 01:42 Indwelling Urethral Catheter Cath placed during this visit: no Reason for continuing: Hourly intake/output Assessment and Plan - Plan 82 y/o male with Parkinson's disease, C1 arch fracture, C2 type 2 dens fracture s/p C2 odontoid screw by Dr. Currie on 07/24/18. Neurologically stable. 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 PT/OT Pain control
[2018-07-26] MEDS: Sod Chloride 0.9% Inj 1,000 ML IV.CONT SCH (11:12)
--- NOTE | 2018-07-26 11:18 | P.PNCC ---
Subjective Brief History: 82-year-old gentleman who presented to [place] emergency room after a trip and a fall last evening. The patient's friend says that she had mopped the tile floor in front of the patient's chair, and when he got up he slipped and fell forward, hitting his head on the floor. No LOC, patient reports neck pain but denies any new numbness/ tingling/ weakness of extremities. He relates chronic numbness related to peripheral neuropathy. He also has Parkinson's disease. Workup included CT of the head was negative for any intracranial injury and CT of cervical spine reveals C1 posterior arch bilateral fracture as well as a C2 type II odontoid fracture with widening of the fracture line anteriorly. She is maintaining a cervical spinal precautions with a collar and transferred to [facility] for further management. Patient is known to have severe Parkinson's disease and is medicated appropriately. Patient will be admitted to ICU for further care Neurosurgery consult greatly appreciated 07/25/2018 Patient is awake alert and oriented and status post C2 anterior screw placement Neurologically patient is intact Hemodynamically stable Bilateral breath sounds with good inspiratory effort Abdomen soft active bowel sounds and patient is started on a diet Restart levodopa / carbodopa i.e. Sinemet for Parkinson's disease Renal function preserved Patient will require aggressive physical therapy and [facility] be [facility] Consult Dr. Eller 07/09/2018 Nothing to add to care at this time Patient is neurologically intact awake alert and oriented Tolerates regular diet well Patient is ready to transfer to floor or to rehab unit which ever is available Aggressive physical and occupational therapy necessary Objective Vital Signs / I&O: Vital Signs 07/25/18 12:00 07/25/18 16:00 07/25/18 20:00 Temperature 98.6 F 98.5 F 98.1 F Pulse Rate 86 87 92 H Respiratory Rate 13 20 12 Blood Pressure 96/54 L 118/58 L 132/63 Pulse Oximetry 100 98 97 07/25/18 21:12 07/26/18 00:00 07/26/18 04:00 Temperature 98.4 F 97.7 F Pulse Rate 89 83 Respiratory Rate 16 18 Blood Pressure 129/60 146/84 H Pulse Oximetry 94 L 99 98 07/26/18 06:00 07/26/18 09:08 Temperature Pulse Rate 84 Respiratory Rate Blood Pressure Pulse Oximetry 95 Intake & Output 07/25/18 07/26/18 07/26/18 18:59 06:59 18:59 Intake Total 720 / 720 1360 / 1360 900 / 900 Output Total 600 / 600 1850 / 1850 Balance 120 / 120 -490 / -490 900 / 900 Weight 74.6 kg Intake: IV 1000 / 1000 900 / 900 NS Inj 1,000 ML @ 75 mls/hr IV. 1000 / 1000 900 / 900 CONT .[id number] [facility] Rx#: [id number] Oral 720 / 720 360 / 360 Output: Urine 1850 / 1850 Urine Amount (Catheter) 600 / 600 Coude 600 / 600 Other: # Voids 1 # Incontinent Voids 1 1 # Bowel Movements 0 0 Result Diagrams: 07/25/18 04:01 07/25/18 04:01 Disinhibition Score: 14.00 Aggression Score: 14.00 Lability Score: 14.00 Agitated Behavior Total Score: 14
--- NOTE | 2018-07-26 11:37 | P.PNIM ---
Physical Exam Vital signs: Vital Signs 07/25/18 12:00 07/25/18 16:00 07/25/18 20:00 Temperature 98.6 F 98.5 F 98.1 F Pulse Rate 86 87 92 H Respiratory Rate 13 20 12 Blood Pressure 96/54 L 118/58 L 132/63 Pulse Oximetry 100 98 97 07/25/18 21:12 07/26/18 00:00 07/26/18 04:00 Temperature 98.4 F 97.7 F Pulse Rate 89 83 Respiratory Rate 16 18 Blood Pressure 129/60 146/84 H Pulse Oximetry 94 L 99 98 07/26/18 06:00 07/26/18 09:08 Temperature Pulse Rate 84 Respiratory Rate Blood Pressure Pulse Oximetry 95 Intake & Output 07/25/18 07/26/18 07/26/18 18:59 06:59 18:59 Intake Total 720 / 720 1360 / 1360 900 / 900 Output Total 600 / 600 1850 / 1850 Balance 120 / 120 -490 / -490 900 / 900 Weight 74.6 kg Intake: IV 1000 / 1000 900 / 900 NS Inj 1,000 ML @ 75 mls/hr IV. 1000 / 1000 900 / 900 CONT .[id number] [facility] Rx#: [id number] Oral 720 / 720 360 / 360 Output: Urine 1850 / 1850 Urine Amount (Catheter) 600 / 600 Coude 600 / 600 Other: # Voids 1 # Incontinent Voids 1 1 # Bowel Movements 0 0 - Urinary Catheter Management Coude Cath placed during this visit: yes Reason for continuing: Hourly intake/output Insertion date: 07/23/18 Insertion time: 01:42 Indwelling Urethral Catheter Cath placed during this visit: no Reason for continuing: Hourly intake/output Results - Labs CBC & Chem 7: 07/25/18 04:01 07/25/18 04:01 Assessment and Plan - Plan 82-year-old male with Parkinson's disease admitted to the trauma service after traumatic fall where he sustained a C1 bilateral posterior arch fracture in the C2 odontoid fracture. C1 bilateral posterior arch and C2 type II odontoid fracture: -Neurosurgery following. Patient is status post anterior cervical C2 odontoid screw placement -Routine postoperative care per neurosurgery. - Early PT Chronic Parkinson's disease -Continue on his Sinemet carbidopalevodopa Chronic peripheral neuropathy: -Fall risk. PT Hypertension: on amlodipine and benazepril hydrochlorothiazide Depression: on citalopram Seasonal allergies continue on CERTIRIZINE Discussed with RN, patient and his son at bedside.
[2018-07-26] MEDS ORDERED: Digoxin Inj 500 MCG/2 ML Ampul IV.PUSH STA (20:39)
[2018-07-26] MEDS ORDERED: Sodium Chloride 0.9% 2 ML Flush PRN IV.FLUSH (20:44)
[2018-07-26] MEDS ORDERED: Sod Chloride 0.9% Inj 1,000 ML IV.SIG SCH (20:45)
[2018-07-26 21:57] LABS: Magnesium 1.9 mg/dL (1.5-2.5); Potassium 3.6 meq/L (3.5-5.1)
[2018-07-26] MEDS: Sodium Chloride 0.9% 2 ML Flush BID IV.FLUSH SCH (23:08)
[2018-07-26] MEDS ORDERED: Sodium Phosphate Inj 30 MMOL in Sodium Chlor 0.9% Inj 250 ML IV.SIG PRN (23:41)
[2018-07-26] MEDS ORDERED: Potassium Phosphate 500 MG Soluble Tablet PO PRN ×2 (23:41)
[2018-07-26] MEDS ORDERED: Potassium Chloride 25 MEQ Effervescent Tablet PO PRN (23:41)
[2018-07-26] MEDS ORDERED: Potassium Chlor 40 mEq Premix 40 MEQ/100 ML PIGGYBACK IV.SIG PRN ×2 (23:41)
[2018-07-26] MEDS ORDERED: Potassium Phosphate Inj 30 MMOL in Sodium Chlor 0.9% Inj 250 ML IV.SIG PRN (23:41)
[2018-07-26] MEDS ORDERED: Magnesium Sulfate Inj 4 GM in Sodium Chlor 0.9% Inj 92 ML IV.SIG PRN (23:41)
[2018-07-26] MEDS ORDERED: Magnesium Oxide 400 MG Tablet PO PRN (23:41)
[2018-07-26] MEDS ORDERED: Potassium Chlor 20 mEq Premix 20 MEQ/100 ML PIGGYBACK IV.SIG PRN ×2 (23:41)
[2018-07-26] MEDS ORDERED: Magnesium Sulfate Inj 2 GM in Sodium Chlor 0.9% Inj 96 ML IV.SIG PRN (23:41)
[2018-07-27] MEDS ORDERED: Digoxin Inj 500 MCG/2 ML Ampul IV.PUSH ONE ×2 (02:45→09:00)
[2018-07-27 05:31] LABS: Baso # (Auto) 0.1 th/mm3 (0.0-0.2); Baso % (Auto) 0.8 % (0.0-2.0); Eos # (Auto) 0.4 th/mm3 (0.0-0.4); Eos % (Auto) 4.3 % (0.0-4.0); Hematocrit 41.1 % (39.0-51.0); Hemoglobin 13.8 gm/dL (13.0-17.0); Lymph # (Auto) 1.4 th/mm3 (1.0-4.8); Lymph % (Auto) 14.3 % (9.0-44.0); Mean Corpuscular HGB Conc 33.6 % (32.0-36.0); Mean Corpuscular Hemoglobin 29.8 pg (27.0-34.0); Mean Corpuscular Volume 88.8 fL (80.0-100.0); Mean Platelet Volume 8.1 fL (7.0-11.0); Mono # (Auto) 0.8 th/mm3 (0.0-0.9); Mono % (Auto) 7.8 % (0.0-8.0); Neut # (Auto) 7.1 th/mm3 (1.8-7.7); Neut % (Auto) 72.8 % (16.0-70.0); Platelet Count 237 th/mm3 (150-450); Red Blood Count 4.62 mil/mm3 (4.50-5.90); Red Cell Distribution Width 14.1 % (11.6-17.2); White Blood Count 9.7 th/mm3 (4.0-11.0)
[2018-07-27 05:52] LABS: Alanine Aminotransferase 11 U/L (12-78); Albumin 3.3 g/dL (3.4-5.0); Anion Gap 7 meq/L (5-15); Aspartate Aminotransferase 27 U/L (15-37); Blood Urea Nitrogen 17 mg/dL (7-18); Calcium 9.1 mg/dL (8.5-10.1); Carbon Dioxide 30.8 meq/L (21.0-32.0); Chloride 102 meq/L (98-107); Glomerular Filtration Rate Greater Than 89 mL/min (>89); Glucose,Random 86 mg/dL (74-106); Sodium 140 meq/L (136-145)
[2018-07-27 06:05] LABS: Alkaline Phosphatase 81 U/L (45-117); Total Protein 6.6 g/dL (6.4-8.2)
[2018-07-27] MEDS: Chlorhexidine Gluconate 2% 1 Pack (2 Cloths) TOPICAL SCH (08:09)
[2018-07-27] MEDS: Enoxaparin Inj 40 MG/0.4 ML Syringe SQ SCH (09:44)
[2018-07-27] MEDS: Pantoprazole Inj 40 MG Vial IV.PUSH SCH (09:44)
[2018-07-27] MEDS: Citalopram 20 MG Tablet PO SCH (09:45)
[2018-07-27] MEDS: Lisinopril 10 MG Tablet PO SCH (09:45)
[2018-07-27] MEDS: Dextrose 5%/Lactated Ringer's 1,000 ML IV.CONT SCH (09:46)
[2018-07-27] MEDS: Senna/Docusate Sodium 8.6/50 MG Tablet PO SCH ×2 (09:46→21:32)
[2018-07-27] MEDS: Sodium Chloride 0.9% 2 ML Flush BID IV.FLUSH SCH ×2 (09:50→21:32)
--- NOTE | 2018-07-27 10:43 | P.PNNS ---
Subjective Interval history: No events overnight Physical Exam Vital signs: Vital Signs 07/26/18 12:00 07/26/18 16:00 07/26/18 20:00 Temperature 98.4 F 97.7 F 98.2 F Pulse Rate 76 72 95 H Respiratory Rate 15 16 17 Blood Pressure 109/55 L 146/64 H 107/52 L Pulse Oximetry 100 98 07/26/18 20:45 07/26/18 22:00 07/27/18 00:00 Temperature 98 F Pulse Rate 164 H 102 H 142 H Respiratory Rate 20 Blood Pressure 96/82 L Pulse Oximetry 07/27/18 02:00 07/27/18 04:00 07/27/18 06:00 Temperature 98.3 F Pulse Rate 152 H 76 76 Respiratory Rate 14 Blood Pressure 120/57 L Pulse Oximetry 07/27/18 08:00 07/27/18 08:12 07/27/18 09:17 Temperature 98.1 F Pulse Rate 71 Respiratory Rate 17 Blood Pressure 130/57 L Pulse Oximetry 96 94 L 99 07/27/18 10:00 Temperature Pulse Rate 80 Respiratory Rate Blood Pressure Pulse Oximetry Intake & Output 07/26/18 07/27/18 07/27/18 18:59 06:59 18:59 Intake Total 1200 / 1200 690 / 690 1000 / 1000 Output Total 600 / 600 1510 / 1510 Balance 600 / 600 -820 / -820 1000 / 1000 Weight 73.6 kg Intake: IV 900 / 900 450 / 450 1000 / 1000 Cordarone Inj 450 MG In D5W Inj 250 / 250 241 ML @ 1 MG/MIN 33.33 mls/hr IV.CONT TITRATE PRN Rx#: [id number] NS Inj 1,000 ML @ 75 mls/hr IV. 900 / 900 CONT .[id number] [facility] Rx#: [id number] Magnesium Sulfate Inj 2 GM In 200 / 200 NS Inj 96 ML @ 50 mls/hr IV.SIG UNSCH PRN Rx#:[id number] NS Inj 1,000 ML @ 60 mls/hr IV. 1000 / 1000 SIG .[id number] [facility] Rx#:[id number] Oral 300 / 300 240 / 240 Output: Urine 900 / 900 Estimated Blood Loss 10 / 10 Urine Amount (Catheter) 600 / 600 600 / 600 Coude 600 / 600 Indwelling Urethral Catheter 600 / 600 Other: # Incontinent Voids 1 # Bowel Movements 0 Narrative: Narrative: Opens eyes spontaneously Alert and oriented to self, place Follows commands x4 Anti-gravity throughout Cervical collar in place Incision/dressing: clean, dry, intact - Urinary Catheter Management Coude Cath placed during this visit: yes Reason for continuing: Hourly intake/output Insertion date: 07/23/18 Insertion time: 01:42 Indwelling Urethral Catheter Cath placed during this visit: no Reason for continuing: Hourly intake/output Assessment and Plan - Plan 82 y/o male with Parkinson's disease, C1 arch fracture, C2 type 2 dens fracture s/p C2 odontoid screw by Dr. Currie on 07/24/18. Neurologically stable. 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 PT/OT Pain control
--- NOTE | 2018-07-27 15:41 | P.PNCC ---
Subjective Brief History: 82-year-old gentleman who presented to [place] emergency room after a trip and a fall last evening. The patient's friend says that she had mopped the tile floor in front of the patient's chair, and when he got up he slipped and fell forward, hitting his head on the floor. No LOC, patient reports neck pain but denies any new numbness/ tingling/ weakness of extremities. He relates chronic numbness related to peripheral neuropathy. He also has Parkinson's disease. Workup included CT of the head was negative for any intracranial injury and CT of cervical spine reveals C1 posterior arch bilateral fracture as well as a C2 type II odontoid fracture with widening of the fracture line anteriorly. She is maintaining a cervical spinal precautions with a collar and transferred to [facility] for further management. Patient is known to have severe Parkinson's disease and is medicated appropriately. Patient will be admitted to ICU for further care Neurosurgery consult greatly appreciated 07/25/2018 Patient is awake alert and oriented and status post C2 anterior screw placement Neurologically patient is intact Hemodynamically stable Bilateral breath sounds with good inspiratory effort Abdomen soft active bowel sounds and patient is started on a diet Restart levodopa / carbodopa i.e. Sinemet for Parkinson's disease Renal function preserved Patient will require aggressive physical therapy and should be referred to the [facility] rehab Consult Dr. Eller 07/09/2018 Nothing to add to care at this time Patient is neurologically intact awake alert and oriented Tolerates regular diet well Patient is ready to transfer to floor or to rehab unit which ever is available Aggressive physical and occupational therapy necessary 24 Hour Review/Hospital Course: 07/27 Patient Ewelina gray last night Has been started on amiodarone and digoxin with his rate control was achieved His magnesium and potassium are within normal limits an EKG and troponin will be obtained I will consult cardiology echocardiogram will be ordered Patient will be maintained on IV fluids as he is felt he is speech assessment today he has dysphasia combination of postop dysphagia on his C1 fracture in an elderly patient and also Parkinson With this findings we will proceed with a Dobbhoff insertion to continue tube feeds and his oral medications I believe it would be advisable to obtain a GI consult for PEG after discussion with the Objective Vital Signs / I&O: Vital Signs 07/26/18 16:00 07/26/18 20:00 07/26/18 20:45 Temperature 97.7 F 98.2 F Pulse Rate 72 95 H 164 H Respiratory Rate 16 17 Blood Pressure 146/64 H 107/52 L Pulse Oximetry 100 98 07/26/18 22:00 07/27/18 00:00 07/27/18 02:00 Temperature 98 F Pulse Rate 102 H 142 H 152 H Respiratory Rate 20 Blood Pressure 96/82 L Pulse Oximetry 07/27/18 04:00 07/27/18 06:00 07/27/18 08:00 Temperature 98.3 F 98.1 F Pulse Rate 76 76 71 Respiratory Rate 14 17 Blood Pressure 120/57 L 130/57 L Pulse Oximetry 96 07/27/18 08:12 07/27/18 09:17 07/27/18 10:00 Temperature Pulse Rate 80 Respiratory Rate Blood Pressure Pulse Oximetry 94 L 99 07/27/18 12:00 07/27/18 14:00 Temperature 98.1 F Pulse Rate 71 69 Respiratory Rate 16 Blood Pressure 115/58 L Pulse Oximetry 99 Intake & Output 07/26/18 07/27/18 07/27/18 18:59 06:59 18:59 Intake Total 1200 / 1200 690 / 690 1000 / 1000 Output Total 600 / 600 1510 / 1510 Balance 600 / 600 -820 / -820 1000 / 1000 Weight 73.6 kg Intake: IV 900 / 900 450 / 450 1000 / 1000 Cordarone Inj 450 MG In D5W Inj 250 / 250 241 ML @ 1 MG/MIN 33.33 mls/hr IV.CONT TITRATE PRN Rx#: [id number] NS Inj 1,000 ML @ 75 mls/hr IV. 900 / 900 CONT .[id number] VASU Rx#: [id number] Magnesium Sulfate Inj 2 GM In 200 / 200 NS Inj 96 ML @ 50 mls/hr IV.SIG UNSCH PRN Rx#:[id number] NS Inj 1,000 ML @ 60 mls/hr IV. 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 Renal/I&O: Adequate urine output well-hydrated Assessment and Plan Plan: Iliac workup for A. fib Continue pain control Continue hydration Obtain GI consult tomorrow discussion with patient for PEG In the meantime is dobhoff l for feeding
--- NOTE | 2018-07-27 16:11 | MB ---
cc: Omar Bains MD DATE: 07/27/2018 HISTORY OF PRESENT ILLNESS: Reza is a very pleasant 82-year-old gentleman who had a fall, status post multiple trauma to his cervical spine, status post surgery. He has a history of dementia. He went into atrial fibrillation today per the nursing staff. He was treated with IV digoxin. Currently in normal sinus rhythm with no acute distress with a neck collar in place, getting an echocardiogram done. He otherwise denies any fever, chills, cough, GI or bleeding, PND, orthopnea, syncope or dizziness. PAST MEDICAL HISTORY: As per history of present illness, the patient came into the emergency room on 07/22/2018 with a chief complaint of a head injury after he slipped on the floor. Past medical history includes hypertension, Parkinson's disease, hernia repair. SOCIAL HISTORY: Denies tobacco use. Denies alcohol use. ALLERGIES: 1. SIMVASTATIN 2. HALOPERIDOL. 3. PROCHLORPERAZINE. HOME MEDICATIONS: 1. Albuterol. 2. Amiodarone IV. 3. Aspirin 81 mg a day. 4. Carbidopa/levodopa. 5. Lovenox 40 subcutaneously daily. 6. HCTZ 12.5 daily. 7. Lisinopril 10 mg daily. 8. Magnesium supplementation. 9. Pantoprazole 40 mg IV q.24 hours. 10. Potassium supplementation. 11. IV digoxin. PHYSICAL EXAMINATION: VITAL SIGNS: Temperature 98.1, pulse 71 and normal sinus rhythm, blood pressure 115/58, respiratory rate 16. GENERAL: He is alert and oriented x2, in no acute distress. NECK: Collar in place. CARDIOVASCULAR: S1, S2. No murmurs, rubs or gallops auscultated bilaterally. ABDOMEN: Soft, nontender, nondistended, positive bowel sounds. EXTREMITIES: Lower extremity edema. DIAGNOSTIC STUDIES: Cervical spine CT 07/22/2018: Fracture of the dons at the level of the inferior arch of C1 with mild widening anterior but no posterior displacement fragment, fractures of the posterior arch of C1 on both the right and left side. Head CT 07/22/2018: No acute findings of the brain. Cervical spine MRI: Fractures of the posterior arch of C1 and dons, unchanged from recent CT. No cord signal abnormality to suggest contusion. No cord impingement. Moderate degenerative changes as above. Chest x-ray 07/23/2018: Senescent changes and right apical pleural parenchymal scarring, no acute abnormality. EKG 07/23/2019: Normal sinus rhythm at 76 beats per minute. CTA: Atherosclerotic disease of the carotid bulbs, but no evidence of significant carotid stenosis. Vertebral arteries are widely patent. No evidence of dissection. Cervical spine fracture flow described on cervical spine CT report. PROCEDURE: On 07/24/2018, patient underwent anterior cervical C2 odontoid screw placement by Dr. Ephraim Currie. LABORATORY DATA: White count 9.7, hemoglobin 13.8, hematocrit 41.1, platelet count 237. INR 1.1. Sodium 140, potassium 4.0, chloride 100, bicarbonate 3.8, BUN 17, creatinine 0.64. TSH 1.20. INR 1.1. DIAGNOSES: 1. Paroxysmal atrial fibrillation. 2. Fracture of the dons at the level of the inferior arch of C1 with mild widening anterior but no posterior displaced fragment, status post anterior cervical C2 odontoid screw placement. DISCUSSION: The patient is currently being treated with aspirin. He appears to be a fall risk. He has dementia and Parkinson's disease. I am not sure if he is an ideal candidate for anticoagulation for Coumadin or novel oral anticoagulant agent. His CHADS-VASc score is at least 3. Therefore, outside of any contraindication to Coumadin, novel oral anticoagulant agent is indicated. Would also need to determine from a neurosurgical standpoint would the patient be able to tolerate Coumadin or novel oral anticoagulant agent this close to surgery, which was done on 07/24/2018. We will need to discuss with Dr. Ephraim Currie. Otherwise, it is reasonable to use IV amiodarone. The patient started to receive digoxin IV. MD AMADOR Carroll/yamila , 02:41 PM , 02:52 PM
--- NOTE | 2018-07-27 16:26 | ECHRPT ---
Indication: CONCLUSIONS Normal left ventricular size. Wall thickness is normal. The left ventricular systolic function is normal with an estimated ejection fraction in the range of 55-60%. There is trace tricuspid valve regurgitation. The estimated pulmonary arterial pressure is 28 mmHg. The pulmonary valve is not well visualized. BP: / HR: Rhythm: Technical Quality:Technically difficult study FINDINGS LEFT VENTRICLE Normal left ventricular size. Wall thickness is normal. The left ventricular systolic function is normal with an estimated ejection fraction in the range of 55-60%. RIGHT VENTRICLE Normal right ventricular size and systolic function. LEFT ATRIUM The left atrial size is normal. RIGHT ATRIUM The right atrial size is normal. ATRIAL SEPTUM Normal atrial septal thickness without atrial level shunting by limited color doppler interrogation. AORTA The aortic root and proximal ascending aorta are normal in size on limited imaging. MITRAL VALVE Structurally normal mitral valve. No mitral valve stenosis or regurgitation. AORTIC VALVE Trileaflet aortic valve. TRICUSPID VALVE There is trace tricuspid valve regurgitation. The estimated pulmonary arterial pressure is 28 mmHg. PULMONARY VALVE The pulmonary valve is not well visualized. VESSELS The inferior vena cava is normal in size. PERICARDIUM No pericardial effusion. Omar Bains MD, FACC, FSCAI Edited by: branch office administrator branch office administrator (Electronically Signed) Final Date:27 July 2018 14:32 Amended: 27 July 2018 16:25
--- NOTE | 2018-07-27 16:31 | ECG ---
Date Performed: 07/27/2018 Time Performed: 09:40:36 PTAGE: 82 years EKG: Sinus rhythm NORMAL ECG PREVIOUS TRACING : 07/23/2018 15.57 Since the previous tracing, no significant change noted DOCTOR: Tasha Larry Interpretating Date/Time 07/27/2018 16:28:40
--- NOTE | 2018-07-27 16:46 | P.PNIM ---
Subjective Interval history: Patient does not appear to be in any acute distress. He is responding to my questions and commands appropriately. Case discussed with the patient's nurse Joelle at bedside. Physical Exam Vital signs: Vital Signs 07/26/18 20:00 07/26/18 20:45 07/26/18 22:00 Temperature 98.2 F Pulse Rate 95 H 164 H 102 H Respiratory Rate 17 Blood Pressure 107/52 L Pulse Oximetry 98 07/27/18 00:00 07/27/18 02:00 07/27/18 04:00 Temperature 98 F 98.3 F Pulse Rate 142 H 152 H 76 Respiratory Rate 20 14 Blood Pressure 96/82 L 120/57 L Pulse Oximetry 07/27/18 06:00 07/27/18 08:00 07/27/18 08:12 Temperature 98.1 F Pulse Rate 76 71 Respiratory Rate 17 Blood Pressure 130/57 L Pulse Oximetry 96 94 L 07/27/18 09:17 07/27/18 10:00 07/27/18 12:00 Temperature 98.1 F Pulse Rate 80 71 Respiratory Rate 16 Blood Pressure 115/58 L Pulse Oximetry 99 99 07/27/18 14:00 07/27/18 15:47 07/27/18 16:00 Temperature 98.3 F Pulse Rate 69 70 Respiratory Rate 16 Blood Pressure 131/60 Pulse Oximetry 99 99 Intake & Output 07/26/18 07/27/18 07/27/18 18:59 06:59 18:59 Intake Total 1200 / 1200 690 / 690 1000 / 1000 Output Total 600 / 600 1510 / 1510 Balance 600 / 600 -820 / -820 1000 / 1000 Weight 73.6 kg Intake: IV 900 / 900 450 / 450 1000 / 1000 Cordarone Inj 450 MG In D5W Inj 250 / 250 241 ML @ 1 MG/MIN 33.33 mls/hr IV.CONT TITRATE PRN Rx#: [id number] NS Inj 1,000 ML @ 75 mls/hr IV. 900 / 900 CONT .[id number] VASU Rx#: [id number] Magnesium Sulfate Inj 2 GM In 200 / 200 NS Inj 96 ML @ 50 mls/hr IV.SIG UNSCH PRN Rx#:[id number] NS Inj 1,000 ML @ 60 mls/hr IV. 1000 / 1000 SIG .[id number] [facility]AS[facility] Rx#:[id number] Oral 300 / 300 240 / 240 Output: Urine 900 / 900 Estimated Blood Loss Urine Amount (Catheter) 600 / 600 600 / 600 Coude 600 / 600 Indwelling Urethral Catheter 600 / 600 Other: # Incontinent Voids 1 # Bowel Movements 0 Narrative: General patient in no acute distress HEENT extraocular movements are intact, NG tube in place, nickel sized wound over the top of the patient's head scabbing over. C-collar in place. Cardiovascular S1-S2 audible, RRR, no murmurs rubs or gallops Respiratory clear to auscultation bilaterally Abdomen soft, nontender, nondistended, normal bowel sounds Extremities no edema 2+ distal pulses in bilateral upper and lower extremities Neuro patient can move all 4 extremities sensation is intact bilaterally - Urinary Catheter Management Coude Cath placed during this visit: yes Reason for continuing: Hourly intake/output Insertion date: 07/23/18 Insertion time: 01:42 Indwelling Urethral Catheter Cath placed during this visit: no Reason for continuing: Hourly intake/output Results - Labs CBC & Chem 7: 07/27/18 05:02 07/27/18 05:02 Laboratory Results - last 24 hr 07/26/18 07/27/18 07/27/18 21:00 05:02 05:02 WBC 9.7 RBC 4.62 Hgb 13.8 Hct 41.1 MCV 88.8 MCH 29.8 MCHC 33.6 RDW 14.1 Plt Count 237 MPV 8.1 Neut % (Auto) 72.8 H Lymph % (Auto) 14.3 [place] % (Auto) 7.8 Eos % (Auto) 4.3 H Baso % (Auto) 0.8 Neut # (Auto) 7.1 Lymph # (Auto) 1.4 [place] # (Auto) 0.8 Eos # (Auto) 0.4 Baso # (Auto) 0.1 WBC Differential . Differential Comment Auto diff final Sodium 140 Potassium 3.6 D 4.0 Chloride 102 Carbon Dioxide 30.8 Anion Gap 7 BUN 17 Creatinine 0.64 Estimated GFR Greater than 89 Random Glucose 86 Calcium 9.1 Magnesium 1.9 Total Bilirubin 0.7 AST 27 ALT 11 L Alkaline Phosphatase 81 Total Protein 6.6 Albumin 3.3 L 07/27/18 05:02 WBC RBC Hgb Hct MCV MCH MCHC RDW Plt Count MPV Neut % (Auto) Lymph % (Auto) [place] % (Auto) Eos % (Auto) Baso % (Auto) Neut # (Auto) Lymph # (Auto) [place] # (Auto) Eos # (Auto) Baso # (Auto) WBC Differential Differential Comment Sodium Potassium Chloride Carbon Dioxide Anion Gap BUN Creatinine Estimated GFR Random Glucose Calcium Magnesium 2.4 Total Bilirubin AST ALT Alkaline Phosphatase Total Protein Albumin Assessment and Plan - Plan 82-year-old male with Parkinson's disease admitted to the trauma service after traumatic fall where he sustained a C1 bilateral posterior arch fracture in the C2 odontoid fracture. The patient was under the care of neurosurgery as well as the trauma service. This morning he was found to have what appears to be atrial flutter with rapid ventricular rate. Atrial flutter Heart rate is currently under control. The patient is now in normal sinus rhythm. The patient was given 2 doses of digoxin and was started on an amiodarone drip. Cardiology was consulted. Will follow up with recommendations from cardiology. Patient will be started on a beta-isi. TSH is ordered. Twelve-lead EKG shows normal sinus rhythm no acute ST segment or T wave changes. The patient is asymptomatic no complaints of chest pain or palpitations. Continue to monitor electrolytes. Basic metabolic panel ordered for tomorrow a.m. C1 bilateral posterior arch and C2 type II odontoid fracture: Neurosurgery following. Patient is status post anterior cervical C2 odontoid screw placement Routine postoperative care per neurosurgery. C-collar in place. Early PT Chronic Parkinson's disease Continue on his Sinemet carbidopalevodopa. Continue current management. Patient has worsening dysphagia. We will continue to monitor the patient however he may require a PEG tube placement given his history of progressively worsening dysphagia. Continue current feeds through the NG tube. Chronic peripheral neuropathy: Fall risk. Continue PT Hypertension on amlodipine, benazepril hydrochlorothiazide. Depression on citalopram
[2018-07-27] MEDS ORDERED: Amiodarone Inj 450 MG in Sodium Chlor 0.9% Inj 241 ML IV.CONT PRN (19:30)
[2018-07-27 20:00] LABS: Magnesium 2.1 mg/dL (1.5-2.5)
[2018-07-27 20:03] LABS: Creatine Kinase 229 U/L (39-308)
[2018-07-27 20:15] LABS: Creatine Kinase MB 5.4 ng/mL (0.5-3.6)
[2018-07-27] MEDS: Metoprolol Tartrate 25 MG Tablet PO SCH (21:30)
--- NOTE | 2018-07-27 22:33 | XR ---
EXAM DATE: 07/27/2018 9:54 PM EDT AGE/SEX: 82 years / Male INDICATIONS: Dobhoff placement CLINICAL DATA: This is the patient's initial encounter. Patient reports that signs and symptoms have been present for 4 - 6 days and indicates a pain score of Nonresponsive. MEDICAL/SURGICAL HISTORY: . Hypertension. Parkinson's disease. None. COMPARISON: No prior exams available for comparison. FINDINGS: Dobbhoff feeding tube has its tip in the mid body of the stomach, slightly left of midline. Visualize d bowel gas pattern is nonobstructive. CONCLUSION: Dobbhoff feeding tube tip is in the mid stomach. Electronically signed by: Christiano Win MD 07/27/2018 10:31 PM EDT
[2018-07-28] MEDS: Dextrose 5%/Lactated Ringer's 1,000 ML IV.CONT SCH ×2 (04:07→20:38)
[2018-07-28 05:33] LABS: Anion Gap 7 meq/L (5-15); Blood Urea Nitrogen 18 mg/dL (7-18); Calcium 8.4 mg/dL (8.5-10.1); Carbon Dioxide 32.7 meq/L (21.0-32.0); Chloride 100 meq/L (98-107); Glomerular Filtration Rate Greater Than 89 mL/min (>89); Glucose,Random 101 mg/dL (74-106); Potassium 3.8 meq/L (3.5-5.1); Sodium 140 meq/L (136-145)
[2018-07-28] MEDS: Pantoprazole Inj 40 MG Vial IV.PUSH SCH (06:45)
--- NOTE | 2018-07-28 09:21 | P.PNNS ---
Subjective Interval history: Made NPO yesterday by Speech Therapy Physical Exam Vital signs: Vital Signs 07/27/18 10:00 07/27/18 12:00 07/27/18 14:00 Temperature 98.1 F Pulse Rate 80 71 69 Respiratory Rate 16 Blood Pressure 115/58 L Pulse Oximetry 99 07/27/18 15:47 07/27/18 16:00 07/27/18 17:59 Temperature 98.3 F Pulse Rate 70 68 Respiratory Rate 16 Blood Pressure 131/60 Pulse Oximetry 99 99 07/27/18 20:00 07/27/18 22:00 07/28/18 00:00 Temperature 98 F 98.2 F Pulse Rate 68 68 64 Respiratory Rate 12 30 H Blood Pressure 136/63 137/62 Pulse Oximetry 100 100 07/28/18 02:00 07/28/18 04:00 07/28/18 06:00 Temperature 98.2 F Pulse Rate 76 66 64 Respiratory Rate 16 Blood Pressure 125/59 L Pulse Oximetry 100 07/28/18 08:04 Temperature Pulse Rate Respiratory Rate Blood Pressure Pulse Oximetry 100 Intake & Output 07/27/18 07/28/18 07/28/18 18:59 06:59 18:59 Intake Total 1250 / 1250 950 / 950 Output Total 300 / 300 275 / 275 Balance 950 / 950 675 / 675 Weight 70.7 kg Intake: IV 1000 / 1000 950 / 950 D5W/LR Inj 1,000 ML @ 60 mls/hr 950 / 950 IV.CONT .[id number] VASU Rx#: [id number] NS Inj 1,000 ML @ 60 mls/hr IV. 1000 / 1000 SIG .[id number] [facility]AS[facility] Rx#:[id number] Oral 250 / 250 Output: Urine 300 / 300 Urine Amount (Catheter) 275 / 275 Coude 275 / 275 Other: # Voids 1 Date of Last Bowel Movement 07/28/18 # Bowel Movements 1 Narrative: Opens eyes spontaneously Alert and oriented to self, place Follows commands x4 Anti-gravity throughout Cervical collar in place Incision/dressing: clean, dry, intact - Urinary Catheter Management Coude Cath placed during this visit: yes Reason for continuing: Hourly intake/output Insertion date: 07/23/18 Insertion time: 01:42 Indwelling Urethral Catheter Cath placed during this visit: no Reason for continuing: Hourly intake/output Assessment and Plan - Plan 82 y/o male with Parkinson's disease, C1 arch fracture, C2 type 2 dens fracture s/p C2 odontoid screw by Dr. Currie on 07/24/18. Neurologically stable. 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
[2018-07-28] MEDS: Metoprolol Tartrate 25 MG Tablet PO SCH ×2 (09:35→20:11)
[2018-07-28] MEDS: Senna/Docusate Sodium 8.6/50 MG Tablet PO SCH ×2 (09:35→20:12)
[2018-07-28] MEDS: Lisinopril 10 MG Tablet PO SCH (09:35)
[2018-07-28] MEDS: Citalopram 20 MG Tablet PO SCH (09:35)
[2018-07-28] MEDS: Enoxaparin Inj 40 MG/0.4 ML Syringe SQ SCH (09:36)
[2018-07-28] MEDS: Sodium Chloride 0.9% 2 ML Flush BID IV.FLUSH SCH ×2 (09:36→20:12)
--- NOTE | 2018-07-28 10:36 | P.CONGI ---
History of Present Illness Consult date: 07/28/18 Consult reason: PEG tube placement Chief complaint: C1 and C2 Fracture History of Present Illness: This is a 82-year-old male currently in the intensive care unit status post traumatic fall on 07/22/2018. Patient currently is being monitored with c- collar on and has noted fractures of C1 and C2. He has had a history and some complications during this hospital stay with atrial flutter and also has chronic Parkinson's disease as well as chronic peripheral neuropathy hypertension and depression. Gastroenterology was consulted to assist with long -term nutritional needs with percutaneous endoscopic gastric tube placement. Current labs show hemoglobin 13.8, PT/INR 1.1, bilirubin and LFTs are normal. Patient has Dobbhoff in place and clamped but has orders for Jevity 1.5 at 20 cc an hour goal rate 50 cc an hour. There is currently no family present and patient is unresponsive to any verbal stimuli but according to nurse does respond to painful stimuli. Current oxygen per nasal cannula at 1 L and no obvious shortness of breath. <Kay Villafuerte - Last Filed: 07/28/18 10:29> Review of Systems All other systems reviewed negative except as stated in HPI <Kay Villafuerte - Last Filed: 07/28/18 10:29> PMFSH - History History Provided By: Patient - Medical History Medical History: Medical History (Last Reviewed 07/28/18 @ 07:31 by Naomi Paz) Hypertension Neuropathy, peripheral Parkinson disease - Surgical History Surgical History: Surgical History (Last Reviewed 07/28/18 @ 07:31 by Naomi Paz) H/O hernia repair - Family History Family History: Family History (Last Reviewed 07/25/18 @ 17:08 by Lincoln Rasmussen) Other Family history of hypertension - Tobacco History Second Hand Smoke Exposure: No Tobacco Use In Past 30 Days: No Smoking Status: Former smoker Tobacco Type: Cigarettes - Alcohol History How Often Do You Have a Drink Containing Alcohol: Never - Substance Use History Substance History: No History of Abuse - Travel History History of Recent Travel: No Recent Travel in the [place] Within the Last 8 Weeks: No Recent Travel Out of the Country Within the Last 8 Weeks: No - Immunization History Tetanus Immunization: Unsure Hx Influenza Vaccine This Season: No <Kay Villafuerte - Last Filed: 07/28/18 10:29> - Medical History Medical History: Medical History (Last Reviewed 07/28/18 @ 07:31 by Naomi Paz) Hypertension Neuropathy, peripheral Parkinson disease - Surgical History Surgical History: Surgical History (Last Reviewed 07/28/18 @ 07:31 by Naomi Paz) H/O hernia repair - Family History Family History: Family History (Last Reviewed 07/25/18 @ 17:08 by Lincoln Rasmussen) Other Family history of hypertension <Jorge Melgoza - Last Filed: 07/28/18 19:08> Medications and Allergies Active Medications: Active Medications Hydrocodone Bitart/Acetaminophen ([place] 10/325) 1 tab PO Q4H PRN PRN Reason: Pain > 3 Last Admin: 07/24/18 20:49 Dose: 1 tab Al Hydrox/Mg Hydrox/Simethicone (Mag-Al Plus Susp Liq) 30 ml PO Q6H PRN PRN Reason: DYSPEPSIA Al Hydroxide/Mg Hydroxide (Milk Of Magnesia Liq) 30 ml PO Q12H [facility] Last Admin: 07/28/18 09:36 Dose: 30 ml Albuterol (Duoneb Neb (Prn)) 1 ampul NEB Q2HR NEB PRN PRN Reason: SHORTNESS OF BREATH Aspirin (Ecotrin) 81 mg PO DAILY [facility] Last Admin: 07/28/18 09:36 Dose: 81 mg Bisacodyl (Dulcolax Supp) 10 mg RECTAL DAILY PRN PRN Reason: constipation Carbidopa/Levodopa (Sinemet 25/100 Mg) 1 tab PO BID@1200,1600 [facility] Last Admin: 07/27/18 16:37 Dose: 1 tab Carbidopa/Levodopa (Sinemet 25/100 Mg) 2 tab PO BID@0800,2000 [facility] Last Admin: 07/28/18 09:34 Dose: 2 tab Cetirizine HCl (Zyrtec) 10 mg PO HS [facility] Last Admin: 07/27/18 21:32 Dose: 10 mg Citalopram Hydrobromide (Celexa) 10 mg PO DAILY [facility] Last Admin: 07/28/18 09:35 Dose: 10 mg Clonidine HCl (Catapres) 0.1 mg PO Q6H PRN PRN Reason: HYPERTENSION Enalaprilat (Vasotec Inj) 1.25 mg IV.PUSH Q6H PRN PRN Reason: SBP>180, DBP>95 Enoxaparin Sodium (Lovenox Inj) 40 mg SQ DAILY [facility] Last Admin: 07/28/18 09:36 Dose: 40 mg Hydrochlorothiazide (Microzide) 12.5 mg PO DAILY [facility] Last Admin: 07/28/18 09:35 Dose: 12.5 mg Acetaminophen (Ofirmev Inj) 1,000 mg in 100 mls @ 400 mls/hr IV.SIG Q6H PRN PRN Reason: PAIN SCALE 1 TO 10 Last Admin: 07/25/18 14:04 Dose: 400 mls/hr Magnesium Sulfate 2 gm/ Sodium (Chloride) 100 mls @ 100 mls/hr IV.SIG UNSCH PRN PRN Reason: MAGNESIUM LESS THAN 2 Last Infusion: 07/27/18 02:04 Dose: Infused Potassium Chloride (Kcl 20 Meq Premix Inj) 20 meq in 100 mls @ 50 mls/hr IV.SIG UNSCH PRN PRN Reason: POTASSIUM LESS THAN 4 Calcium Gluconate 1 gm/ Sodium (Chloride) 110 mls @ 110 mls/hr IV.SIG UNSCH PRN PRN Reason: SEE LABEL COMMENTS Amiodarone HCl 450 mg/ (Dextrose) 250 mls @ 33.33 mls/hr IV.CONT TITRATE PRN; Protocol PRN Reason: Per Protocol Last Admin: 07/27/18 07:30 Dose: 0.5 mg/min, 16.66 mls/hr Magnesium Sulfate 2 gm/ Sodium (Chloride) 100 mls @ 50 mls/hr IV.SIG UNSCH PRN PRN Reason: For Magnesium 1.2 - 1.6 mg/dL Last Infusion: 07/27/18 02:25 Dose: Infused Potassium Chloride (Kcl 40 Meq Premix Inj) 40 meq in 100 mls @ 25 mls/hr IV.SIG Q2H PRN PRN Reason: For Potassium 2.8 - 3.2 mEq/L Potassium Chloride (Kcl 20 Meq Premix Inj) 20 meq in 100 mls @ 50 mls/hr IV.SIG Q2H PRN PRN Reason: For Potassium 3.3 - 3.5 mEq/L Potassium Chloride (Kcl 40 Meq Premix Inj) 40 meq in 100 mls @ 25 mls/hr IV.SIG UNSCH PRN PRN Reason: For Potassium 3.3 - 3.5 mEq/L Potassium Chloride (Kcl 20 Meq Premix Inj) 20 meq in 100 mls @ 50 mls/hr IV.SIG Q2H PRN PRN Reason: For Potassium 2.8 - 3.2 mEq/L Potassium Phosphate 30 mmol/ (Sodium Chloride) 260 mls @ 42 mls/hr IV.SIG UNSCH PRN PRN Reason: SEE LABEL COMMENTS Sodium Phosphate 30 mmol/ (Sodium Chloride) 260 mls @ 42 mls/hr IV.SIG UNSCH PRN PRN Reason: For Phosphorus < 2.5 mg/dL Magnesium Sulfate 4 gm/ Sodium (Chloride) 100 mls @ 50 mls/hr IV.SIG UNSCH PRN PRN Reason: For Magnesium 0.9 - 1.1 mg/dL Dextrose/Lactated Ringer's (D5w/Lr Inj) 1,000 mls @ 60 mls/hr IV.CONT .[id number] [facility] Last Admin: 07/28/18 04:07 Dose: 60 mls/hr Amiodarone HCl 450 mg/ Sodium (Chloride) 250 mls @ 33.33 mls/hr IV.CONT TITRATE PRN; Protocol PRN Reason: Per Protocol Last Admin: 07/27/18 21:12 Dose: 1 mg/min, 33.33 mls/hr Cefazolin Sodium 1,000 mg/ (Sodium Chloride) 100 mls @ 200 mls/hr IV.SIG GUIDANCE SERVICES COORDINATOR [facility] Stop: 07/31/18 09:44 Labetalol HCl (Trandate Inj) 10 mg IV.PUSH Q1H PRN PRN Reason: SYS BP GREATER THAN 170 MMHG Lactulose (Lactulose Liq) 30 ml PO DAILY PRN PRN Reason: SEVERE CONSITIPATION Lisinopril (Prinivil) 10 mg PO DAILY [facility] Last Admin: 07/28/18 09:35 Dose: 10 mg Magnesium Oxide (Mag-Ox) 800 mg PO UNSCH PRN PRN Reason: For Magnesium 1.2 - 1.6 mg/dL Menthol ([place]) 1 lozenge BUCCAL UNSCH PRN PRN Reason: SORE THROAT Metoprolol Tartrate (Lopressor) 12.5 mg PO BID [facility] Last Admin: 07/28/18 09:35 Dose: 12.5 mg Miscellaneous (Pill Splitter) 1 [facility] Morphine Sulfate (Morphine Inj) 2 mg IV.PUSH Q2H PRN PRN Reason: breakthrough pain Ondansetron HCl (Zofran Inj) 4 mg IV.PUSH Q6H PRN PRN Reason: NAUSEA OR VOMITING Pantoprazole Sodium (Protonix Inj) 40 mg IV.PUSH Q24H [facility] Last Admin: 07/28/18 06:45 Dose: 40 mg Potassium Bicarb/Potassium Chloride (K-Lyte Cl Eff) 50 meq PO UNSCH PRN PRN Reason: For Potassium 3.3 - 3.5 mEq/L Potassium Phosphate (K-Phos Original) 2,000 mg PO Q4H PRN PRN Reason: Phosphorus Less Than 2.5 mg/dL Potassium Phosphate (K-Phos Original) 2,000 mg PO UNSCH PRN PRN Reason: SEE LABEL COMMENTS Senna/Docusate Sodium (Johanny-Colace) 1 tab PO BID [facility] Last Admin: 07/28/18 09:35 Dose: 1 tab Sennosides (Senokot) 17.2 mg PO Q12H PRN PRN Reason: Moderate Constipation Sodium Chloride (Ns Flush) 2 ml IV.FLUSH BID [facility] Last Admin: 07/28/18 09:36 Dose: 2 ml Sodium Chloride (Ns Flush) 2 ml IV.FLUSH PRN PRN PRN Reason: FLUSH AFTER USING IV ACCESS <Kay Villafuerte - Last Filed: 07/28/18 10:29> Active Medications: Active Medications Hydrocodone Bitart/Acetaminophen ([place] 10/325) 1 tab PO Q4H PRN PRN Reason: Pain > 3 Last Admin: 07/24/18 20:49 Dose: 1 tab Al Hydrox/Mg Hydrox/Simethicone (Mag-Al Plus Susp Liq) 30 ml PO Q6H PRN PRN Reason: DYSPEPSIA Al Hydroxide/Mg Hydroxide (Milk Of Magnesia Liq) 30 ml PO Q12H [facility] Last Admin: 07/28/18 09:36 Dose: 30 ml Albuterol (Duoneb Neb (Prn)) 1 ampul NEB Q2HR NEB PRN PRN Reason: SHORTNESS OF BREATH Aspirin (Ecotrin) 81 mg PO DAILY [facility] Last Admin: 07/28/18 09:36 Dose: 81 mg Bisacodyl (Dulcolax Supp) 10 mg RECTAL DAILY PRN PRN Reason: constipation Carbidopa/Levodopa (Sinemet 25/100 Mg) 1 tab PO BID@1200,1600 [facility] Last Admin: 07/28/18 17:46 Dose: 1 tab Carbidopa/Levodopa (Sinemet 25/100 Mg) 2 tab PO BID@0800,2000 [facility] Last Admin: 07/28/18 09:34 Dose: 2 tab Cetirizine HCl (Zyrtec) 10 mg PO HS [facility] Last Admin: 07/27/18 21:32 Dose: 10 mg Citalopram Hydrobromide (Celexa) 10 mg PO DAILY [facility] Last Admin: 07/28/18 09:35 Dose: 10 mg Clonidine HCl (Catapres) 0.1 mg PO Q6H PRN PRN Reason: HYPERTENSION Enalaprilat (Vasotec Inj) 1.25 mg IV.PUSH Q6H PRN PRN Reason: SBP>180, DBP>95 Enoxaparin Sodium (Lovenox Inj) 40 mg SQ DAILY [facility] Last Admin: 07/28/18 09:36 Dose: 40 mg Hydrochlorothiazide (Microzide) 12.5 mg PO DAILY [facility] Last Admin: 07/28/18 09:35 Dose: 12.5 mg Acetaminophen (Ofirmev Inj) 1,000 mg in 100 mls @ 400 mls/hr IV.SIG Q6H PRN PRN Reason: PAIN SCALE 1 TO 10 Last Infusion: 07/28/18 13:06 Dose: Infused Magnesium Sulfate 2 gm/ Sodium (Chloride) 100 mls @ 100 mls/hr IV.SIG UNSCH PRN PRN Reason: MAGNESIUM LESS THAN 2 Last Infusion: 07/27/18 02:04 Dose: Infused Potassium Chloride (Kcl 20 Meq Premix Inj) 20 meq in 100 mls @ 50 mls/hr IV.SIG UNSCH PRN PRN Reason: POTASSIUM LESS THAN 4 Calcium Gluconate 1 gm/ Sodium (Chloride) 110 mls @ 110 mls/hr IV.SIG UNSCH PRN PRN Reason: SEE LABEL COMMENTS Amiodarone HCl 450 mg/ (Dextrose) 250 mls @ 33.33 mls/hr IV.CONT TITRATE PRN; Protocol PRN Reason: Per Protocol Last Titration: 07/28/18 15:00 Dose: 0.5 mg/min, 16.66 mls/hr Magnesium Sulfate 2 gm/ Sodium (Chloride) 100 mls @ 50 mls/hr IV.SIG UNSCH PRN PRN Reason: For Magnesium 1.2 - 1.6 mg/dL Last Infusion: 07/27/18 02:25 Dose: Infused Potassium Chloride (Kcl 40 Meq Premix Inj) 40 meq in 100 mls @ 25 mls/hr IV.SIG Q2H PRN PRN Reason: For Potassium 2.8 - 3.2 mEq/L Potassium Chloride (Kcl 20 Meq Premix Inj) 20 meq in 100 mls @ 50 mls/hr IV.SIG Q2H PRN PRN Reason: For Potassium 3.3 - 3.5 mEq/L Potassium Chloride (Kcl 40 Meq Premix Inj) 40 meq in 100 mls @ 25 mls/hr IV.SIG UNSCH PRN PRN Reason: For Potassium 3.3 - 3.5 mEq/L Potassium Chloride (Kcl 20 Meq Premix Inj) 20 meq in 100 mls @ 50 mls/hr IV.SIG Q2H PRN PRN Reason: For Potassium 2.8 - 3.2 mEq/L Potassium Phosphate 30 mmol/ (Sodium Chloride) 260 mls @ 42 mls/hr IV.SIG UNSCH PRN PRN Reason: SEE LABEL COMMENTS Sodium Phosphate 30 mmol/ (Sodium Chloride) 260 mls @ 42 mls/hr IV.SIG UNSCH PRN PRN Reason: For Phosphorus < 2.5 mg/dL Magnesium Sulfate 4 gm/ Sodium (Chloride) 100 mls @ 50 mls/hr IV.SIG UNSCH PRN PRN Reason: For Magnesium 0.9 - 1.1 mg/dL Dextrose/Lactated Ringer's (D5w/Lr Inj) 1,000 mls @ 60 mls/hr IV.CONT .[id number] [facility] Last Infusion: 07/28/18 15:00 Dose: 60 mls/hr Amiodarone HCl 450 mg/ Sodium (Chloride) 250 mls @ 33.33 mls/hr IV.CONT TITRATE PRN; Protocol PRN Reason: Per Protocol Last Admin: 07/27/18 21:12 Dose: 1 mg/min, 33.33 mls/hr Cefazolin Sodium 1,000 mg/ (Sodium Chloride) 100 mls @ 200 mls/hr IV.SIG GUIDANCE SERVICES COORDINATOR [facility] Stop: 07/31/18 09:44 Labetalol HCl (Trandate Inj) 10 mg IV.PUSH Q1H PRN PRN Reason: SYS BP GREATER THAN 170 MMHG Lactulose (Lactulose Liq) 30 ml PO DAILY PRN PRN Reason: SEVERE CONSITIPATION Lisinopril (Prinivil) 10 mg PO DAILY [facility] Last Admin: 07/28/18 09:35 Dose: 10 mg Magnesium Oxide (Mag-Ox) 800 mg PO UNSCH PRN PRN Reason: For Magnesium 1.2 - 1.6 mg/dL Menthol ([place]) 1 lozenge BUCCAL UNSCH PRN PRN Reason: SORE THROAT Metoprolol Tartrate (Lopressor) 12.5 mg PO BID [facility] Last Admin: 07/28/18 09:35 Dose: 12.5 mg Miscellaneous (Pill Splitter) 1 each OTHER UNSCH [facility] Morphine Sulfate (Morphine Inj) 2 mg IV.PUSH Q2H PRN PRN Reason: breakthrough pain Ondansetron HCl (Zofran Inj) 4 mg IV.PUSH Q6H PRN PRN Reason: NAUSEA OR VOMITING Pantoprazole Sodium (Protonix Inj) 40 mg IV.PUSH Q24H [facility] Last Admin: 07/28/18 06:45 Dose: 40 mg Potassium Bicarb/Potassium Chloride (K-Lyte Cl Eff) 50 meq PO UNSCH PRN PRN Reason: For Potassium 3.3 - 3.5 mEq/L Potassium Phosphate (K-Phos Original) 2,000 mg PO Q4H PRN PRN Reason: Phosphorus Less Than 2.5 mg/dL Potassium Phosphate (K-Phos Original) 2,000 mg PO UNSCH PRN PRN Reason: SEE LABEL COMMENTS Senna/Docusate Sodium (Johanny-Colace) 1 tab PO BID [facility] Last Admin: 07/28/18 09:35 Dose: 1 tab Sennosides (Senokot) 17.2 mg PO Q12H PRN PRN Reason: Moderate Constipation Sodium Chloride (Ns Flush) 2 ml IV.FLUSH BID [facility] Last Admin: 07/28/18 09:36 Dose: 2 ml Sodium Chloride (Ns Flush) 2 ml IV.FLUSH PRN PRN PRN Reason: FLUSH AFTER USING IV ACCESS <Jorge Melgoza E - Last Filed: 07/28/18 19:08> Allergies Allergy/AdvReac Type Severity Reaction Status Date / Time simvastatin Allergy Intermediate RASH Verified 07/22/18 22:02 haloperidol [From Haldol] Allergy Hallucinati Verified 07/22/18 22:05 ons prochlorperazine Allergy Anaphylaxis Verified 07/22/18 22:05 [From Compazine] Home Medications Medication Instructions Recorded Confirmed Type amlodipine 10 mg PO DAILY 07/22/18 07/22/18 History aspirin 81 mg PO DAILY 07/22/18 07/22/18 History benazepril-hydrochlorothiazide 1 tab PO DAILY 07/22/18 07/22/18 History carbidopa-levodopa 2 tab PO Q8H 07/22/18 07/22/18 History cetirizine 10 mg PO HS 07/22/18 07/22/18 History citalopram 10 mg PO DAILY 07/22/18 07/22/18 History ibuprofen 800 mg PO TID PRN 07/22/18 07/22/18 History Exam Vital signs: Vital Signs 07/27/18 12:00 07/27/18 14:00 07/27/18 15:47 Temperature 98.1 F Pulse Rate 71 69 Respiratory Rate 16 Blood Pressure 115/58 L Pulse Oximetry 99 99 07/27/18 16:00 07/27/18 17:59 07/27/18 20:00 Temperature 98.3 F 98 F Pulse Rate 70 68 68 Respiratory Rate 16 12 Blood Pressure 131/60 136/63 Pulse Oximetry 99 100 07/27/18 22:00 07/28/18 00:00 07/28/18 02:00 Temperature 98.2 F Pulse Rate 68 64 76 Respiratory Rate 30 H Blood Pressure 137/62 Pulse Oximetry 100 07/28/18 04:00 07/28/18 06:00 07/28/18 08:04 Temperature 98.2 F Pulse Rate 66 64 Respiratory Rate 16 Blood Pressure 125/59 L Pulse Oximetry 100 100 Intake & Output 07/27/18 07/28/18 07/28/18 18:59 06:59 18:59 Intake Total 1250 / 1250 950 / 950 Output Total 300 / 300 275 / 275 Balance 950 / 950 675 / 675 Weight 70.7 kg Intake: IV 1000 / 1000 950 / 950 D5W/LR Inj 1,000 ML @ 60 mls/hr 950 / 950 IV.CONT .[id number] [facility] Rx#: [id number] NS Inj 1,000 ML @ 60 mls/hr IV. 1000 / 1000 SIG .[id number] [facility] Rx#:[id number] Oral 250 / 250 Output: Urine 300 / 300 Urine Amount (Catheter) 275 / 275 Coude 275 / 275 Other: # Voids 1 Date of Last Bowel Movement 07/28/18 # Bowel Movements 1 - Constitutional no acute distress (Currently maintained with c-collar), average body habitus - Routine HEENT Exam ENT: Present: mucous membranes moist (O2 per nasal cannula at 1 L) - Routine Neck Exam Present: trauma (C-collar) - Routine Respiratory Exam Present: accessory muscle use (No obvious shortness of breath) - Routine Cardiovascular Exam Present: S1, S2 (Regular) - Routine Abdominal Exam Present: soft (Round, soft bowel sounds no obvious distention) <Kay Villafuerte - Last Filed: 07/28/18 10:29> Vital signs: Vital Signs 07/27/18 20:00 07/27/18 22:00 07/28/18 00:00 Temperature 98 F 98.2 F Pulse Rate 68 68 64 Respiratory Rate 12 30 H Blood Pressure 136/63 137/62 Pulse Oximetry 100 100 07/28/18 02:00 07/28/18 04:00 07/28/18 06:00 Temperature 98.2 F Pulse Rate 76 66 64 Respiratory Rate 16 Blood Pressure 125/59 L Pulse Oximetry 100 07/28/18 08:00 07/28/18 08:04 07/28/18 10:00 Temperature 98.2 F Pulse Rate 62 60 Respiratory Rate 14 Blood Pressure 129/56 L Pulse Oximetry 99 100 07/28/18 12:00 07/28/18 14:00 07/28/18 16:00 Temperature 98 F 98.3 F Pulse Rate 54 L 54 L 54 L Respiratory Rate 15 20 Blood Pressure 111/56 L 121/59 L Pulse Oximetry 100 99 07/28/18 18:00 Temperature Pulse Rate 62 Respiratory Rate Blood Pressure Pulse Oximetry Intake & Output 07/28/18 07/28/18 07/29/18 06:59 18:59 06:59 Intake Total 950 / 950 350 / 350 Output Total 275 / 275 Balance 675 / 675 350 / 350 Weight 70.7 kg Intake: IV 950 / 950 350 / 350 Cordarone Inj 450 MG In D5W Inj 250 / 250 241 ML @ 1 MG/MIN 33.33 mls/hr IV.CONT TITRATE PRN Rx#: [id number] D5W/LR Inj 1,000 ML @ 60 mls/hr 950 / 950 IV.CONT .[id number] [facility] Rx#: [id number] Ofirmev Inj 1,000 mg In 100 ml 100 / 100 @ 400 mls/hr IV.SIG Q6H PRN Rx# :[id number] Output: Urine Amount (Catheter) 275 / 275 Coude 275 / 275 Other: Date of Last Bowel Movement 07/28/18 07/28/18 # Bowel Movements 1 <Jorge Melgoza - Last Filed: 07/28/18 19:08> Results - Labs CBC & Chem 7: 07/27/18 05:02 07/28/18 03:59 Labs: Laboratory Results - last 24 hr 07/27/18 07/28/18 19:09 03:59 Sodium 140 Potassium 3.8 Chloride 100 Carbon Dioxide 32.7 H Anion Gap 7 BUN 18 Creatinine 0.67 Estimated GFR Greater than 89 Random Glucose 101 Calcium 8.4 L Magnesium 2.1 Total Creatine Kinase 229 CK-MB (CK-2) 5.4 H Troponin I Less than 0.02 L TSH 1.480 - Imaging Impressions Abdomen X-Ray 07/27/18 21:54 CONCLUSION: Dobbhoff feeding tube tip is in the mid stomach. <Kay Villafuerte - Last Filed: 07/28/18 10:29> - Labs CBC & Chem 7: 07/27/18 05:02 07/28/18 03:59 Labs: Laboratory Results - last 24 hr 07/27/18 07/28/18 19:09 03:59 Sodium 140 Potassium 3.8 Chloride 100 Carbon Dioxide 32.7 H Anion Gap 7 BUN 18 Creatinine 0.67 Estimated GFR Greater than 89 Random Glucose 101 Calcium 8.4 L Magnesium 2.1 Total Creatine Kinase 229 CK-MB (CK-2) 5.4 H Troponin I Less than 0.02 L TSH 1.480 - Imaging Impressions Abdomen X-Ray 07/27/18 21:54 CONCLUSION: Dobbhoff feeding tube tip is in the mid stomach. <Jorge Melgoza - Last Filed: 07/28/18 19:08> Assessment and Plan - Plan 82-year-old male currently in the intensive care unit status post traumatic fall on 07/22/2018. Patient currently is being monitored with c-collar on and has noted fractures of C1 and C2. He has had a history and some complications during this hospital stay with atrial flutter and also has chronic Parkinson's disease as well as chronic peripheral neuropathy hypertension and depression. Gastroenterology was consulted to assist with long-term nutritional needs with percutaneous endoscopic gastric tube placement. Current labs show hemoglobin 13.8, PT/INR 1.1, bilirubin and LFTs are normal. Patient has Dobbhoff in place and clamped but has orders for Jevity 1.5 at 20 cc an hour goal rate 50 cc an hour. There is currently no family present and patient is unresponsive to any verbal stimuli but according to nurse does respond to painful stimuli. Current oxygen per nasal cannula at 1 L and no obvious shortness of breath. Long-term nutritional needs, currently has Dobbhoff in place, plan for PEG tube placement in the a.m. discussed with nurse Plan N.p.o. at midnight , decompressed on the continue tube feedings Ancef 1 g quality assurance monitor body 408 100 in the morning Consent for PEG tube placement Monitor any acute changes and labs Further recommendations to follow Patient was seen per myself and Dr. Melgoza, note was written on his behalf <Kay Villafuerte M - Last Filed: 07/28/18 10:29> - Plan Patient seen and examined Agree with above Continue with current supportive care Monitor labs We will plan on PEG placement tomorrow <Jorge Melgoza - Last Filed: 07/28/18 19:08>
--- NOTE | 2018-07-28 11:53 | P.DIET ---
Nutritional Evaluation Type of nutrition evaluation: initial Nutrition consult regarding: Tube Feeding Objective - Diagnosis C1 and C2 Fx - Objective Body Mass Index: 23.0 % IBW: 97 (IBW = 160#) Body Weight Used for Calculations: Actual (70.7) Energy Needs - Lower Range (kCal/kg): 25 Energy Needs - Upper Range (kCal/kg): 30 Lower Limit kCal/kg (kCals): 1,768 Upper Limit kCal/kg (kCals): 2,121 Lower Limit Protein Factor (Grams per Kg): 1.0 Upper Limit Protein Factor (Grams per Kg): 1.5 Lower Protein Needs (Protein): 71 Upper Protein Needs (Protein): 106 Dietitian Reviewed in Medical Record: Curent medications, Intake & Output, Labs , Medical history, Tube feeding Objective Comments: Hx includes Parkinson Assessment Assessment: Pt is at high nutrition risk 2' to his need for TFing. PEG is planned. Recommend Jevity 1.5 @ 55 mls/hr to provide 1980 kcals, 84 gms protein and 1003 mls of free water. Recommendations: Jevity 1.5 @ 55 mls/hr goal Dietitian to Monitor: Lab values, Tube feeding tolerance, Weight change, Medical course
--- NOTE | 2018-07-28 14:05 | P.PNCA ---
Subjective Interval history: alert in nad Medications and Allergies Active Medications: Active Medications Hydrocodone Bitart/Acetaminophen (Geraldine 10/325) 1 tab PO Q4H PRN PRN Reason: Pain > 3 Last Admin: 07/24/18 20:49 Dose: 1 tab Al Hydrox/Mg Hydrox/Simethicone (Mag-Al Plus Susp Liq) 30 ml PO Q6H PRN PRN Reason: DYSPEPSIA Al Hydroxide/Mg Hydroxide (Milk Of Magnesia Liq) 30 ml PO Q12H [facility] Last Admin: 07/28/18 09:36 Dose: 30 ml Albuterol (Duoneb Neb (Prn)) 1 ampul NEB Q2HR NEB PRN PRN Reason: SHORTNESS OF BREATH Aspirin (Ecotrin) 81 mg PO DAILY [facility] Last Admin: 07/28/18 09:36 Dose: 81 mg Bisacodyl (Dulcolax Supp) 10 mg RECTAL DAILY PRN PRN Reason: constipation Carbidopa/Levodopa (Sinemet 25/100 Mg) 1 tab PO BID@1200,1600 [facility] Last Admin: 07/28/18 12:06 Dose: 1 tab Carbidopa/Levodopa (Sinemet 25/100 Mg) 2 tab PO BID@0800,2000 [facility] Last Admin: 07/28/18 09:34 Dose: 2 tab Cetirizine HCl (Zyrtec) 10 mg PO HS [facility] Last Admin: 07/27/18 21:32 Dose: 10 mg Citalopram Hydrobromide (Celexa) 10 mg PO DAILY [facility] Last Admin: 07/28/18 09:35 Dose: 10 mg Clonidine HCl (Catapres) 0.1 mg PO Q6H PRN PRN Reason: HYPERTENSION Enalaprilat (Vasotec Inj) 1.25 mg IV.PUSH Q6H PRN PRN Reason: SBP>180, DBP>95 Enoxaparin Sodium (Lovenox Inj) 40 mg SQ DAILY [facility] Last Admin: 07/28/18 09:36 Dose: 40 mg Hydrochlorothiazide (Microzide) 12.5 mg PO DAILY [facility] Last Admin: 07/28/18 09:35 Dose: 12.5 mg Acetaminophen (Ofirmev Inj) 1,000 mg in 100 mls @ 400 mls/hr IV.SIG Q6H PRN PRN Reason: PAIN SCALE 1 TO 10 Last Admin: 07/28/18 12:51 Dose: 400 mls/hr Magnesium Sulfate 2 gm/ Sodium (Chloride) 100 mls @ 100 mls/hr IV.SIG UNSCH PRN PRN Reason: MAGNESIUM LESS THAN 2 Last Infusion: 07/27/18 02:04 Dose: Infused Potassium Chloride (Kcl 20 Meq Premix Inj) 20 meq in 100 mls @ 50 mls/hr IV.SIG UNSCH PRN PRN Reason: POTASSIUM LESS THAN 4 Calcium Gluconate 1 gm/ Sodium (Chloride) 110 mls @ 110 mls/hr IV.SIG UNSCH PRN PRN Reason: SEE LABEL COMMENTS Amiodarone HCl 450 mg/ (Dextrose) 250 mls @ 33.33 mls/hr IV.CONT TITRATE PRN; Protocol PRN Reason: Per Protocol Last Admin: 07/28/18 12:37 Dose: 0.5 mg/min, 16.66 mls/hr Magnesium Sulfate 2 gm/ Sodium (Chloride) 100 mls @ 50 mls/hr IV.SIG UNSCH PRN PRN Reason: For Magnesium 1.2 - 1.6 mg/dL Last Infusion: 07/27/18 02:25 Dose: Infused Potassium Chloride (Kcl 40 Meq Premix Inj) 40 meq in 100 mls @ 25 mls/hr IV.SIG Q2H PRN PRN Reason: For Potassium 2.8 - 3.2 mEq/L Potassium Chloride (Kcl 20 Meq Premix Inj) 20 meq in 100 mls @ 50 mls/hr IV.SIG Q2H PRN PRN Reason: For Potassium 3.3 - 3.5 mEq/L Potassium Chloride (Kcl 40 Meq Premix Inj) 40 meq in 100 mls @ 25 mls/hr IV.SIG UNSCH PRN PRN Reason: For Potassium 3.3 - 3.5 mEq/L Potassium Chloride (Kcl 20 Meq Premix Inj) 20 meq in 100 mls @ 50 mls/hr IV.SIG Q2H PRN PRN Reason: For Potassium 2.8 - 3.2 mEq/L Potassium Phosphate 30 mmol/ (Sodium Chloride) 260 mls @ 42 mls/hr IV.SIG UNSCH PRN PRN Reason: SEE LABEL COMMENTS Sodium Phosphate 30 mmol/ (Sodium Chloride) 260 mls @ 42 mls/hr IV.SIG UNSCH PRN PRN Reason: For Phosphorus < 2.5 mg/dL Magnesium Sulfate 4 gm/ Sodium (Chloride) 100 mls @ 50 mls/hr IV.SIG UNSCH PRN PRN Reason: For Magnesium 0.9 - 1.1 mg/dL Dextrose/Lactated Ringer's (D5w/Lr Inj) 1,000 mls @ 60 mls/hr IV.CONT .[id number] [facility] Last Admin: 07/28/18 04:07 Dose: 60 mls/hr Amiodarone HCl 450 mg/ Sodium (Chloride) 250 mls @ 33.33 mls/hr IV.CONT TITRATE PRN; Protocol PRN Reason: Per Protocol Last Admin: 07/27/18 21:12 Dose: 1 mg/min, 33.33 mls/hr Cefazolin Sodium 1,000 mg/ (Sodium Chloride) 100 mls @ 200 mls/hr IV.SIG [employer]PER[employer]OR [facility] Stop: 07/31/18 09:44 Labetalol HCl (Trandate Inj) 10 mg IV.PUSH Q1H PRN PRN Reason: SYS BP GREATER THAN 170 MMHG Lactulose (Lactulose Liq) 30 ml PO DAILY PRN PRN Reason: SEVERE CONSITIPATION Lisinopril (Prinivil) 10 mg PO DAILY [facility] Last Admin: 07/28/18 09:35 Dose: 10 mg Magnesium Oxide (Mag-Ox) 800 mg PO UNSCH PRN PRN Reason: For Magnesium 1.2 - 1.6 mg/dL Menthol ([place]) 1 lozenge BUCCAL UNSCH PRN PRN Reason: SORE THROAT Metoprolol Tartrate (Lopressor) 12.5 mg PO BID [facility] Last Admin: 07/28/18 09:35 Dose: 12.5 mg Miscellaneous (Pill Splitter) 1 each OTHER UNSCH [facility] Morphine Sulfate (Morphine Inj) 2 mg IV.PUSH Q2H PRN PRN Reason: breakthrough pain Ondansetron HCl (Zofran Inj) 4 mg IV.PUSH Q6H PRN PRN Reason: NAUSEA OR VOMITING Pantoprazole Sodium (Protonix Inj) 40 mg IV.PUSH Q24H [facility] Last Admin: 07/28/18 06:45 Dose: 40 mg Potassium Bicarb/Potassium Chloride (K-Lyte Cl Eff) 50 meq PO UNSCH PRN PRN Reason: For Potassium 3.3 - 3.5 mEq/L Potassium Phosphate (K-Phos Original) 2,000 mg PO Q4H PRN PRN Reason: Phosphorus Less Than 2.5 mg/dL Potassium Phosphate (K-Phos Original) 2,000 mg PO UNSCH PRN PRN Reason: SEE LABEL COMMENTS Senna/Docusate Sodium (Johanny-Colace) 1 tab PO BID [facility] Last Admin: 07/28/18 09:35 Dose: 1 tab Sennosides (Senokot) 17.2 mg PO Q12H PRN PRN Reason: Moderate Constipation Sodium Chloride (Ns Flush) 2 ml IV.FLUSH BID [facility] Last Admin: 07/28/18 09:36 Dose: 2 ml Sodium Chloride (Ns Flush) 2 ml IV.FLUSH PRN PRN PRN Reason: FLUSH AFTER USING IV ACCESS Allergies Allergy/AdvReac Type Severity Reaction Status Date / Time simvastatin Allergy Intermediate RASH Verified 07/22/18 22:02 haloperidol [From Haldol] Allergy Hallucinati Verified 07/22/18 22:05 ons prochlorperazine Allergy Anaphylaxis Verified 07/22/18 22:05 [From Compazine] Home Medications Medication Instructions Recorded Confirmed Type amlodipine 10 mg PO DAILY 07/22/18 07/22/18 History aspirin 81 mg PO DAILY 07/22/18 07/22/18 History benazepril-hydrochlorothiazide 1 tab PO DAILY 07/22/18 07/22/18 History carbidopa-levodopa 2 tab PO Q8H 07/22/18 07/22/18 History cetirizine 10 mg PO HS 07/22/18 07/22/18 History citalopram 10 mg PO DAILY 07/22/18 07/22/18 History ibuprofen 800 mg PO TID PRN 07/22/18 07/22/18 History Physical Exam Vital signs: Vital Signs 07/27/18 15:47 07/27/18 16:00 07/27/18 17:59 Temperature 98.3 F Pulse Rate 70 68 Respiratory Rate 16 Blood Pressure 131/60 Pulse Oximetry 99 99 07/27/18 20:00 07/27/18 22:00 07/28/18 00:00 Temperature 98 F 98.2 F Pulse Rate 68 68 64 Respiratory Rate 12 30 H Blood Pressure 136/63 137/62 Pulse Oximetry 100 100 07/28/18 02:00 07/28/18 04:00 07/28/18 06:00 Temperature 98.2 F Pulse Rate 76 66 64 Respiratory Rate 16 Blood Pressure 125/59 L Pulse Oximetry 100 07/28/18 08:04 Temperature Pulse Rate Respiratory Rate Blood Pressure Pulse Oximetry 100 Intake & Output 07/27/18 07/28/18 07/28/18 18:59 06:59 18:59 Intake Total 1250 / 1250 950 / 950 250 / 250 Output Total 300 / 300 275 / 275 Balance 950 / 950 675 / 675 250 / 250 Weight 70.7 kg Intake: IV 1000 / 1000 950 / 950 250 / 250 Cordarone Inj 450 MG In D5W Inj 250 / 250 241 ML @ 1 MG/MIN 33.33 mls/hr IV.CONT TITRATE PRN Rx#: [id number] D5W/LR Inj 1,000 ML @ 60 mls/hr 950 / 950 IV.CONT .[id number] [facility] Rx#: [id number] NS Inj 1,000 ML @ 60 mls/hr IV. 1000 / 1000 SIG .[id number] [facility] Rx#:[id number] Oral 250 / 250 Output: Urine 300 / 300 Urine Amount (Catheter) 275 / 275 Coude 275 / 275 Other: # Voids 1 Date of Last Bowel Movement 07/28/18 # Bowel Movements 1 - Urinary Catheter Management Coude Cath placed during this visit: yes Reason for continuing: Hourly intake/output Insertion date: 07/23/18 Insertion time: 01:42 Indwelling Urethral Catheter Cath placed during this visit: no Reason for continuing: Hourly intake/output Results 07/27/18 05:02 07/28/18 03:59 Cardiac Enzymes 07/27/18 07/27/18 Range/Units 05:02 19:09 AST 27 (15-37) U/L CK-MB (CK-2) 5.4 H (0.5-3.6) ng/mL Troponin I Less than 0.02 L (0.02-0.05) ng/mL CBC 07/27/18 Range/Units 05:02 WBC 9.7 (4.0-11.0) th/mm3 RBC 4.62 (4.50-5.90) mil/mm3 Hgb 13.8 (13.0-17.0) gm/dL Hct 41.1 (39.0-51.0) % Plt Count 237 (150-450) th/mm3 Neut # (Auto) 7.1 (1.8-7.7) th/mm3 Lymph # (Auto) 1.4 (1.0-4.8) th/mm3 [place] # (Auto) 0.8 (0.0-0.9) th/mm3 Eos # (Auto) 0.4 (0.0-0.4) th/mm3 Baso # (Auto) 0.1 (0.0-0.2) th/mm3 Comprehensive Metabolic Panel 07/26/18 07/27/18 07/28/18 Range/Units 21:00 05:02 03:59 Sodium 140 140 (136-145) meq/L Potassium 3.6 D 4.0 3.8 (3.5-5.1) meq/L Chloride 102 100 (98-107) meq/L Carbon Dioxide 30.8 32.7 H (21.0-32.0) meq/L BUN 17 18 (7-18) mg/dL Creatinine 0.64 0.67 (0.60-1.30) mg/dL Calcium 9.1 8.4 L (8.5-10.1) mg/dL AST 27 (15-37) U/L ALT 11 L (12-78) U/L Alkaline Phosphatase 81 (45-117) U/L Total Protein 6.6 (6.4-8.2) g/dL Albumin 3.3 L (3.4-5.0) g/dL Intake and Output 07/27/18 07/28/18 07/28/18 22:59 06:59 14:59 Intake Total 250 / 250 950 / 950 250 / 250 Output Total 300 / 300 275 / 275 Balance -50 / -50 675 / 675 250 / 250 Intake: IV 950 / 950 250 / 250 Cordarone Inj 450 MG In D5W Inj 250 / 250 241 ML @ 1 MG/MIN 33.33 mls/hr IV.CONT TITRATE PRN Rx#: [id number] D5W/LR Inj 1,000 ML @ 60 mls/hr 950 / 950 IV.CONT .[id number] [facility] Rx#: [id number] Oral 250 / 250 Output: Urine 300 / 300 Urine Amount (Catheter) 275 / 275 Coude 275 / 275 Other: # Voids 1 Date of Last Bowel Movement 07/28/18 # Bowel Movements 1 Weight 70.7 kg - Imaging and Cardiology Imaging: Impressions Abdomen X-Ray 07/27/18 21:54 CONCLUSION: Dobbhoff feeding tube tip is in the mid stomach. Assessment and Plan - Assessment (1) Atrial fibrillation Code(s): I48.91 - Unspecified atrial fibrillation Status: Acute (2) C1 cervical fracture Code(s): S12.000A - Unspecified displaced fracture of first cervical vertebra, initial encounter for closed fracture Status: Acute (3) Closed dens fracture Code(s): S12.100A - Unspecified displaced fracture of second cervical vertebra, initial encounter for closed fracture Status: Acute (4) Fall from standing Code(s): W19.XXXA - Unspecified fall, initial encounter Status: Acute (5) Type II dens fracture of second cervical vertebra Code(s): S12.110A - Anterior displaced Type II dens fracture, initial encounter for closed fracture Status: Acute (6) Parkinson disease Code(s): G20 - Parkinson's disease Status: Acute - Plan 1.) PAF - in nsr on monitor, on iv amio, i advised patient to take coumadin or noac if/when cleared by Dr Ephraim Roth, due to [id number] score = 2, to lower risk of life threatening or debilitating cva, he understands and is undecided (2) C1 cervical fracture Qualifiers: Encounter type: initial encounter Fracture type: closed Fracture morphology : posterior arch Fracture alignment: displaced Qualified Code(s): S12.030A - Displaced posterior arch fracture of first cervical vertebra, initial encounter for closed fracture (5) Type II dens fracture of second cervical vertebra Qualifiers: Encounter type: initial encounter Fracture type: closed Fracture alignment: posteriorly displaced Qualified Code(s): S12.111A - Posterior displaced Type II dens fracture, initial encounter for closed fracture
--- NOTE | 2018-07-28 16:59 | P.PNIM ---
Subjective Interval history: Patient is awake spotting to some of my questions. He does not appear to be in any acute distress. Physical Exam Vital signs: Vital Signs 07/27/18 17:59 07/27/18 20:00 07/27/18 22:00 Temperature 98 F Pulse Rate 68 68 68 Respiratory Rate 12 Blood Pressure 136/63 Pulse Oximetry 100 07/28/18 00:00 07/28/18 02:00 07/28/18 04:00 Temperature 98.2 F 98.2 F Pulse Rate 64 76 66 Respiratory Rate 30 H 16 Blood Pressure 137/62 125/59 L Pulse Oximetry 100 100 07/28/18 06:00 07/28/18 08:00 07/28/18 08:04 Temperature 98.2 F Pulse Rate 64 62 Respiratory Rate 14 Blood Pressure 129/56 L Pulse Oximetry 99 100 07/28/18 10:00 07/28/18 12:00 07/28/18 14:00 Temperature 98 F Pulse Rate 60 54 L 54 L Respiratory Rate 15 Blood Pressure 111/56 L Pulse Oximetry 100 Intake & Output 07/27/18 07/28/18 07/28/18 18:59 06:59 18:59 Intake Total 1250 / 1250 950 / 950 350 / 350 Output Total 300 / 300 275 / 275 Balance 950 / 950 675 / 675 350 / 350 Weight 70.7 kg Intake: IV 1000 / 1000 950 / 950 350 / 350 Cordarone Inj 450 MG In D5W Inj 250 / 250 241 ML @ 1 MG/MIN 33.33 mls/hr IV.CONT TITRATE PRN Rx#: [id number] D5W/LR Inj 1,000 ML @ 60 mls/hr 950 / 950 IV.CONT .[id number] [facility] Rx#: [id number] Ofirmev Inj 1,000 mg In 100 ml 100 / 100 @ 400 mls/hr IV.SIG Q6H PRN Rx# :[id number] NS Inj 1,000 ML @ 60 mls/hr IV. 1000 / 1000 SIG .[id number] [facility] Rx#:[id number] Oral 250 / 250 Output: Urine 300 / 300 Urine Amount (Catheter) 275 / 275 Coude 275 / 275 Other: # Voids 1 Date of Last Bowel Movement 07/28/18 07/28/18 # Bowel Movements 1 Narrative: General patient in no acute distress HEENT extraocular movements are intact, NG tube in place, nickel sized wound over the top of the patient's head scabbing over. C-collar in place. Cardiovascular S1-S2 audible, RRR, no murmurs rubs or gallops Respiratory clear to auscultation bilaterally Abdomen soft, nontender, nondistended, normal bowel sounds Extremities no edema 2+ distal pulses in bilateral upper and lower extremities Neuro patient can move all 4 extremities sensation is intact bilaterally - Urinary Catheter Management Coude Cath placed during this visit: yes Reason for continuing: Hourly intake/output Insertion date: 07/23/18 Insertion time: 01:42 Indwelling Urethral Catheter Cath placed during this visit: no Reason for continuing: Hourly intake/output Results - Labs CBC & Chem 7: 07/27/18 05:02 07/28/18 03:59 Laboratory Results - last 24 hr 07/27/18 07/28/18 19:09 03:59 Sodium 140 Potassium 3.8 Chloride 100 Carbon Dioxide 32.7 H Anion Gap 7 BUN 18 Creatinine 0.67 Estimated GFR Greater than 89 Random Glucose 101 Calcium 8.4 L Magnesium 2.1 Total Creatine Kinase 229 CK-MB (CK-2) 5.4 H Troponin I Less than 0.02 L TSH 1.480 - Imaging Impressions Abdomen X-Ray 07/27/18 21:54 CONCLUSION: Dobbhoff feeding tube tip is in the mid stomach. Assessment and Plan - Plan 82-year-old male with Parkinson's disease admitted to the trauma service after traumatic fall where he sustained a C1 bilateral posterior arch fracture in the C2 odontoid fracture. The patient was under the care of neurosurgery as well as the trauma service. This morning he was found to have what appears to be atrial flutter with rapid ventricular rate. Paroxysmal atrial fibrillation Heart rate is currently under control. The patient is now in normal sinus rhythm. The patient was given 2 doses of digoxin and was started on an amiodarone drip yesterday Cardiology evaluated the patient and recommends starting the patient on anticoagulation as he has an elevated chads vasc score. Patient will be started on a beta-isi. Twelve-lead EKG shows normal sinus rhythm no acute ST segment or T wave changes. The patient is asymptomatic no complaints of chest pain or palpitations. Electrolytes within normal limits today. Continue to monitor electrolytes. TSH within normal limits. C1 bilateral posterior arch and C2 type II odontoid fracture: Neurosurgery following. Patient is status post anterior cervical C2 odontoid screw placement Routine postoperative care per neurosurgery. C-collar in place. Early PT Chronic Parkinson's disease Continue on his Sinemet carbidopalevodopa. Continue current management. Patient has worsening dysphagia. We will continue to monitor the patient however he may require a PEG tube placement given his history of progressively worsening dysphagia. GI evaluated the patient and he is scheduled for PEG tube placement tomorrow a.m. Continue current feeds through the NG tube. Chronic peripheral neuropathy: Fall risk. Continue PT Hypertension on amlodipine, benazepril hydrochlorothiazide. Depression on citalopram
--- NOTE | 2018-07-28 17:25 | ECG ---
Date Performed: 07/27/2018 Time Performed: 19:27:24 PTAGE: 82 years EKG: Sinus rhythm NORMAL ECG PREVIOUS TRACING : 07/27/2018 09.40 Since the previous tracing, no significant change noted DOCTOR: Alin Mclaughlin Interpretating Date/Time 07/28/2018 17:24:20
--- NOTE | 2018-07-28 17:40 | P.PNCC ---
Subjective Brief History: 82-year-old gentleman who presented to [place] emergency room after a trip and a fall last evening. The patient's friend says that she had mopped the tile floor in front of the patient's chair, and when he got up he slipped and fell forward, hitting his head on the floor. No LOC, patient reports neck pain but denies any new numbness/ tingling/ weakness of extremities. He relates chronic numbness related to peripheral neuropathy. He also has Parkinson's disease. Workup included CT of the head was negative for any intracranial injury and CT of cervical spine reveals C1 posterior arch bilateral fracture as well as a C2 type II odontoid fracture with widening of the fracture line anteriorly. She is maintaining a cervical spinal precautions with a collar and transferred to [facility] for further management. Patient is known to have severe Parkinson's disease and is medicated appropriately. Patient will be admitted to ICU for further care Neurosurgery consult greatly appreciated 07/25/2018 Patient is awake alert and oriented and status post C2 anterior screw placement Neurologically patient is intact Hemodynamically stable Bilateral breath sounds with good inspiratory effort Abdomen soft active bowel sounds and patient is started on a diet Restart levodopa / carbodopa i.e. Sinemet for Parkinson's disease Renal function preserved Patient will require aggressive physical therapy and should be referred to the [facility] rehab Consult Dr. Eller 07/09/2018 Nothing to add to care at this time Patient is neurologically intact awake alert and oriented Tolerates regular diet well Patient is ready to transfer to floor or to rehab unit which ever is available Aggressive physical and occupational therapy necessary 24 Hour Review/Hospital Course: 07/27 Javier gray last night Has been started on amiodarone and digoxin with his rate control was achieved His magnesium and potassium are within normal limits an EKG and troponin will be obtained I will consult cardiology echocardiogram will be ordered Patient will be maintained on IV fluids as he is felt he is speech assessment today he has dysphasia combination of postop dysphagia on his C1 fracture in an elderly patient and also Parkinson With this findings we will proceed with a Dobbhoff insertion to continue tube feeds and his oral medications I believe it would be advisable to obtain a GI consult for PEG after discussion with the 07/28 Patient now is in sinus rhythm He remains hemodynamically normal mental status and neuro status are unchanged Patient is a severe dysphagia combination of postsurgical trauma C1-C2 fracture and also Parkinson findings beneficial that patient receives a PEG tube She will be started on beta-isi by the cardiology service /scheduled for PEG tomorrow If remains off any drips for is heart should be transferred tomorrow to the 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 is planning on discharge plan Objective Vital Signs / I&O: Vital Signs 07/27/18 17:59 07/27/18 20:00 07/27/18 22:00 Temperature 98 F Pulse Rate 68 68 68 Respiratory Rate 12 Blood Pressure 136/63 Pulse Oximetry 100 07/28/18 00:00 07/28/18 02:00 07/28/18 04:00 Temperature 98.2 F 98.2 F Pulse Rate 64 76 66 Respiratory Rate 30 H 16 Blood Pressure 137/62 125/59 L Pulse Oximetry 100 100 07/28/18 06:00 07/28/18 08:00 07/28/18 08:04 Temperature 98.2 F Pulse Rate 64 62 Respiratory Rate 14 Blood Pressure 129/56 L Pulse Oximetry 99 100 07/28/18 10:00 07/28/18 12:00 07/28/18 14:00 Temperature 98 F Pulse Rate 60 54 L 54 L Respiratory Rate 15 Blood Pressure 111/56 L Pulse Oximetry 100 Intake & Output 07/27/18 07/28/18 07/28/18 18:59 06:59 18:59 Intake Total 1250 / 1250 950 / 950 350 / 350 Output Total 300 / 300 275 / 275 Balance 950 / 950 675 / 675 350 / 350 Weight 70.7 kg Intake: IV 1000 / 1000 950 / 950 350 / 350 Cordarone Inj 450 MG In D5W Inj 250 / 250 241 ML @ 1 MG/MIN 33.33 mls/hr IV.CONT TITRATE PRN Rx#: [id number] D5W/LR Inj 1,000 ML @ 60 mls/hr 950 / 950 IV.CONT .[id number] [facility] Rx#: [id number] Ofirmev Inj 1,000 mg In 100 ml 100 / 100 @ 400 mls/hr IV.SIG Q6H PRN Rx# :[id number] NS Inj 1,000 ML @ 60 mls/hr IV. 1000 / 1000 SIG .[id number] [facility] Rx#:[id number] Oral 250 / 250 Output: Urine 300 / 300 Urine Amount (Catheter) 275 / 275 Coude 275 / 275 Other: # Voids 1 Date of Last Bowel Movement 07/28/18 07/28/18 # Bowel Movements 1 Result Diagrams: 07/27/18 05:02 07/28/18 03:59 Imaging: Impressions Abdomen X-Ray 07/27/18 21:54 CONCLUSION: Dobbhoff feeding tube tip is in the mid stomach. 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 fib Continue pain control Continue hydration GI consult tomorrow d for PEG Discharge planning
[2018-07-29 04:46] LABS: Hematocrit 37.9 % (39.0-51.0); Hemoglobin 12.9 gm/dL (13.0-17.0); Mean Corpuscular HGB Conc 34.1 % (32.0-36.0); Mean Corpuscular Volume 88.1 fL (80.0-100.0); Mean Platelet Volume 8.4 fL (7.0-11.0); Platelet Count 242 th/mm3 (150-450); Red Cell Distribution Width 13.7 % (11.6-17.2); White Blood Count 6.8 th/mm3 (4.0-11.0)
[2018-07-29] MEDS: Pantoprazole Inj 40 MG Vial IV.PUSH SCH (06:07)
[2018-07-29] MEDS: Senna/Docusate Sodium 8.6/50 MG Tablet PO SCH ×2 (09:07→22:24)
[2018-07-29] MEDS: Citalopram 20 MG Tablet PO SCH (09:08)
[2018-07-29] MEDS: Metoprolol Tartrate 25 MG Tablet PO SCH ×2 (09:09→22:24)
[2018-07-29] MEDS: Enoxaparin Inj 40 MG/0.4 ML Syringe SQ SCH (09:10)
[2018-07-29] MEDS: Lisinopril 10 MG Tablet PO SCH (09:10)
[2018-07-29] MEDS: Sodium Chloride 0.9% 2 ML Flush BID IV.FLUSH SCH ×2 (09:18→22:24)
[2018-07-29] MEDS ORDERED: Lidocaine PF 1% Inj 5 ML Syringe OTHER ONE (10:32)
--- NOTE | 2018-07-29 10:58 | P.PCN ---
Date of procedure: 07/29/18 Pre-op diagnosis: Neck trauma, dysphagia Procedure: PROCEDURE PERFORMED EGD with PEG placement PROCEDURE: The procedure, risks and benefits were discussed with Patient/POA and informed consent was obtained. Anesthesia sedated Patient with Diprivan. Patient was placed in the left lateral decubitus position. EGD: The Pentax videoscope was introduced through the oropharynx and advanced to the second portion of the duodenum under direct visualization. Retroflexion was performed in the stomach. FINDINGS: The esophagus this was normal The stomach this was normal The duodenum this was normal Following the evaluation of the stomach and the duodenum the stomach was insufflated with air and the area of PEG placement was identified through indentation and transillumination the area was prepped and draped in usual fashion 5 cc of lidocaine were injected locally a small incision was made then an Angiocath was passed into the stomach through which a guidewire was passed this was retrieved with the scope into that a PEG tube was attached and pulled into place and thereafter secured in usual fashion The patient tolerated procedure well and there are no immediate complications ESTIMATED BLOOD LOSS: None SPECIMENS REMOVED: None COMPLICATIONS: None IMPRESSION: Normal EGD Successful PEG placement plan: 1. May use PEG tube for medications today 2. May start feeding tomorrow 3. May obtain nutritional consult for tube feeding 4. Flush tube with 50 cc of water every 4-6 hours 5. Always flush tube after feedings 6. Apply abdominal binder as necessary 7. Clamp G-tube after use and flush. Anesthesia: MAC Surgeon: Jorge Melgoza Condition: stable Disposition: floor
--- NOTE | 2018-07-29 11:18 | P.PNNS ---
Subjective Interval history: taking few steps with PT, sat in chair. c/o of neck pain, appears drowsy but following simple commands. Physical Exam Vital signs: Vital Signs 07/28/18 12:00 07/28/18 14:00 07/28/18 16:00 Temperature 98 F 98.3 F Pulse Rate 54 L 54 L 54 L Respiratory Rate 15 20 Blood Pressure 111/56 L 121/59 L Pulse Oximetry 100 99 07/28/18 18:00 07/28/18 20:00 07/28/18 22:00 Temperature 97.6 F Pulse Rate 62 60 54 L Respiratory Rate 11 L Blood Pressure 150/63 H Pulse Oximetry 100 07/29/18 00:00 07/29/18 02:00 07/29/18 04:00 Temperature 97.7 F 97.8 F Pulse Rate 52 L 54 L 62 Respiratory Rate 19 24 Blood Pressure 127/62 127/61 Pulse Oximetry 99 98 07/29/18 06:00 Temperature Pulse Rate 64 Respiratory Rate Blood Pressure Pulse Oximetry Intake & Output 07/28/18 07/29/18 07/29/18 18:59 06:59 18:59 Intake Total 350 / 350 1696 / 1696 200 / 200 Output Total 250 / 250 Balance 350 / 350 1446 / 1446 200 / 200 Weight 71.1 kg Intake: IV 350 / 350 1450 / 1450 Cordarone Inj 450 MG In D5W Inj 250 / 250 250 / 250 241 ML @ 1 MG/MIN 33.33 mls/hr IV.CONT TITRATE PRN Rx#: [id number] Cordarone Inj 450 MG In NS Inj 250 / 250 241 ML @ 1 MG/MIN 33.33 mls/hr IV.CONT TITRATE PRN Rx#: [id number] D5W/LR Inj 1,000 ML @ 60 mls/hr 950 / 950 IV.CONT .[id number] [facility] Rx#: [id number] Ofirmev Inj 1,000 mg In 100 ml 100 / 100 @ 400 mls/hr IV.SIG Q6H PRN Rx# :[id number] Tube Feeding 126 / 126 Anesthesia Amount 200 / 200 Other 120 / 120 Output: Urine Amount (Catheter) 250 / 250 Condom 250 / 250 Other: # Incontinent Voids 3 # Urine Diapers 3 Date of Last Bowel Movement 07/28/18 07/28/18 # Bowel Movements 1 Narrative: Opens eyes spontaneously appears drowsy Follows commands x4 extremities - Anti-gravity throughout Cervical collar in place Incision/dressing: [place] dressing clean, dry, intact took few short steps with walker and side assist - Urinary Catheter Management Coude Cath placed during this visit: yes Reason for continuing: Hourly intake/output Insertion date: 07/23/18 Insertion time: 01:42 Indwelling Urethral Catheter Cath placed during this visit: no Reason for continuing: Hourly intake/output Condom Cath placed during this visit: no Assessment and Plan - Plan 82 y/o male with Parkinson's disease, C1 arch fracture, C2 type 2 dens fracture s/p C2 odontoid screw by Dr. Currie on 07/24/18. Neurologically stable. Plan: cont current care cont maintain cervical collar ?PEG today cont PT/OT Pain control
--- NOTE | 2018-07-29 12:52 | P.PNCC ---
Subjective Brief History: [place]: This is a 82-year-old gentleman who presented to [facility] emergency room after a trip and a fall last evening. The patient's friend says that she had mopped the tile floor in front of the patient's chair, and when he got up he slipped and fell forward, hitting his head on the floor. No LOC, patient reports neck pain but denies any new numbness/ tingling/ weakness of extremities. He relates chronic numbness related to peripheral neuropathy. He also has Parkinson's disease. Workup included CT of the head was negative for any intracranial injury and CT of cervical spine reveals C1 posterior arch bilateral fracture as well as a C2 type II odontoid fracture with widening of the fracture line anteriorly. She is maintaining a cervical spinal precautions with a collar and transferred to [facility] for further management. Patient is known to have severe Parkinson's disease and is medicated appropriately. Patient will be admitted to ICU for further care Neurosurgery consult greatly appreciated 07/25/2018 Patient is awake alert and oriented and status post C2 anterior screw placement Neurologically patient is intact Hemodynamically stable Bilateral breath sounds with good inspiratory effort Abdomen soft active bowel sounds and patient is started on a diet Restart levodopa / carbodopa i.e. Sinemet for Parkinson's disease Renal function preserved Patient will require aggressive physical therapy and should be referred to the [facility] rehab Consult Dr. Eller 24 Hour Review/Hospital Course: 07/25/2018 Patient is awake alert and oriented and status post C2 anterior screw placement Neurologically patient is intact Hemodynamically stable Bilateral breath sounds with good inspiratory effort Abdomen soft active bowel sounds and patient is started on a diet Restart levodopa / carbodopa i.e. Sinemet for Parkinson's disease Renal function preserved Patient will require aggressive physical therapy and [facility] be referred [facility] re[facility] Consult Dr. Eller 07/27 Patient A. isaac last night Has been started on amiodarone and digoxin with his rate control was achieved His magnesium and potassium are within normal limits an EKG and troponin will be obtained I will consult cardiology echocardiogram will be ordered Patient will be maintained on IV fluids as he is felt he is speech assessment today he has dysphasia combination of postop dysphagia on his C1 fracture in an elderly patient and also Parkinson With this findings we will proceed with a Dobbhoff insertion to continue tube feeds and his oral medications I believe it would be advisable to obtain a GI consult for PEG after discussion with the 07/28 Patient now is in sinus rhythm He remains hemodynamically normal mental status and neuro status are unchanged Patient is a severe dysphagia combination of postsurgical trauma C1-C2 fracture and also Parkinson findings beneficial that patient receives a PEG tube She will be started on beta-isi by the cardiology service scheduled for PEG tomorrow If remains off any drips for is heart should be transferred tomorrow to the floor community worker is planning on discharge plan 07/29/2018 Patient OOB and sitting in a recliner chair. No distress noted. Plan for PEG placement today due to dysphasia No complaints offered at this time CM shows sinus rhythm -plan to transition to p.o. amiodarone, and wean drip to off. Objective Vital Signs / I&O: Vital Signs 07/28/18 14:00 07/28/18 16:00 07/28/18 18:00 Temperature 98.3 F Pulse Rate 54 L 54 L 62 Respiratory Rate 20 Blood Pressure 121/59 L Pulse Oximetry 99 07/28/18 20:00 07/28/18 22:00 07/29/18 00:00 Temperature 97.6 F 97.7 F Pulse Rate 60 54 L 52 L Respiratory Rate 11 L 19 Blood Pressure 150/63 H 127/62 Pulse Oximetry 100 99 07/29/18 02:00 07/29/18 04:00 07/29/18 06:00 Temperature 97.8 F Pulse Rate 54 L 62 64 Respiratory Rate 24 Blood Pressure 127/61 Pulse Oximetry 98 Intake & Output 07/28/18 07/29/18 07/29/18 18:59 06:59 18:59 Intake Total 350 / 350 1696 / 1696 200 / 200 Output Total 250 / 250 Balance 350 / 350 1446 / 1446 200 / 200 Weight 71.1 kg Intake: IV 350 / 350 1450 / 1450 Cordarone Inj 450 MG In D5W Inj 250 / 250 250 / 250 241 ML @ 1 MG/MIN 33.33 mls/hr IV.CONT TITRATE PRN Rx#: [id number] Cordarone Inj 450 MG In NS Inj 250 / 250 241 ML @ 1 MG/MIN 33.33 mls/hr IV.CONT TITRATE PRN Rx#: [id number] D5W/LR Inj 1,000 ML @ 60 mls/hr 950 / 950 IV.CONT .[id number] [facility] Rx#: [id number] Ofirmev Inj 1,000 mg In 100 ml 100 / 100 @ 400 mls/hr IV.SIG Q6H PRN Rx# :[id number] Tube Feeding 126 / 126 Anesthesia Amount 200 / 200 Other 120 / 120 Output: Urine Amount (Catheter) 250 / 250 Condom 250 / 250 Other: # Incontinent Voids 3 # Urine Diapers 3 Date of Last Bowel Movement 07/28/18 07/28/18 # Bowel Movements 1 Result Diagrams: 07/29/18 03:10 07/28/18 03:59 Disinhibition Score: 14.00 Aggression Score: 14.00 Lability Score: 14.00 Agitated Behavior Total Score: 14 Objective Remarks: GENERAL: This is a 82-year-old male OOB and sitting in a recliner chair. No distress noted. SKIN: Warm and dry. HEAD: Atraumatic. Normocephalic. EYES: PERRLA ENT: No nasal bleeding or discharge. Mucous membranes pink and moist. NECK: [place] J collar in place. Trachea midline. No JVD. CARDIOVASCULAR: Regular rate and rhythm. RESPIRATORY: No accessory muscle use. Lungs are clear to auscultation. Breath sounds equal bilaterally. No distress or dyspnea. GASTROINTESTINAL: BS + x 4 quads. Abdomen soft, non-tender, nondistended. MUSCULOSKELETAL: Extremities without cyanosis, or edema. + peripheral pulses x 4 extremities. Warm with good capillary refill and sensation. MAEW. NEUROLOGICAL: Awake and alert. Normal speech and pattern. Assessment and Plan Plan: [place]: This is an 82-year-old male who sustained a mechanical fall. He slipped on a wet floor and fell from a standing position where he struck his head on the tile. No LOC. INJURIES: C1 dens fx C2 fx PMHx: HTN. COPD. Parkinsons. Dysphasia Procedures: 07/24: Anterior cervical C2 odontoid screw placement 07/29: Plan for PEG placement today* Consults: Neurosurgery. Hospitalist. Cardiology. GI. Rehab medicine. Isael nurse liaison. Case management. Diet: N.p.o. per speech. Jevity at 50 cc/HR Via Dobbhoff. Pulmonary: Encourage good pulmonary toileting. IS at bedside and pt encouraged to use. Rationale for use explained to patient, and verbalized understanding. PAIN Management: [place] 10 mg q4h. Morphine 2 mg q 2h. IV Ofirmev. Activity: OOB. PT and OT ordered. GI prophylaxis: IV Protonix 40 mg. Bowel regimen: Johanny-colace. MOM. Lactulose PRN. Senna PRN. Bisacodyl PRN. . LBM : 07/28 DVT prophylaxis: Mechanical VTE with SCDs. Chemical management with Lovenox 40 mg QD SQ. ASA 81 mg daily. DC Planning: Case management consulted for assistance with final discharge disposition. PT is recommending rehab. Emotional support provided to patient at bedside and plan of care discussed. Discussed with RN at bedside. Discussed pt condition and plan of care with collaborating trauma surgeon. Patient is hemodynamically stable and therefore may be transferred to the med/ surg floor once a Cordarone drip DC'd. The trauma team will round each day, and evaluate plan of care on a daily basis. C1 dens fx C2 fx Neurosurgery consulted and assisting in management and care 07/24: Anterior cervical C2 odontoid screw placement Supportive care Pain management Encourage out of bed PT and OT ordered Fern[place] J collar at all times Bowel regimen Lovenox for DVT prophylaxis Parkinson's disease Dysphasia Continue home medications Baseline dysphasia due to Parkinson's N.p.o. Speech evaluation Jevity at 50 cc/HR Consult to GI for PEG placement Plan for PEG placement today A. fib RVR HTN Home medications resumed Norvasc 10 mg QD. HCTZ 12.5 mg QD. Prinivil 10 mg QD. Catapress 0.1 mg q6h. Trandate PRN. 07/26: Patient went into A. fib RVR Cardiology consulted Amiodarone drip -patient has now converted to normal sinus rhythm Begin amiodarone p.o. Stool wean Cordarone drip to off by 2 PM. 07/27: Echo - Normal left ventricular size. Wall thickness is normal. The left ventricular systolic function is normal with an estimated ejection fraction in the range of 55-60%. There is trace tricuspid valve regurgitation. The estimated pulmonary arterial pressure is 28 mmHg.
--- NOTE | 2018-07-29 14:46 | P.PNCA ---
Subjective Interval history: alert in nad Medications and Allergies Active Medications: Active Medications Hydrocodone Bitart/Acetaminophen ([place] 10/325) 1 tab PO Q4H PRN PRN Reason: Pain > 3 Last Admin: 07/24/18 20:49 Dose: 1 tab Al Hydrox/Mg Hydrox/Simethicone (Mag-Al Plus Susp Liq) 30 ml PO Q6H PRN PRN Reason: DYSPEPSIA Al Hydroxide/Mg Hydroxide (Milk Of Magnesia Liq) 30 ml PO Q12H [facility] Last Admin: 07/29/18 09:10 Dose: Not Given Albuterol (Duoneb Neb (Prn)) 1 ampul NEB Q2HR NEB PRN PRN Reason: SHORTNESS OF BREATH Amiodarone HCl (Cordarone) 200 mg PO Q12HR [facility] Aspirin (Ecotrin) 81 mg PO DAILY [facility] Last Admin: 07/29/18 09:18 Dose: Not Given Bisacodyl (Dulcolax Supp) 10 mg RECTAL DAILY PRN PRN Reason: constipation Carbidopa/Levodopa (Sinemet 25/100 Mg) 1 tab PO BID@1200,1600 [facility] Last Admin: 07/29/18 14:25 Dose: 1 tab Carbidopa/Levodopa (Sinemet 25/100 Mg) 2 tab PO BID@0800,2000 [facility] Last Admin: 07/29/18 09:13 Dose: 2 tab Cetirizine HCl (Zyrtec) 10 mg PO HS [facility] Last Admin: 07/28/18 20:11 Dose: 10 mg Citalopram Hydrobromide (Celexa) 10 mg PO DAILY [facility] Last Admin: 07/29/18 09:08 Dose: 10 mg Clonidine HCl (Catapres) 0.1 mg PO Q6H PRN PRN Reason: HYPERTENSION Enalaprilat (Vasotec Inj) 1.25 mg IV.PUSH Q6H PRN PRN Reason: SBP>180, DBP>95 Enoxaparin Sodium (Lovenox Inj) 40 mg SQ DAILY [facility] Last Admin: 07/29/18 09:10 Dose: Not Given Hydrochlorothiazide (Microzide) 12.5 mg PO DAILY [facility] Last Admin: 07/29/18 09:08 Dose: 12.5 mg Acetaminophen (Ofirmev Inj) 1,000 mg in 100 mls @ 400 mls/hr IV.SIG Q6H PRN PRN Reason: PAIN SCALE 1 TO 10 Last Infusion: 07/28/18 13:06 Dose: Infused Magnesium Sulfate 2 gm/ Sodium (Chloride) 100 mls @ 100 mls/hr IV.SIG UNSCH PRN PRN Reason: MAGNESIUM LESS THAN 2 Last Infusion: 07/27/18 02:04 Dose: Infused Potassium Chloride (Kcl 20 Meq Premix Inj) 20 meq in 100 mls @ 50 mls/hr IV.SIG UNSCH PRN PRN Reason: POTASSIUM LESS THAN 4 Calcium Gluconate 1 gm/ Sodium (Chloride) 110 mls @ 110 mls/hr IV.SIG UNSCH PRN PRN Reason: SEE LABEL COMMENTS Amiodarone HCl 450 mg/ (Dextrose) 250 mls @ 33.33 mls/hr IV.CONT TITRATE PRN; Protocol PRN Reason: Per Protocol Last Titration: 07/29/18 13:30 Dose: 0 mg/min, 0 mls/hr Magnesium Sulfate 2 gm/ Sodium (Chloride) 100 mls @ 50 mls/hr IV.SIG UNSCH PRN PRN Reason: For Magnesium 1.2 - 1.6 mg/dL Last Infusion: 07/27/18 02:25 Dose: Infused Potassium Chloride (Kcl 40 Meq Premix Inj) 40 meq in 100 mls @ 25 mls/hr IV.SIG Q2H PRN PRN Reason: For Potassium 2.8 - 3.2 mEq/L Potassium Chloride (Kcl 20 Meq Premix Inj) 20 meq in 100 mls @ 50 mls/hr IV.SIG Q2H PRN PRN Reason: For Potassium 3.3 - 3.5 mEq/L Potassium Chloride (Kcl 40 Meq Premix Inj) 40 meq in 100 mls @ 25 mls/hr IV.SIG UNSCH PRN PRN Reason: For Potassium 3.3 - 3.5 mEq/L Potassium Chloride (Kcl 20 Meq Premix Inj) 20 meq in 100 mls @ 50 mls/hr IV.SIG Q2H PRN PRN Reason: For Potassium 2.8 - 3.2 mEq/L Potassium Phosphate 30 mmol/ (Sodium Chloride) 260 mls @ 42 mls/hr IV.SIG UNSCH PRN PRN Reason: SEE LABEL COMMENTS Sodium Phosphate 30 mmol/ (Sodium Chloride) 260 mls @ 42 mls/hr IV.SIG UNSCH PRN PRN Reason: For Phosphorus < 2.5 mg/dL Magnesium Sulfate 4 gm/ Sodium (Chloride) 100 mls @ 50 mls/hr IV.SIG UNSCH PRN PRN Reason: For Magnesium 0.9 - 1.1 mg/dL Dextrose/Lactated Ringer's (D5w/Lr Inj) 1,000 mls @ 60 mls/hr IV.CONT .[id number] [facility] Last Admin: 07/28/18 20:38 Dose: 60 mls/hr Cefazolin Sodium 1,000 mg/ (Sodium Chloride) 100 mls @ 200 mls/hr IV.SIG DRILLING INSPECTOR [facility] Stop: 07/31/18 09:44 Last Admin: 07/29/18 09:53 Dose: 200 mls/hr Labetalol HCl (Trandate Inj) 10 mg IV.PUSH Q1H PRN PRN Reason: SYS BP GREATER THAN 170 MMHG Lactulose (Lactulose Liq) 30 ml PO DAILY PRN PRN Reason: SEVERE CONSITIPATION Lisinopril (Prinivil) 10 mg PO DAILY [facility] Last Admin: 07/29/18 09:10 Dose: 10 mg Magnesium Oxide (Mag-Ox) 800 mg PO UNSCH PRN PRN Reason: For Magnesium 1.2 - 1.6 mg/dL Menthol ([place]) 1 lozenge BUCCAL UNSCH PRN PRN Reason: SORE THROAT Metoprolol Tartrate (Lopressor) 12.5 mg PO BID [facility] Last Admin: 07/29/18 09:09 Dose: 12.5 mg Miscellaneous (Pill Splitter) 1 each [facility] Morphine Sulfate (Morphine Inj) 2 mg IV.PUSH Q2H PRN PRN Reason: breakthrough pain Last Admin: 07/29/18 13:35 Dose: 2 mg Ondansetron HCl (Zofran Inj) 4 mg IV.PUSH Q6H PRN PRN Reason: NAUSEA OR VOMITING Pantoprazole Sodium (Protonix Inj) 40 mg IV.PUSH Q24H [facility] Last Admin: 07/29/18 06:07 Dose: 40 mg Potassium Bicarb/Potassium Chloride (K-Lyte Cl Eff) 50 meq PO UNSCH PRN PRN Reason: For Potassium 3.3 - 3.5 mEq/L Potassium Phosphate (K-Phos Original) 2,000 mg PO Q4H PRN PRN Reason: Phosphorus Less Than 2.5 mg/dL Potassium Phosphate (K-Phos Original) 2,000 mg PO UNSCH PRN PRN Reason: SEE LABEL COMMENTS Senna/Docusate Sodium (Johanny-Colace) 1 tab PO BID [facility] Last Admin: 07/29/18 09:07 Dose: 1 tab Sennosides (Senokot) 17.2 mg PO Q12H PRN PRN Reason: Moderate Constipation Sodium Chloride (Ns Flush) 2 ml IV.FLUSH BID [facility] Last Admin: 07/29/18 09:18 Dose: 2 ml Sodium Chloride (Ns Flush) 2 ml IV.FLUSH PRN PRN PRN Reason: FLUSH AFTER USING IV ACCESS Allergies Allergy/AdvReac Type Severity Reaction Status Date / Time simvastatin Allergy Intermediate RASH Verified 07/22/18 22:02 haloperidol [From Haldol] Allergy Hallucinati Verified 07/22/18 22:05 ons prochlorperazine Allergy Anaphylaxis Verified 07/22/18 22:05 [From Compazine] Home Medications Medication Instructions Recorded Confirmed Type amlodipine 10 mg PO DAILY 07/22/18 07/22/18 History aspirin 81 mg PO DAILY 07/22/18 07/22/18 History benazepril-hydrochlorothiazide 1 tab PO DAILY 07/22/18 07/22/18 History carbidopa-levodopa 2 tab PO Q8H 07/22/18 07/22/18 History cetirizine 10 mg PO HS 07/22/18 07/22/18 History citalopram 10 mg PO DAILY 07/22/18 07/22/18 History ibuprofen 800 mg PO TID PRN 07/22/18 07/22/18 History Physical Exam Vital signs: Vital Signs 07/28/18 16:00 07/28/18 18:00 07/28/18 20:00 Temperature 98.3 F 97.6 F Pulse Rate 54 L 62 60 Respiratory Rate 20 11 L Blood Pressure 121/59 L 150/63 H Pulse Oximetry 99 100 07/28/18 22:00 07/29/18 00:00 07/29/18 02:00 Temperature 97.7 F Pulse Rate 54 L 52 L 54 L Respiratory Rate 19 Blood Pressure 127/62 Pulse Oximetry 99 07/29/18 04:00 07/29/18 06:00 07/29/18 14:25 Temperature 97.8 F Pulse Rate 62 64 Respiratory Rate 24 18 Blood Pressure 127/61 Pulse Oximetry 98 Intake & Output 07/28/18 07/29/18 07/29/18 18:59 06:59 18:59 Intake Total 350 / 350 1696 / 1696 200 / 200 Output Total 250 / 250 Balance 350 / 350 1446 / 1446 200 / 200 Weight 71.1 kg Intake: IV 350 / 350 1450 / 1450 Cordarone Inj 450 MG In D5W Inj 250 / 250 250 / 250 241 ML @ 1 MG/MIN 33.33 mls/hr IV.CONT TITRATE PRN Rx#: [id number] Cordarone Inj 450 MG In NS Inj 250 / 250 241 ML @ 1 MG/MIN 33.33 mls/hr IV.CONT TITRATE PRN Rx#: [id number] D5W/LR Inj 1,000 ML @ 60 mls/hr 950 / 950 IV.CONT .[id number] [facility] Rx#: [id number] Ofirmev Inj 1,000 mg In 100 ml 100 / 100 @ 400 mls/hr IV.SIG Q6H PRN Rx# :[id number] Tube Feeding 126 / 126 Anesthesia Amount 200 / 200 Other 120 / 120 Output: Urine Amount (Catheter) 250 / 250 Condom 250 / 250 Other: # Incontinent Voids 3 # Urine Diapers 3 Date of Last Bowel Movement 07/28/18 07/28/18 # Bowel Movements 1 - Urinary Catheter Management Coude Cath placed during this visit: yes Reason for continuing: Hourly intake/output Insertion date: 07/23/18 Insertion time: 01:42 Indwelling Urethral Catheter Cath placed during this visit: no Reason for continuing: Hourly intake/output Condom Cath placed during this visit: no Results 07/29/18 03:10 07/28/18 03:59 Cardiac Enzymes 07/27/18 Range/Units 19:09 CK-MB (CK-2) 5.4 H (0.5-3.6) ng/mL Troponin I Less than 0.02 L (0.02-0.05) ng/mL CBC 07/29/18 Range/Units 03:10 WBC 6.8 (4.0-11.0) th/mm3 RBC 4.30 L (4.50-5.90) mil/mm3 Hgb 12.9 L (13.0-17.0) gm/dL Hct 37.9 L (39.0-51.0) % Plt Count 242 (150-450) th/mm3 Comprehensive Metabolic Panel 07/28/18 Range/Units 03:59 Sodium 140 (136-145) meq/L Potassium 3.8 (3.5-5.1) meq/L Chloride 100 (98-107) meq/L Carbon Dioxide 32.7 H (21.0-32.0) meq/L BUN 18 (7-18) mg/dL Creatinine 0.67 (0.60-1.30) mg/dL Calcium 8.4 L (8.5-10.1) mg/dL Intake and Output 07/28/18 07/29/18 07/29/18 22:59 06:59 14:59 Intake Total 1103 / 1103 593 / 593 200 / 200 Output Total 250 / 250 Balance 853 / 853 593 / 593 200 / 200 Intake: IV 950 / 950 500 / 500 Cordarone Inj 450 MG In D5W Inj 250 / 250 241 ML @ 1 MG/MIN 33.33 mls/hr IV.CONT TITRATE PRN Rx#: [id number] Cordarone Inj 450 MG In NS Inj 250 / 250 241 ML @ 1 MG/MIN 33.33 mls/hr IV.CONT TITRATE PRN Rx#: [id number] D5W/LR Inj 1,000 ML @ 60 mls/hr 950 / 950 IV.CONT .[id number] [facility] Rx#: [id number] Tube Feeding 33 / 33 93 / 93 Anesthesia Amount 200 / 200 Other 120 / 120 Output: Urine Amount (Catheter) 250 / 250 Condom 250 / 250 Other: # Incontinent Voids 2 3 # Urine Diapers 3 Date of Last Bowel Movement 07/28/18 07/28/18 # Bowel Movements 1 Weight 71.1 kg - Imaging and Cardiology Imaging: Impressions Abdomen X-Ray 07/27/18 21:54 CONCLUSION: Dobbhoff feeding tube tip is in the mid stomach. Assessment and Plan - Assessment (1) Atrial fibrillation Code(s): I48.91 - Unspecified atrial fibrillation Status: Acute (2) C1 cervical fracture Code(s): S12.000A - Unspecified displaced fracture of first cervical vertebra, initial encounter for closed fracture Status: Acute (3) Closed dens fracture Code(s): S12.100A - Unspecified displaced fracture of second cervical vertebra, initial encounter for closed fracture Status: Acute (4) Fall from standing Code(s): W19.XXXA - Unspecified fall, initial encounter Status: Acute (5) Type II dens fracture of second cervical vertebra Code(s): S12.110A - Anterior displaced Type II dens fracture, initial encounter for closed fracture Status: Acute (6) Parkinson disease Code(s): G20 - Parkinson's disease Status: Acute - Plan 1.) PAF - in nsr on monitor, on iv amio, i advised patient to take coumadin or noac if/when cleared by Dr Ephraim Roth, due to [id number] score = 2, to lower risk of life threatening or debilitating cva, he understands and is undecided, nurse to ask Dr Ephraim Roth if patient can start coumadin or noac and then document in nursing notes in computer, d/w nurse 07/29/18 @ bedside (2) C1 cervical fracture Qualifiers: Encounter type: initial encounter Fracture type: closed Fracture morphology : posterior arch Fracture alignment: displaced Qualified Code(s): S12.030A - Displaced posterior arch fracture of first cervical vertebra, initial encounter for closed fracture (5) Type II dens fracture of second cervical vertebra Qualifiers: Encounter type: initial encounter Fracture type: closed Fracture alignment: posteriorly displaced Qualified Code(s): S12.111A - Posterior displaced Type II dens fracture, initial encounter for closed fracture
--- NOTE | 2018-07-29 14:55 | P.PNCC ---
Subjective Brief History: [place]: This is a 82-year-old gentleman who presented to [place] emergency room after a trip and a fall last evening. The patient's friend says that she had mopped the tile floor in front of the patient's chair, and when he got up he slipped and fell forward, hitting his head on the floor. No LOC, patient reports neck pain but denies any new numbness/ tingling/ weakness of extremities. He relates chronic numbness related to peripheral neuropathy. He also has Parkinson's disease. Workup included CT of the head was negative for any intracranial injury and CT of cervical spine reveals C1 posterior arch bilateral fracture as well as a C2 type II odontoid fracture with widening of the fracture line anteriorly. She is maintaining a cervical spinal precautions with a collar and transferred to [facility] for further management. Patient is known to have severe Parkinson's disease and is medicated appropriately. Patient will be admitted to ICU for further care Neurosurgery consult greatly appreciated 07/25/2018 Patient is awake alert and oriented and status post C2 anterior screw placement Neurologically patient is intact Hemodynamically stable Bilateral breath sounds with good inspiratory effort Abdomen soft active bowel sounds and patient is started on a diet Restart levodopa / carbodopa i.e. Sinemet for Parkinson's disease Renal function preserved Patient will require aggressive physical therapy and should be referred to the [facility] rehab Consult Dr. Eller 24 Hour Review/Hospital Course: 07/25/2018 Patient is awake alert and oriented and status post C2 anterior screw placement Neurologically patient is intact Hemodynamically stable Bilateral breath sounds with good inspiratory effort Abdomen soft active bowel sounds and patient is started on a diet Restart levodopa / carbodopa i.e. Sinemet for Parkinson's disease Renal function preserved Patient will require aggressive physical therapy and [facility] be [facility] re[facility] Consult Dr. Eller 07/27 Patient A. isaac last night Has been started on amiodarone and digoxin with his rate control was achieved His magnesium and potassium are within normal limits an EKG and troponin will be obtained I will consult cardiology echocardiogram will be ordered Patient will be maintained on IV fluids as he is felt he is speech assessment today he has dysphasia combination of postop dysphagia on his C1 fracture in an elderly patient and also Parkinson With this findings we will proceed with a Dobbhoff insertion to continue tube feeds and his oral medications I believe it would be advisable to obtain a GI consult for PEG after discussion with the 07/28 Patient now is in sinus rhythm He remains hemodynamically normal mental status and neuro status are unchanged Patient is a severe dysphagia combination of postsurgical trauma C1-C2 fracture and also Parkinson findings beneficial that patient receives a PEG tube She will be started on beta-isi by the cardiology service scheduled for PEG tomorrow If remains off any drips for is heart should be transferred tomorrow to the floor shafting worker is planning on discharge plan 07/29/2018 Patient OOB and sitting in a recliner chair. No distress noted. Plan for PEG placement today due to dysphasia No complaints offered at this time CM shows sinus rhythm -plan to transition to p.o. amiodarone, and wean drip to off. Patient will not be on any anticoagulants at this point because he is of a high risk of fall and has converted to sinus rhythm without problem In this particular situation the risk benefit ratio is such that anticoagulants of probably to be considered but we will abstain from for the time being If patient goes back into supraventricular arrhythmias or amiodarone is not sufficient to control and then perhaps this would be appropriate Objective Vital Signs / I&O: Vital Signs 07/28/18 16:00 07/28/18 18:00 07/28/18 20:00 Temperature 98.3 F 97.6 F Pulse Rate 54 L 62 60 Respiratory Rate 20 11 L Blood Pressure 121/59 L 150/63 H Pulse Oximetry 99 100 07/28/18 22:00 07/29/18 00:00 07/29/18 02:00 Temperature 97.7 F Pulse Rate 54 L 52 L 54 L Respiratory Rate 19 Blood Pressure 127/62 Pulse Oximetry 99 07/29/18 04:00 07/29/18 06:00 07/29/18 14:25 Temperature 97.8 F Pulse Rate 62 64 Respiratory Rate 24 18 Blood Pressure 127/61 Pulse Oximetry 98 Intake & Output 07/28/18 07/29/18 07/29/18 18:59 06:59 18:59 Intake Total 350 / 350 1696 / 1696 200 / 200 Output Total 250 / 250 Balance 350 / 350 1446 / 1446 200 / 200 Weight 71.1 kg Intake: IV 350 / 350 1450 / 1450 Cordarone Inj 450 MG In D5W Inj 250 / 250 250 / 250 241 ML @ 1 MG/MIN 33.33 mls/hr IV.CONT TITRATE PRN Rx#: [id number] Cordarone Inj 450 MG In NS Inj 250 / 250 241 ML @ 1 MG/MIN 33.33 mls/hr IV.CONT TITRATE PRN Rx#: [id number] D5W/LR Inj 1,000 ML @ 60 mls/hr 950 / 950 IV.CONT .[id number] [facility] Rx#: [id number] Ofirmev Inj 1,000 mg In 100 ml 100 / 100 @ 400 mls/hr IV.SIG Q6H PRN Rx# :[id number] Tube Feeding 126 / 126 Anesthesia Amount 200 / 200 Other 120 / 120 Output: Urine Amount (Catheter) 250 / 250 Condom 250 / 250 Other: # Incontinent Voids 3 # Urine Diapers 3 Date of Last Bowel Movement 07/28/18 07/28/18 # Bowel Movements 1 Result Diagrams: 07/29/18 03:10 07/28/18 03:59 Disinhibition Score: 14.00 Aggression Score: 14.00 Lability Score: 14.00 Agitated Behavior Total Score: 14 Assessment and Plan Plan: [place]: This is an 82-year-old male who sustained a mechanical fall. He slipped on a wet floor and fell from a standing position where he struck his head on the tile. No LOC. INJURIES: C1 dens fx C2 fx PMHx: HTN. COPD. Parkinsons. Dysphasia Procedures: 07/24: Anterior cervical C2 odontoid screw placement 07/29: Plan for PEG placement today* Consults: Neurosurgery. Hospitalist. Cardiology. GI. Rehab medicine. [place] nurse liaison. Case management. Diet: N.p.o. per speech. Jevity at 50 cc/HR Via Dobbhoff. Pulmonary: Encourage good pulmonary toileting. IS at bedside and pt encouraged to use. Rationale for use explained to patient, and verbalized understanding. PAIN Management: [place] 10 mg q4h. Morphine 2 mg q 2h. IV Ofirmev. Activity: OOB. PT and OT ordered. GI prophylaxis: IV Protonix 40 mg. Bowel regimen: Johanny-colace. MOM. Lactulose PRN. Senna PRN. Bisacodyl PRN. . LBM : 07/28 DVT prophylaxis: Mechanical VTE with SCDs. Chemical management with Lovenox 40 mg QD SQ. ASA 81 mg daily. DC Planning: Case management consulted for assistance with final discharge disposition. PT is recommending rehab. Emotional support provided to patient at bedside and plan of care discussed. Discussed with RN at bedside. Discussed pt condition and plan of care with collaborating trauma surgeon. Patient is hemodynamically stable and therefore may be transferred to the med/ surg floor once a Cordarone drip DC'd. The trauma team will round each day, and evaluate plan of care on a daily basis. C1 dens fx C2 fx Neurosurgery consulted and assisting in management and care 07/24: Anterior cervical C2 odontoid screw placement Supportive care Pain management Encourage out of bed PT and OT ordered [place] J collar at all times Bowel regimen Lovenox for DVT prophylaxis Parkinson's disease Dysphasia Continue home medications Baseline dysphasia due to Parkinson's N.p.o. Speech evaluation Jevity at 50 cc/HR Consult to GI for PEG placement Plan for PEG placement today A. fib RVR HTN Home medications resumed Norvasc 10 mg QD. HCTZ 12.5 mg QD. Prinivil 10 mg QD. Catapress 0.1 mg q6h. Trandate PRN. 07/26: Patient went into A. fib RVR Cardiology consulted Amiodarone drip -patient has now converted to normal sinus rhythm Begin amiodarone p.o. Stool wean Cordarone drip to off by 2 PM. 07/27: Echo - Normal left ventricular size. Wall thickness is normal. The left ventricular systolic function is normal with an estimated ejection fraction in the range of 55-60%. There is trace tricuspid valve regurgitation. The estimated pulmonary arterial pressure is 28 mmHg.
[2018-07-29] MEDS: Dextrose 5%/Lactated Ringer's 1,000 ML IV.CONT SCH (17:39)
--- NOTE | 2018-07-29 19:48 | P.PNIM ---
Subjective Interval history: Patient does not appear to be in any acute distress. He is responding to questions appropriately. He appears more awake than he did on previous examinations. Physical Exam Vital signs: Vital Signs 07/28/18 20:00 07/28/18 22:00 07/29/18 00:00 Temperature 97.6 F 97.7 F Pulse Rate 60 54 L 52 L Respiratory Rate 11 L 19 Blood Pressure 150/63 H 127/62 Pulse Oximetry 100 99 07/29/18 02:00 07/29/18 04:00 07/29/18 06:00 Temperature 97.8 F Pulse Rate 54 L 62 64 Respiratory Rate 24 Blood Pressure 127/61 Pulse Oximetry 98 07/29/18 08:00 07/29/18 10:00 07/29/18 12:00 Temperature 98.0 F 97.9 F Pulse Rate 56 L 56 L 54 L Respiratory Rate 13 10 L Blood Pressure 129/57 L 133/66 Pulse Oximetry 100 100 07/29/18 14:00 07/29/18 14:25 07/29/18 16:00 Temperature 97.7 F Pulse Rate 58 L 60 Respiratory Rate 18 9 L Blood Pressure 113/56 L Pulse Oximetry 97 07/29/18 18:00 Temperature Pulse Rate 64 Respiratory Rate Blood Pressure Pulse Oximetry Intake & Output 07/29/18 07/29/18 07/30/18 06:59 18:59 06:59 Intake Total 1696 / 1696 1300 / 1300 Output Total 250 / 250 Balance 1446 / 1446 1300 / 1300 Weight 71.1 kg Intake: IV 1450 / 1450 1100 / 1100 Cordarone Inj 450 MG In D5W Inj 250 / 250 241 ML @ 1 MG/MIN 33.33 mls/hr IV.CONT TITRATE PRN Rx#: [id number] Cordarone Inj 450 MG In NS Inj 250 / 250 241 ML @ 1 MG/MIN 33.33 mls/hr IV.CONT TITRATE PRN Rx#: [id number] D5W/LR Inj 1,000 ML @ 60 mls/hr 950 / 950 1000 / 1000 IV.CONT .[id number] [facility] Rx#: [id number] Ancef Inj 1,000 MG In NS Inj 100 / 100 100 ML @ 200 mls/hr IV.SIG FOOD SAFETY COORDINATOR [facility] Rx#:[id number] Tube Feeding 126 / 126 Anesthesia Amount 200 / 200 Other 120 / 120 Output: Urine Amount (Catheter) 250 / 250 Condom 250 / 250 Other: # Incontinent Voids 3 # Urine Diapers 3 Date of Last Bowel Movement 07/28/18 07/28/18 # Bowel Movements 1 Narrative: General patient in no acute distress HEENT extraocular movements are intact, nickel sized wound over the top of the patient's head scabbing over. C-collar in place. Cardiovascular S1-S2 audible, RRR, no murmurs rubs or gallops Respiratory clear to auscultation bilaterally Abdomen soft, nontender, nondistended, PEG tube in place Extremities no edema 2+ distal pulses in bilateral upper and lower extremities Neuro patient can move all 4 extremities sensation is intact bilaterally - Urinary Catheter Management Coude Cath placed during this visit: yes Reason for continuing: Hourly intake/output Insertion date: 07/23/18 Insertion time: 01:42 Indwelling Urethral Catheter Cath placed during this visit: no Reason for continuing: Hourly intake/output Condom Cath placed during this visit: no Results - Labs CBC & Chem 7: 07/29/18 03:10 07/28/18 03:59 Laboratory Results - last 24 hr 07/29/18 07/29/18 03:10 03:10 WBC 6.8 RBC 4.30 L Hgb 12.9 L Hct 37.9 L MCV 88.1 MCH 30.0 MCHC 34.1 RDW 13.7 Plt Count 242 MPV 8.4 Blood Type O Positive Blood Type Recheck Required Antibody Screen Negative Assessment and Plan - Plan 82-year-old male with Parkinson's disease admitted to the trauma service after traumatic fall where he sustained a C1 bilateral posterior arch fracture in the C2 odontoid fracture. The patient was under the care of neurosurgery as well as the trauma service. This morning he was found to have what appears to be atrial flutter with rapid ventricular rate. Paroxysmal atrial fibrillation Heart rate is currently under control. The patient is now in normal sinus rhythm. The patient was given 2 doses of digoxin and was started on an amiodarone drip yesterday. Amiodarone p.o. started today. Cardiology evaluated the patient and recommends starting the patient on anticoagulation as he has an elevated chads vasc score. Patient will be started on a beta-isi. Twelve-lead EKG shows normal sinus rhythm no acute ST segment or T wave changes. The patient is asymptomatic no complaints of chest pain or palpitations. Electrolytes within normal limits today. Continue to monitor electrolytes. TSH within normal limits. C1 bilateral posterior arch and C2 type II odontoid fracture: Neurosurgery following. Patient is status post anterior cervical C2 odontoid screw placement Routine postoperative care per neurosurgery. C-collar in place. Early PT Once the patient is cleared by neurosurgery for starting anticoagulation we will discussed with the patient and his family again as they are currently on's decided on anticoagulant. Chronic Parkinson's disease Continue on his Sinemet carbidopalevodopa. Continue current management. Patient has worsening dysphagia. The patient underwent PEG tube placement today. Nutrition consult will be placed today. Chronic peripheral neuropathy: Fall risk. Continue PT Hypertension on amlodipine, benazepril hydrochlorothiazide. Depression on citalopram
[2018-07-29] MEDS ORDERED: Influenza (Quadrivalent) Vaccine 0.5 ML Syringe IM ONE (20:00)
[2018-07-29] MEDS: Amiodarone 200 MG Tablet PO SCH (22:24)
[2018-07-30 05:04] LABS: Baso % (Auto) 0.2 % (0.0-2.0); Eos # (Auto) 0.1 th/mm3 (0.0-0.4); Eos % (Auto) 0.7 % (0.0-4.0); Hematocrit 37.8 % (39.0-51.0); Hemoglobin 13.2 gm/dL (13.0-17.0); Lymph # (Auto) 0.5 th/mm3 (1.0-4.8); Mean Corpuscular Hemoglobin 30.2 pg (27.0-34.0); Mean Corpuscular Volume 86.1 fL (80.0-100.0); Mean Platelet Volume 8.2 fL (7.0-11.0); Mono # (Auto) 0.6 th/mm3 (0.0-0.9); Mono % (Auto) 5.4 % (0.0-8.0); Neut # (Auto) 10.7 th/mm3 (1.8-7.7); Neut % (Auto) 89.7 % (16.0-70.0); Platelet Count 251 th/mm3 (150-450); Red Blood Count 4.39 mil/mm3 (4.50-5.90); Red Cell Distribution Width 13.6 % (11.6-17.2); White Blood Count 11.9 th/mm3 (4.0-11.0)
[2018-07-30 05:22] LABS: Albumin 3.3 g/dL (3.4-5.0); Anion Gap 9 meq/L (5-15); Aspartate Aminotransferase 17 U/L (15-37); Blood Urea Nitrogen 15 mg/dL (7-18); Carbon Dioxide 32.4 meq/L (21.0-32.0); Chloride 96 meq/L (98-107); Glomerular Filtration Rate Greater Than 89 mL/min (>89); Glucose,Random 126 mg/dL (74-106); Magnesium 2.1 mg/dL (1.5-2.5); Potassium 4.1 meq/L (3.5-5.1); Sodium 137 meq/L (136-145)
[2018-07-30 05:23] LABS: Alanine Aminotransferase 13 U/L (12-78)
[2018-07-30 05:26] LABS: Alkaline Phosphatase 82 U/L (45-117); Total Protein 6.6 g/dL (6.4-8.2)
[2018-07-30] MEDS: Pantoprazole Inj 40 MG Vial IV.PUSH SCH (06:17)
[2018-07-30] MEDS: Dextrose 5%/Lactated Ringer's 1,000 ML IV.CONT SCH (06:21)
[2018-07-30] MEDS ORDERED: Acetaminophen-HYDROcodone 325/7.5 Liq 15 ML UDC NG/OG PRN (07:52)
[2018-07-30] MEDS ORDERED: traMADol/Acetaminophen 37.5/325 MG Tablet PO PRN (07:58)
[2018-07-30] MEDS: Metoprolol Tartrate 25 MG Tablet PO SCH (09:18)
[2018-07-30] MEDS: Citalopram 20 MG Tablet PO SCH (09:18)
[2018-07-30] MEDS: Lisinopril 10 MG Tablet PO SCH (09:19)
[2018-07-30] MEDS: Amiodarone 200 MG Tablet PO SCH (09:19)
[2018-07-30] MEDS: Senna/Docusate Sodium 8.6/50 MG Tablet PO SCH (09:19)
[2018-07-30] MEDS: Enoxaparin Inj 40 MG/0.4 ML Syringe SQ SCH (09:20)
[2018-07-30] MEDS: Sodium Chloride 0.9% 2 ML Flush BID IV.FLUSH SCH (09:32)
--- NOTE | 2018-07-30 09:58 | P.PNNS ---
Subjective Interval history: PEG tube yesterday Physical Exam Vital signs: Vital Signs 07/29/18 10:00 07/29/18 12:00 07/29/18 14:00 Temperature 97.9 F Pulse Rate 56 L 54 L 58 L Respiratory Rate 10 L Blood Pressure 133/66 Pulse Oximetry 100 07/29/18 14:25 07/29/18 16:00 07/29/18 18:00 Temperature 97.7 F Pulse Rate 60 64 Respiratory Rate 18 9 L Blood Pressure 113/56 L Pulse Oximetry 97 07/29/18 20:00 07/29/18 20:40 07/29/18 22:00 Temperature 97.9 F Pulse Rate 66 70 Respiratory Rate 14 Blood Pressure 109/59 L Pulse Oximetry 95 96 07/30/18 00:01 07/30/18 04:03 07/30/18 04:08 Temperature 97.9 F 98.0 F Pulse Rate 60 60 75 Respiratory Rate 17 17 Blood Pressure 124/60 119/56 L Pulse Oximetry 94 L 96 Intake & Output 07/29/18 07/30/18 07/30/18 18:59 06:59 18:59 Intake Total 1300 / 1300 360 / 360 Balance 1300 / 1300 360 / 360 Intake: IV 1100 / 1100 D5W/LR Inj 1,000 ML @ 60 mls/hr 1000 / 1000 IV.CONT .[id number] [facility] Rx#: [id number] Ancef Inj 1,000 MG In NS Inj 100 / 100 100 ML @ 200 mls/hr IV.SIG DIRECTOR CUSTOM [facility] Rx#:[id number] Oral 360 / 360 Anesthesia Amount 200 / 200 Other: # Urine Diapers 2 Date of Last Bowel Movement 07/28/18 07/28/18 # Bowel Movements 0 0 Narrative: Opens eyes to voice Alert and oriented Follows commands x4 with anti-gravity strength Cervical collar in place Incision: clean, dry, intact PEG tube in place - Urinary Catheter Management Coude Cath placed during this visit: yes Reason for continuing: Hourly intake/output Insertion date: 07/23/18 Insertion time: 01:42 Indwelling Urethral Catheter Cath placed during this visit: no Reason for continuing: Hourly intake/output Condom Cath placed during this visit: no Assessment and Plan - Plan 82 y/o male with Parkinson's disease, C1 arch fracture, C2 type 2 dens fracture s/p C2 odontoid screw by Dr. Currie on 07/24/18. Neurologically stable. Plan: Maintain cervical collar PEG tube in place PT/OT Pain control Personally, I recommend holding anti-coagulation for at least 10 days s/p cervical surgery.
--- NOTE | 2018-07-30 11:34 | P.PNGI ---
Subjective Interval history: Pt is resting in bed, not voicing any concerns <Heather Gomez - Last Filed: 07/30/18 11:26> Physical Exam Vital signs: Vital Signs 07/29/18 12:00 07/29/18 14:00 07/29/18 14:25 Temperature 97.9 F Pulse Rate 54 L 58 L Respiratory Rate 10 L 18 Blood Pressure 133/66 Pulse Oximetry 100 07/29/18 16:00 07/29/18 18:00 07/29/18 20:00 Temperature 97.7 F 97.9 F Pulse Rate 60 64 66 Respiratory Rate 9 L 14 Blood Pressure 113/56 L 109/59 L Pulse Oximetry 97 95 07/29/18 20:40 07/29/18 22:00 07/30/18 00:01 Temperature 97.9 F Pulse Rate 70 60 Respiratory Rate 17 Blood Pressure 124/60 Pulse Oximetry 96 94 L 07/30/18 04:03 07/30/18 04:08 07/30/18 08:00 Temperature 98.0 F 97.2 F L Pulse Rate 60 75 84 Respiratory Rate 17 24 Blood Pressure 119/56 L 126/59 L Pulse Oximetry 96 94 L Intake & Output 07/29/18 07/30/18 07/30/18 18:59 06:59 18:59 Intake Total 1300 / 1300 360 / 360 Balance 1300 / 1300 360 / 360 Intake: IV 1100 / 1100 D5W/LR Inj 1,000 ML @ 60 mls/hr 1000 / 1000 IV.CONT .[id number] [facility] Rx#: [id number] Ancef Inj 1,000 MG In NS Inj 100 / 100 100 ML @ 200 mls/hr IV.SIG SUBASSEMBLER [facility] Rx#:[id number] Oral 360 / 360 Anesthesia Amount 200 / 200 Other: # Urine Diapers 2 Date of Last Bowel Movement 07/28/18 07/28/18 # Bowel Movements 0 0 Narrative: General patient in no acute distress HEENT extraocular movements are intact, nickel sized wound over the top of the patient's head scabbing over. C-collar in place. Cardiovascular S1-S2 audible, RRR, no murmurs rubs or gallops Respiratory clear to auscultation bilaterally Abdomen soft, nontender, nondistended, PEG tube in place Extremities no edema 2+ distal pulses in bilateral upper and lower extremities Neuro alert and oriented - Urinary Catheter Management Coude Cath placed during this visit: yes Reason for continuing: Hourly intake/output Insertion date: 07/23/18 Insertion time: 01:42 Indwelling Urethral Catheter Cath placed during this visit: no Reason for continuing: Hourly intake/output Condom Cath placed during this visit: no <Heather Gomez - Last Filed: 07/30/18 11:26> Vital signs: Vital Signs 07/29/18 18:00 07/29/18 20:00 07/29/18 20:40 Temperature 97.9 F Pulse Rate 64 66 Respiratory Rate 14 Blood Pressure 109/59 L Pulse Oximetry 95 96 07/29/18 22:00 07/30/18 00:01 07/30/18 04:03 Temperature 97.9 F 98.0 F Pulse Rate 70 60 60 Respiratory Rate 17 17 Blood Pressure 124/60 119/56 L Pulse Oximetry 94 L 96 07/30/18 04:08 07/30/18 08:00 07/30/18 12:00 Temperature 97.2 F L 98.4 F Pulse Rate 75 84 71 Respiratory Rate 24 22 Blood Pressure 126/59 L 105/51 L Pulse Oximetry 94 L 93 L Intake & Output 07/29/18 07/30/18 07/30/18 18:59 06:59 18:59 Intake Total 1300 / 1300 360 / 360 Balance 1300 / 1300 360 / 360 Intake: IV 1100 / 1100 D5W/LR Inj 1,000 ML @ 60 mls/hr 1000 / 1000 IV.CONT .[id number] [facility] Rx#: [id number] Ancef Inj 1,000 MG In NS Inj 100 / 100 100 ML @ 200 mls/hr IV.SIG SUBASSEMBLER [facility] Rx#:[id number] Oral 360 / 360 Anesthesia Amount 200 / 200 Other: # Urine Diapers 2 Date of Last Bowel Movement 07/28/18 07/28/18 07/28/18 # Bowel Movements 0 0 - Urinary Catheter Management Coude Cath placed during this visit: no Indwelling Urethral Catheter Cath placed during this visit: no Condom Cath placed during this visit: no <Jorge Melgoza - Last Filed: 07/30/18 16:54> Results - Labs CBC & Chem 7: 07/30/18 04:16 07/30/18 04:16 Laboratory Results - last 24 hr 07/30/18 07/30/18 04:16 04:16 WBC 11.9 H RBC 4.39 L Hgb 13.2 Hct 37.8 L MCV 86.1 MCH 30.2 MCHC 35.0 RDW 13.6 Plt Count 251 MPV 8.2 Neut % (Auto) 89.7 H Lymph % (Auto) 4.0 L [place] % (Auto) 5.4 Eos % (Auto) 0.7 Baso % (Auto) 0.2 Neut # (Auto) 10.7 H Lymph # (Auto) 0.5 L [place] # (Auto) 0.6 Eos # (Auto) 0.1 Baso # (Auto) 0.0 WBC Differential . Differential Comment Auto diff final Sodium 137 Potassium 4.1 Chloride 96 L Carbon Dioxide 32.4 H Anion Gap 9 BUN 15 Creatinine 0.76 Estimated GFR Greater than 89 Random Glucose 126 H Calcium 9.0 Magnesium 2.1 Total Bilirubin 0.7 AST 17 ALT 13 Alkaline Phosphatase 82 Total Protein 6.6 Albumin 3.3 L <Heather Gomez - Last Filed: 07/30/18 11:26> - Labs CBC & Chem 7: 07/30/18 04:16 07/30/18 04:16 Laboratory Results - last 24 hr 07/30/18 07/30/18 04:16 04:16 WBC 11.9 H RBC 4.39 L Hgb 13.2 Hct 37.8 L MCV 86.1 MCH 30.2 MCHC 35.0 RDW 13.6 Plt Count 251 MPV 8.2 Neut % (Auto) 89.7 H Lymph % (Auto) 4.0 L [place] % (Auto) 5.4 Eos % (Auto) 0.7 Baso % (Auto) 0.2 Neut # (Auto) 10.7 H Lymph # (Auto) 0.5 L [place] # (Auto) 0.6 Eos # (Auto) 0.1 Baso # (Auto) 0.0 WBC Differential . Differential Comment Auto diff final Sodium 137 Potassium 4.1 Chloride 96 L Carbon Dioxide 32.4 H Anion Gap 9 BUN 15 Creatinine 0.76 Estimated GFR Greater than 89 Random Glucose 126 H Calcium 9.0 Magnesium 2.1 Total Bilirubin 0.7 AST 17 ALT 13 Alkaline Phosphatase 82 Total Protein 6.6 Albumin 3.3 L <Jorge Melgoza E - Last Filed: 07/30/18 16:54> Assessment and Plan - Plan - Long-term nutritional needs/dysphagia- s/p EGD/PEG on 07/29/18 - fractures of C1 and C2. with c-collar - peripheral neuropathy hypertension and depression. per attending Plan: - TF as recommended - Flush tube after feeding and med administration - GI will sign off - Pt seen and examined by Dr. Melgoza and myself and this note is written on his behalf. <Heather Gomez - Last Filed: 07/30/18 11:26> - Plan Patient seen and examined Agree with above Continue with current supportive care Monitor labs We will sign off <Jorge Melgoza E - Last Filed: 07/30/18 16:54>
[2018-07-30 12:19] VITALS: BP 105/51; PULSE 71; RESP 22; TEMP 98.4; O2SAT 93
--- NOTE | 2018-07-30 15:19 | P.DS ---
Date of admission: 07/22/18 23:01 Primary care physician: Robin Jackson MD, PhD Brief History from admission: S/P Fall DS: Diagnosis - Discharge Diagnosis (1) Dysphagia Status: Acute (2) C1 cervical fracture Status: Acute (3) Closed dens fracture Status: Acute (4) Fall from standing Status: Acute (5) Type II dens fracture of second cervical vertebra Status: Acute (6) Parkinson disease Status: Acute (7) Atrial fibrillation Status: Acute DS: Medications - Discharge Medications Prescriptions: hydrocodone-acetaminophen 15 ml NG/OG Q4H PRN #120 ml PRN Reason: Breakthrough Pain DS: Summary Hospital Course: [place]: Slipped on a wet floor and fell from the standing position striking his head on the tile. No LOC. INJURIES: C1 dens fx C2 fx PMHx: HTN, COPD, Parkinsons, peripheral neuropathy C1 dens fx, C2 fx Neurosurgery consulted, F/U outpatient 07/24: Anterior cervical C2 odontoid screw placement Pain control OOB- PT and OT ordered Crosby J collar Bowel regimen Lovenox Parkinson's disease, Dysphasia Continue home medications 07/29: EGD with PEG placement Dietitian recommends Jevity 1.5@55 mL/h A. fib RVR, HTN Home medications resumed Norvasc 10 mg QD HCTZ 12.5 mg QD Prinivil 10 mg QD Metoprolol 12.5 BID 07/26: A. fib RVR Cardiology consulted, F/U outpatient Continue Amiodarone 200mg BID 07/27: Echo - EF 55-60% Plan of care discussed with patient and RN at bedside. Collaborating Trauma surgeon agrees with plan. Case management consulted to assist with discharge planning. Patient is clear from trauma surgery standpoint to safely discharged to SNF. - Time Spent with Patient Total time spent providing and/or coordinating discharge services: Greater than 30 minutes - Quality: VTE Deep Vein Thrombosis/Pulmonary Embolism Present on Admission: No Exam Vital signs: Vital Signs 07/29/18 16:00 07/29/18 18:00 07/29/18 20:00 Temperature 97.7 F 97.9 F Pulse Rate 60 64 66 Respiratory Rate 9 L 14 Blood Pressure 113/56 L 109/59 L Pulse Oximetry 97 95 07/29/18 20:40 07/29/18 22:00 07/30/18 00:01 Temperature 97.9 F Pulse Rate 70 60 Respiratory Rate 17 Blood Pressure 124/60 Pulse Oximetry 96 94 L 07/30/18 04:03 07/30/18 04:08 07/30/18 08:00 Temperature 98.0 F 97.2 F L Pulse Rate 60 75 84 Respiratory Rate 17 24 Blood Pressure 119/56 L 126/59 L Pulse Oximetry 96 94 L 07/30/18 12:00 Temperature 98.4 F Pulse Rate 71 Respiratory Rate 22 Blood Pressure 105/51 L Pulse Oximetry 93 L Intake & Output 07/29/18 07/30/18 07/30/18 18:59 06:59 18:59 Intake Total 1300 / 1300 360 / 360 Balance 1300 / 1300 360 / 360 Intake: IV 1100 / 1100 D5W/LR Inj 1,000 ML @ 60 mls/hr 1000 / 1000 IV.CONT .[id number] [facility] Rx#: [id number] Ancef Inj 1,000 MG In NS Inj 100 / 100 100 ML @ 200 mls/hr IV.SIG V BELT COVERER [facility] Rx#:[id number] Oral 360 / 360 Anesthesia Amount 200 / 200 Other: # Urine Diapers 2 Date of Last Bowel Movement 07/28/18 07/28/18 07/28/18 # Bowel Movements 0 0 Narrative: GENERAL:82-year-old adult male OOB in a recliner chair. SKIN: Warm and dry. ENT: No nasal bleeding or discharge. Mucous membranes pink and moist. NECK: Crosby J collar in place. Trachea midline. No JVD. CARDIOVASCULAR: Regular rate and rhythm. RESPIRATORY: No accessory muscle use. Lungs are clear to auscultation. Breath sounds equal bilaterally. GASTROINTESTINAL: BS + x 4 quads. Abdomen soft, non-tender, nondistended. MUSCULOSKELETAL: Extremities without cyanosis, or edema. + perfused MAEW. NEUROLOGICAL: A&O. Results Procedures completed during hospitalization: 07/24: Anterior cervical C2 odontoid screw placement 07/29: EGD with PEG placement Labs on day of discharge: Labs from last 24 hours 07/30/18 07/30/18 04:16 04:16 WBC 11.9 H RBC 4.39 L Hgb 13.2 Hct 37.8 L MCV 86.1 MCH 30.2 MCHC 35.0 RDW 13.6 Plt Count 251 MPV 8.2 Neut % (Auto) 89.7 H Lymph % (Auto) 4.0 L [place] % (Auto) 5.4 Eos % (Auto) 0.7 Baso % (Auto) 0.2 Neut # (Auto) 10.7 H Lymph # (Auto) 0.5 L [place] # (Auto) 0.6 Eos # (Auto) 0.1 Baso # (Auto) 0.0 WBC Differential . Differential Comment Auto diff final Sodium 137 Potassium 4.1 Chloride 96 L Carbon Dioxide 32.4 H Anion Gap 9 BUN 15 Creatinine 0.76 Estimated GFR Greater than 89 Random Glucose 126 H Calcium 9.0 Magnesium 2.1 Total Bilirubin 0.7 AST 17 ALT 13 Alkaline Phosphatase 82 Total Protein 6.6 Albumin 3.3 L - Impressions ITS Impressions Cervical Spine CT 07/22/18 21:50 CONCLUSION: 1. Fracture of the dens at the level of the inferior arch of C1 with mild widening anterior but no posterior displaced fragment. 2. Fractures of the posterior arch of C1 on both the right and left side. Head CT 07/22/18 21:50 CONCLUSION: 1. No acute findings in the brain. . Cervical Spine MRI 07/23/18 00:00 CONCLUSION: 1. Fractures of the posterior arch of C1 and the dens unchanged from recent CT. No cord signal abnormalities to suggest contusion. No cord impingement. Moderate degenerative changes as above. Chest X-Ray 07/23/18 00:00 CONCLUSION: 1. Senescent changes and right apical pleural-parenchymal scarring. 2. No acute abnormality. Neck CTA 07/23/18 00:00 CONCLUSION: 1. Atherosclerotic disease of the carotid bulbs but no evidence of significant carotid stenosis. 2. Vertebral arteries are widely patent. No evidence of dissection. 3. Cervical spine fracture fully described on cervical spine CT report. Cervical Spine X-Ray 07/24/18 00:00 CONCLUSION: C2 fixation as above. Abdomen X-Ray 07/27/18 21:54 CONCLUSION: Dobbhoff feeding tube tip is in the mid stomach. Discharge Plan - Discharge Disposition Patient Disposition: Discharge to SNF - Discharge Condition Condition: Stable - Discharge Order Discharge Orders: Discharge Order (Routine); Ordered 07/30/18 Ordered By: Juan Conley - Physicians Team Primary Care Provider: Robin Jackson Attending Provider: Shilpa Mina Other Providers: Ephraim Currie MD ; Sam Leonardo MD ; Blanco Haynes MD ; [facility] ; Chino Moore MD ; Nurys Wade ARNP ; Todd Scruggs MD ; Shilpa Mina MD ; Juan Conley ARNP ; Ana cMkeon MD ; German Bernabe MD ; Omar Bains MD ; [facility] ; Jorge Melgoza MD ; Glen Brice MD ; [facility] ; [facility]
--- NOTE | 2018-07-30 18:12 | P.PNCA ---
Subjective Interval history: alert in nad Medications and Allergies Active Medications: Active Medications Acetaminophen (Tylenol Liq) 650 mg PO Q4H PRN PRN Reason: Pain 1-5 And/Or Fever >101f Last Admin: 07/30/18 13:17 Dose: 650 mg Hydrocodone Bitart/Acetaminophen (Hycet 325/7.5 Mg Liq) 15 ml NG/OG Q4H PRN PRN Reason: BREAKTHROUGH PAIN Al Hydrox/Mg Hydrox/Simethicone (Mag-Al Plus Susp Liq) 30 ml PO Q6H PRN PRN Reason: DYSPEPSIA Al Hydroxide/Mg Hydroxide (Milk Of Magnesia Liq) 30 ml PO Q12H [facility] Last Admin: 07/30/18 09:19 Dose: 30 ml Albuterol (Duoneb Neb (Prn)) 1 ampul NEB Q2HR NEB PRN PRN Reason: SHORTNESS OF BREATH Amiodarone HCl (Cordarone) 200 mg PO Q12HR [facility] Last Admin: 07/30/18 09:19 Dose: 200 mg Aspirin (Ecotrin) 81 mg PO DAILY [facility] Last Admin: 07/30/18 09:18 Dose: 81 mg Bisacodyl (Dulcolax Supp) 10 mg RECTAL DAILY PRN PRN Reason: constipation Carbidopa/Levodopa (Sinemet 25/100 Mg) 1 tab PO BID@1200,1600 [facility] Last Admin: 07/30/18 12:51 Dose: 1 tab Carbidopa/Levodopa (Sinemet 25/100 Mg) 2 tab PO BID@0800,2000 [facility] Last Admin: 07/30/18 09:27 Dose: 2 tab Cetirizine HCl (Zyrtec) 10 mg PO HS [facility] Last Admin: 07/29/18 22:24 Dose: 10 mg Citalopram Hydrobromide (Celexa) 10 mg PO DAILY [facility] Last Admin: 07/30/18 09:18 Dose: 10 mg Clonidine HCl (Catapres) 0.1 mg PO Q6H PRN PRN Reason: HYPERTENSION Enalaprilat (Vasotec Inj) 1.25 mg IV.PUSH Q6H PRN PRN Reason: SBP>180, DBP>95 Enoxaparin Sodium (Lovenox Inj) 40 mg SQ DAILY [facility] Last Admin: 07/30/18 09:20 Dose: 40 mg Hydrochlorothiazide (Microzide) 12.5 mg PO DAILY [facility] Last Admin: 07/30/18 09:19 Dose: 12.5 mg Acetaminophen (Ofirmev Inj) 1,000 mg in 100 mls @ 400 mls/hr IV.SIG Q6H PRN PRN Reason: PAIN SCALE 1 TO 10 Last Infusion: 07/28/18 13:06 Dose: Infused Cefazolin Sodium 1,000 mg/ (Sodium Chloride) 100 mls @ 200 mls/hr IV.SIG SAMPLE PROCESSOR [facility] Stop: 07/31/18 09:44 Last Infusion: 07/29/18 10:23 Dose: Infused Lactulose (Lactulose Liq) 30 ml PO DAILY PRN PRN Reason: SEVERE CONSITIPATION Lisinopril (Prinivil) 10 mg PO DAILY [facility] Last Admin: 07/30/18 09:19 Dose: 10 mg Magnesium Oxide (Mag-Ox) 800 mg PO UNSCH PRN PRN Reason: For Magnesium 1.2 - 1.6 mg/dL Menthol ([place]) 1 lozenge BUCCAL UNSCH PRN PRN Reason: SORE THROAT Metoprolol Tartrate (Lopressor) 12.5 mg PO BID [facility] Last Admin: 07/30/18 09:18 Dose: 12.5 mg Miscellaneous (Pill Splitter) 1 each OTHER UNSCH [facility] Ondansetron HCl (Zofran Inj) 4 mg IV.PUSH Q6H PRN PRN Reason: NAUSEA OR VOMITING Potassium Bicarb/Potassium Chloride (K-Lyte Cl Eff) 50 meq PO UNSCH PRN PRN Reason: For Potassium 3.3 - 3.5 mEq/L Senna/Docusate Sodium (Johanny-Colace) 1 tab PO BID [facility] Last Admin: 07/30/18 09:19 Dose: 1 tab Sennosides (Senokot) 17.2 mg PO Q12H PRN PRN Reason: Moderate Constipation Sodium Chloride (Ns Flush) 2 ml IV.FLUSH BID [facility] Last Admin: 07/30/18 09:32 Dose: Not Given Sodium Chloride (Ns Flush) 2 ml IV.FLUSH PRN PRN PRN Reason: FLUSH AFTER USING IV ACCESS Tramadol/Acetaminophen (Ultracet 37.5/325 Mg) 1 tab PO Q4H PRN PRN Reason: PAIN SCALE 6 TO 10 Allergies Allergy/AdvReac Type Severity Reaction Status Date / Time simvastatin Allergy Intermediate RASH Verified 07/22/18 22:02 haloperidol [From Haldol] Allergy Hallucinati Verified 07/22/18 22:05 ons prochlorperazine Allergy Anaphylaxis Verified 07/22/18 22:05 [From Compazine] Home Medications Medication Instructions Recorded Confirmed Type amlodipine 10 mg PO DAILY 07/22/18 07/22/18 History aspirin 81 mg PO DAILY 07/22/18 07/22/18 History benazepril-hydrochlorothiazide 1 tab PO DAILY 07/22/18 07/22/18 History cetirizine 10 mg PO HS 07/22/18 07/22/18 History citalopram 10 mg PO DAILY 07/22/18 07/22/18 History ibuprofen 800 mg PO TID PRN 07/22/18 07/22/18 History Physical Exam Vital signs: Vital Signs 07/29/18 20:00 07/29/18 20:40 07/29/18 22:00 Temperature 97.9 F Pulse Rate 66 70 Respiratory Rate 14 Blood Pressure 109/59 L Pulse Oximetry 95 96 07/30/18 00:01 07/30/18 04:03 07/30/18 04:08 Temperature 97.9 F 98.0 F Pulse Rate 60 60 75 Respiratory Rate 17 17 Blood Pressure 124/60 119/56 L Pulse Oximetry 94 L 96 07/30/18 08:00 07/30/18 12:00 Temperature 97.2 F L 98.4 F Pulse Rate 84 71 Respiratory Rate 24 22 Blood Pressure 126/59 L 105/51 L Pulse Oximetry 94 L 93 L Intake & Output 07/29/18 07/30/18 07/30/18 18:59 06:59 18:59 Intake Total 1300 / 1300 360 / 360 Balance 1300 / 1300 360 / 360 Intake: IV 1100 / 1100 D5W/LR Inj 1,000 ML @ 60 mls/hr 1000 / 1000 IV.CONT .[id number] [facility] Rx#: [id number] Ancef Inj 1,000 MG In NS Inj 100 / 100 100 ML @ 200 mls/hr IV.SIG SAMPLE PROCESSOR [facility] Rx#:[id number] Oral 360 / 360 Anesthesia Amount 200 / 200 Other: # Urine Diapers 2 Date of Last Bowel Movement 07/28/18 07/28/18 07/28/18 # Bowel Movements 0 0 - Urinary Catheter Management Coude Cath placed during this visit: yes Reason for continuing: Hourly intake/output Insertion date: 07/23/18 Insertion time: 01:42 Indwelling Urethral Catheter Cath placed during this visit: no Reason for continuing: Hourly intake/output Condom Cath placed during this visit: no Results 07/30/18 04:16 07/30/18 04:16 Cardiac Enzymes 07/30/18 Range/Units 04:16 AST 17 (15-37) U/L CBC 07/29/18 07/30/18 Range/Units 03:10 04:16 WBC 6.8 11.9 H (4.0-11.0) th/mm3 RBC 4.30 L 4.39 L (4.50-5.90) mil/mm3 Hgb 12.9 L 13.2 (13.0-17.0) gm/dL Hct 37.9 L 37.8 L (39.0-51.0) % Plt Count 242 251 (150-450) th/mm3 Neut # (Auto) 10.7 H (1.8-7.7) th/mm3 Lymph # (Auto) 0.5 L (1.0-4.8) th/mm3 [place] # (Auto) 0.6 (0.0-0.9) th/mm3 Eos # (Auto) 0.1 (0.0-0.4) th/mm3 Baso # (Auto) 0.0 (0.0-0.2) th/mm3 Comprehensive Metabolic Panel 07/30/18 Range/Units 04:16 Sodium 137 (136-145) meq/L Potassium 4.1 (3.5-5.1) meq/L Chloride 96 L (98-107) meq/L Carbon Dioxide 32.4 H (21.0-32.0) meq/L BUN 15 (7-18) mg/dL Creatinine 0.76 (0.60-1.30) mg/dL Calcium 9.0 (8.5-10.1) mg/dL AST 17 (15-37) U/L ALT 13 (12-78) U/L Alkaline Phosphatase 82 (45-117) U/L Total Protein 6.6 (6.4-8.2) g/dL Albumin 3.3 L (3.4-5.0) g/dL Intake and Output 07/30/18 07/30/18 07/30/18 06:59 14:59 22:59 Intake Total 360 / 360 Balance 360 / 360 Intake: Oral 360 / 360 Other: Date of Last Bowel Movement 07/28/18 07/28/18 # Bowel Movements 0 Assessment and Plan - Assessment (1) Atrial fibrillation Code(s): I48.91 - Unspecified atrial fibrillation Status: Acute (2) C1 cervical fracture Code(s): S12.000A - Unspecified displaced fracture of first cervical vertebra, initial encounter for closed fracture Status: Acute (3) Closed dens fracture Code(s): S12.100A - Unspecified displaced fracture of second cervical vertebra, initial encounter for closed fracture Status: Acute (4) Fall from standing Code(s): W19.XXXA - Unspecified fall, initial encounter Status: Acute (5) Type II dens fracture of second cervical vertebra Code(s): S12.110A - Anterior displaced Type II dens fracture, initial encounter for closed fracture Status: Acute (6) Parkinson disease Code(s): G20 - Parkinson's disease Status: Acute - Plan 1.) PAF - in nsr on monitor, on po amio, i indicated to me in the precense of his son that he wanted to start coumadin, he will need clearance from by Dr Ephraim Roth, due to [id number] score = 2, to lower risk of life threatening or debilitating cva, patient discharged prior to my note being written without me knowing @ discharge or d/w Dr Ephraim Roth (2) C1 cervical fracture Qualifiers: Encounter type: initial encounter Fracture type: closed Fracture morphology : posterior arch Fracture alignment: displaced Qualified Code(s): S12.030A - Displaced posterior arch fracture of first cervical vertebra, initial encounter for closed fracture (5) Type II dens fracture of second cervical vertebra Qualifiers: Encounter type: initial encounter Fracture type: closed Fracture alignment: posteriorly displaced Qualified Code(s): S12.111A - Posterior displaced Type II dens fracture, initial encounter for closed fracture
== END 2018-07-30 14:00 ==
LOC: PHED 21:32 → PHEDA 23:01 → N03 07-23 00:30 → N06 07-29 23:53
PROVIDERS: ADMIT Surgery Trauma Surgery; ATTEND Surgery Trauma Surgery
PROC: [UNRECOGNIZED PROCEDURE] (2018-07-24 15:33)